=== PATIENT | female | born 1955 | race Caucasian/White ===

== ENCOUNTER → 2017-07-03 | Outpatient (CLI) | payer OTHER ==
[~2017-07-03] MED LIST: ACET-1175 PO; ALUMSUS68 PO; BABY SHAMPOO TOP; CARB1SOL8 OT; CHONCAP PO; CLR10 PO; CLTP PO; CLX20 PO; FLNIN NAE; GLUC10007 PO; KLN5X PO; LOPE-5 PO; LOVA20TA4 PO; MULT-506 PO; OXYB15TA12 PO; SALI0.6517 NAE; [UNRECOGNIZED DRUG - CODE] TOP
--- NOTE | 2017-07-04 15:22 | MAMMOGRAPHY REPORT ---
BILATERAL DIGITAL SCREENING MAMMOGRAM WITH CAD: 07/03/2017 CLINICAL HISTORY: Routine screening. Patient has no complaints. TECHNIQUE: Current study was also evaluated with a Computer Aided Detection (CAD) system. Bilateral CC and MLO views were obtained. Note that there were difficulties with positioning due to the patie nt's condition. COMPARISON: Comparison is made to exams dated: 07/02/2016 mammogram, 06/29/2015 mammogram, 4 mammogram, 06/23/2013 mammogram, 06/22/2012 mammogram, and 06/13/2010 mammogram - [facility]. BREAST COMPOSITION: The tissue of both breasts is almost entirely fatty. FINDINGS: No suspicious masses, calcifications, or areas of architectural distortion are noted in ei ther breast. There has been no significant interval change compared to prior exams. Scattered bilater al benign-appearing calcifications are not significantly changed. Small benign appearing mass in the left lower inner quadrant is stable. IMPRESSION: ACR BI-RADS CATEGORY 2: BENIGN There is no mammographic evidence of malignancy. A 1 year screening mammogram is recommended. The pa tient will receive written notification of the results. Approximately 10% of breast cancers are not detected with mammography. A negative mammographic report should not delay biopsy if a clinically suggestive mass is present. Nyasia Mcclure M.D. ah/:07/03/2017 16:17:03 Cyber Software Engineer: Meseret VENEGAS(R)(M), [facility] letter sent: Normal 1/2 BI-RADS Code: ACR BI-RADS Category 2: Benign
== END | disposition home or self-care (01) ==
LOC: C.MAMM 14:55
PROVIDERS: ATTEND Family Medicine
DX: Z12.31 Encounter for screening mammogram for malignant neoplasm of breast (principal)

== ENCOUNTER 2017-10-02 13:12 | Emergency (ER) | payer OTHER ==
[~2017-10-02 13:12] MED LIST changes: -CARB1SOL8 OT; -CLR10 PO; -KLN5X PO; -LOVA20TA4 PO; -MULT-506 PO
[2017-10-02 13:16] VITALS: TEMP 36.4
--- NOTE | 2017-10-02 14:07 | DIAGNOSTIC IMAGING REPORT ---
HEAD CT NONCONTRAST CT DOSE: HISTORY: Fall, head pain TECHNIQUE: Multiaxial CT images of the head were performed without the use of intravenous contrast. Automated exposure control was utilized for this study. A dose lowering technique was utilized adhering to the principles of ALARA. Comparison: Head CT 06/20/2015. Findings: The paranasal sinuses and mastoid air cells are clear. The calvarium and skull base are intact. The ventricles and sulci are within normal limits. There is no mass, hematoma, midline shift, or acute infarct. Impression: No acute intracranial abnormality. Electronically signed by: Jason Goff M.D. 10/02/2017 2:06 PM Dictated Date/Time: 10/02/2017 1:58 PM
--- NOTE | 2017-10-02 14:11 | DIAGNOSTIC IMAGING REPORT ---
CT OF THE CERVICAL SPINE WITHOUT CONTRAST CLINICAL HISTORY: Fall. COMPARISON STUDY: Cervical spine CT June 20, 2015. TECHNIQUE: Helical axial images of the cervical spine were obtained without IV contrast. Sagittal and coronal reconstructions were viewed. A dose lowering technique was utilized adhering to the principles of ALARA. FINDINGS: There is straightening of the normal cervical lordosis. Alignment is otherwise anatomic. The craniocervical junction is intact. There is no acute cervical spine fracture or prevertebral edema. There is extensive anterior and posterior osteophytosis with moderate multilevel disc space narrowing and mild multilevel facet arthrosis. There is an incomplete posterior arch of C1. A right lobe thyroid nodule is again noted. IMPRESSION: No acute cervical spine fracture or subluxation. Electronically signed by: Ryan Jane M.D. 10/02/2017 2:10 PM Dictated Date/Time: 10/02/2017 2:03 PM
--- NOTE | 2017-10-02 14:18 | DIAGNOSTIC IMAGING REPORT ---
R ELBOW MIN 3 VIEWS ROUTINE CLINICAL HISTORY: Fall, R elbow pain trauma. Pain. COMPARISON: None. DISCUSSION: Generalized degenerative change all major joint compartments. Moderate osteophytic change throughout. No evidence for significant joint effusion. Cortical margins appear intact. Possible subtle cortical defect of the right humeral neck on the single AP projection. This cannot be duplicated on any additional view. IMPRESSION: Moderate degenerative change. Artifact versus small short segment cortical defect radial neck. CT of the elbow is suggested as follow-up. The above report was generated using voice recognition software. It may contain grammatical, syntax or spelling errors. Electronically signed by: Tono Jeffery M.D. 10/02/2017 2:17 PM Dictated Date/Time: 10/02/2017 2:15 PM
--- NOTE | 2017-10-02 14:34 | EMERGENCY ROOM VISIT NOTE ---
History First contact with patient: 13:20 Chief Complaint: FALL Stated Complaint: FELL, HIT HEAD AND R ARM History of Present Illness The patient is a 62 year old female who presents to the Emergency Room via private vehicle accompanied by caregiver with complaints of "fell, hit head and right arm". The patient is intellectually disabled and lives with a local personal nursing home/skills. She converses well. Was identified that yesterday she was walking, and fell striking the frontal region of her head as well as her right elbow. There was no loss of consciousness. Since that time she's been complaining of a headache, and right elbow pain. There has been no vomiting. Her immunizations are up-to-date. Review of Systems A complete 10-point Review of Systems was discussed with the patient, with pertinent positives and negatives listed in the History of Present Illness. All remaining Review of Systems questions can be considered negative unless otherwise specified. Past Medical/Surgical History Medical Problems: (1) Degenerative disc disease (2) Depression (3) Left leg pain (4) Mental retardation (5) Migraine Social History Smoking Status: Never Smoker Alcohol Use: none Drug Use: none Marital Status: single Housing Status: assisted living Occupation Status: disabled Current/Historical Medications Scheduled Calcium Carbonate-Cholecalcife (Calcium 600+D3), 1 TAB PO BID Citalopram Hydrobromide (Celexa), 20 MG PO DAILY Clonazepam (Clonazepam), 0.25 MG PO DAILY Diphenhydramine-Zinc Acetate (Benadryl Extra Strength), 1 APPLN TOP Q4 Fluticasone Propionate (Nasal) (Flonase Allergy Relief), 2 SPRAYS NEVAEH DAILY Glucosamine-Chondroitin (Glucosamine-Chondroitin D), 1 CAP PO DAILY Loratadine (Claritin), 10 MG PO DAILY Lovastatin (Mevacor), 20 MG PO DAILY Multivitamin (Multivitamin), 1 TAB PO DAILY Nasal Moisturizer Combination ([place] Ultra Saline Nasal), 1 SPRAY NEVAEH PRN UD Oxybutynin Chloride (Ditropan Xl), 2 TAB PO DAILY Polyethylene Glycol 3350 (Miralax), 17 GM PO BID Scheduled PRN Acetaminophen (Tylenol), 1-2 TABS PO TID PRN for Pain or Fever Carbamide Peroxide (Otic) (Debrox), 1 APPLN OT UD PRN for EAR WAX BUILD UP Loperamide Hcl (Imodium), 2 MG PO QID PRN for Diarrhea Pseudoephedrine Hcl (Sudafed Nasal Decongestan), 1 TAB PO Q4-6HRS PRN for Nasal Congestion Physical Exam Vital Signs Date Time Temp Pulse Resp B/P (MAP) Pulse Ox O2 Delivery O2 Flow Rate FiO2 10/02/17 15:16 59 20 151/78 100 Room Air 10/02/17 13:16 36.4 68 20 137/83 98 Room Air Physical Exam VITAL SIGNS - Vital signs and nursing notes were reviewed. Stable. GENERAL -62-year-old female appearing her stated age who is in no acute distress. Communicates well with provider and answers questions appropriately. SKIN - Without rashes. There is an abrasion overlying the dorsal aspect of the right elbow as well as the right superior frontal region of the patient's forehead. There is no bleeding noted. These are beginning to heal. HEAD - NC/AT. No franco signs or raccoons eyes. Small abrasion is noted above. EYES -Sclera anicteric. EARS - No deformities of external structures noted on gross examination bilaterally. No hemotympanum. NOSE - Midline and without cyanosis. No epistaxis or purulent drainage noted. MOUTH/OROPHARYNX - Without perioral cyanosis. NECK - Neck with FROM. No C-spine tenderness. LUNGS - Chest wall symmetric without accessory muscle use, intercostals retractions, or central cyanosis. Normal vesicular breath sounds CTA B/L. No wheezes, rales, or rhonchi appreciated. CARDIAC - RRR with S1/S2. No murmur, rubs, or gallops appreciated. EXTREMITIES - No clubbing or peripheral cyanosis. No pretibial edema present. Right elbow tenderness. There is no proximal or distal tenderness other than that pinpoint at the right elbow. Decreased range of motion of the right elbow secondary to pain. +5/5 strength noted in UE/LE bilaterally. Medical Decision & Procedures ER Provider Diagnostic Interpretation: HEAD CT NONCONTRAST CT DOSE: HISTORY: Fall, head pain TECHNIQUE: Multiaxial CT images of the head were performed without the use of intravenous contrast. Automated exposure control was utilized for this study. A dose lowering technique was utilized adhering to the principles of ALARA. Comparison: Head CT 06/20/2015. Findings: The paranasal sinuses and mastoid air cells are clear. The calvarium and skull base are intact. The ventricles and sulci are within normal limits. There is no mass, hematoma, midline shift, or acute infarct. Impression: No acute intracranial abnormality. Electronically signed by: Jason Goff M.D. 10/02/2017 2:06 PM Dictated Date/Time: 10/02/2017 1:[address] OF THE CERVICAL SPINE WITHOUT CONTRAST CLINICAL HISTORY: Fall. COMPARISON STUDY: Cervical spine CT June 20, 2015. TECHNIQUE: Helical axial images of the cervical spine were obtained without IV contrast. Sagittal and coronal reconstructions were viewed. A dose lowering technique was utilized adhering to the principles of ALARA. FINDINGS: There is straightening of the normal cervical lordosis. Alignment is otherwise anatomic. The craniocervical junction is intact. There is no acute cervical spine fracture or prevertebral edema. There is extensive anterior and posterior osteophytosis with moderate multilevel disc space narrowing and mild multilevel facet arthrosis. There is an incomplete posterior arch of C1. A right lobe thyroid nodule is again noted. IMPRESSION: No acute cervical spine fracture or subluxation. Electronically signed by: Ryan Jane M.D. 10/02/2017 2:10 PM R ELBOW MIN 3 VIEWS ROUTINE CLINICAL HISTORY: Fall, R elbow pain trauma. Pain. COMPARISON: None. DISCUSSION: Generalized degenerative change all major joint compartments. Moderate osteophytic change throughout. No evidence for significant joint effusion. Cortical margins appear intact. Possible subtle cortical defect of the right humeral neck on the single AP projection. This cannot be duplicated on any additional view. IMPRESSION: Moderate degenerative change. Artifact versus small short segment cortical defect radial neck. CT of the elbow is suggested as follow-up. The above report was generated using voice recognition software. It may contain grammatical, syntax or spelling errors. Electronically signed by: Tono Jeffery M.D. 10/02/2017 2:[address] SCAN OF THE RIGHT ELBOW WITHOUT IV CONTRAST CLINICAL HISTORY: Fall with right elbow pain. COMPARISON STUDY: Radiographs of the right elbow dated 10/02/2017. TECHNIQUE: CT scan of the right elbow is performed from the distal humerus to the radial and ulnar shafts. Images are reviewed in the axial, sagittal, and coronal planes. IV contrast was not administered for this examination. A dose lowering technique was utilized adhering to the principles of ALARA. The examination is degraded by motion artifact. CT DOSE: 226.90 mGy.cm FINDINGS: The skeletal structures are osteopenic. No fracture is identified. The joint spaces of the elbow are maintained. Enthesophytes are present along the humeral epicondyles. Minimal spurring is seen along the radial head. No joint effusion is identified. There is dorsal soft tissue swelling. IMPRESSION: 1. Dorsal soft tissue swelling with no right elbow fracture identified. 2. Osteopenia and degenerative change as above. Dictated: 10/02/2017 3:05 PM Transcribed: 10/02/2017 3:26 PM R[place]hawn Electronically signed by: Gregg Ponce M.D. 10/02/2017 3:38 PM Dictated Date/Time: 10/02/2017 3:05 PM Medical Decision Patient was seen and evaluated as above. She presents to us today status post fall with a headache and right elbow pain. She is nontoxic on exam. Decision was made to obtain a CT scan of the patient's head, and neck secondary to the potential distracting injury. There is no fracture or dislocation. The x-ray of the right elbow does reveal a potential fracture versus artifact. Radiologist does recommend CT scan of the patient's elbow for definitive identification of potential fracture. This was obtained. Results as above. There is no fracture. I suspect the patient has contusions of these regions and soft tissue bruising but do not suspect any fracture. I do not suspect any intracranial bleeding. She will be discharged home with family doctor follow- up for her CT scan of her results as well as her visit here today. They were educated upon management, educated upon worrisome symptoms in which to return, had questions answered prior to discharge, and were discharged home in good condition. Vital signs reviewed and reveal that her blood pressure is elevated I believe secondary to situation. Medications list was reviewed. Case was discussed with the attending physician who also personally evaluated the patient. In the evaluation and treatment of this patient, the following differential diagnoses were considered: Concussion, Contrecoup Injury, Brain Tumor, Depression, Encephalitis, Hypothyroidism, Meningitis, CVA, TIA, Migraine, Cluster Headache, Intracranial Abnormality, Intracranial Hemorrhage, Subdural Hematoma, Subarachnoid Hemorrhage, Hydrocephalus, Forearm Contusion, Radial Head Fracture, Radial Styloid Process Fracture, Ulnar Styloid Process Fracture, Radius Fracture, Ulnar Fracture, Tennis Elbow, Golfer's Elbow, or Elbow Fracture. Impression Primary Impression: Fall Additional Impression: Contusion of multiple sites Departure Information Dispostion Home / Self-Care Condition GOOD Referrals No Doctor, Assigned (PCP) Patient Instructions [facility] Additional Instructions You have been treated in the Emergency Department for a Closed Head Injury. CT Scan of your head/brain/neck/elbow demonstrated no acute bleeding or other emergent findings. This does not completely rule out the risk for future damage to the brain. For pain control, you can use the following [id number] medicines if no liver or kidney problems: - Regular strength (325mg/tab) Tylenol (acetaminophen) 2 tabs every 4-6 hours as needed. Do not exceed 12 tablets in a 24 hour period. Avoid taking more than 3 grams (3000 mg) of Tylenol per day. This includes any other sources of acetaminophen you may take on a regular basis. - Regular strength (200 mg/tab) Advil (ibuprofen) 1-2 tabs every 4-6 hours as needed. Do not exceed a dose of 3200 mg per day. You should relax in a quiet, dark place for the rest of the day. Avoid any possible triggers including: cigarette smoke, caffeine, nicotine, chocolate, wine, beer, loud noises or music, or bright lights. You should schedule a follow-up appointment in 2-3 days with your Primary Care Provider or established Neurologist for further evaluation and treatment of your Headache and follow up for the xray and ct findings. Return to the Emergency Department if your current symptoms worsen despite treatment course outlined above, or if you develop any of the following symptoms : intractable pain despite aforementioned treatment course, visual disturbances , loss of vision, unilateral weakness or facial drooping, slurring of speech, loss of coordination, or loss of consciousness. HEAD CT NONCONTRAST CT DOSE: HISTORY: Fall, head pain TECHNIQUE: Multiaxial CT images of the head were performed without the use of intravenous contrast. Automated exposure control was utilized for this study. A dose lowering technique was utilized adhering to the principles of ALARA. Comparison: Head CT 06/20/2015. Findings: The paranasal sinuses and mastoid air cells are clear. The calvarium and skull base are intact. The ventricles and sulci are within normal limits. There is no mass, hematoma, midline shift, or acute infarct. Impression: No acute intracranial abnormality. Electronically signed by: Jason Goff M.D. 10/02/2017 2:06 PM Dictated Date/Time: 10/02/2017 1:[address] OF THE CERVICAL SPINE WITHOUT CONTRAST CLINICAL HISTORY: Fall. COMPARISON STUDY: Cervical spine CT June 20, 2015. TECHNIQUE: Helical axial images of the cervical spine were obtained without IV contrast. Sagittal and coronal reconstructions were viewed. A dose lowering technique was utilized adhering to the principles of ALARA. FINDINGS: There is straightening of the normal cervical lordosis. Alignment is otherwise anatomic. The craniocervical junction is intact. There is no acute cervical spine fracture or prevertebral edema. There is extensive anterior and posterior osteophytosis with moderate multilevel disc space narrowing and mild multilevel facet arthrosis. There is an incomplete posterior arch of C1. A right lobe thyroid nodule is again noted. IMPRESSION: No acute cervical spine fracture or subluxation. Electronically signed by: Ryan Jane M.D. 10/02/2017 2:10 PM R ELBOW MIN 3 VIEWS ROUTINE CLINICAL HISTORY: Fall, R elbow pain trauma. Pain. COMPARISON: None. DISCUSSION: Generalized degenerative change all major joint compartments. Moderate osteophytic change throughout. No evidence for significant joint effusion. Cortical margins appear intact. Possible subtle cortical defect of the right humeral neck on the single AP projection. This cannot be duplicated on any additional view. IMPRESSION: Moderate degenerative change. Artifact versus small short segment cortical defect radial neck. CT of the elbow is suggested as follow-up. The above report was generated using voice recognition software. It may contain grammatical, syntax or spelling errors. Electronically signed by: Tono Jeffery M.D. 10/02/2017 2:[address] SCAN OF THE RIGHT ELBOW WITHOUT IV CONTRAST CLINICAL HISTORY: Fall with right elbow pain. COMPARISON STUDY: Radiographs of the right elbow dated 10/02/2017. TECHNIQUE: CT scan of the right elbow is performed from the distal humerus to the radial and ulnar shafts. Images are reviewed in the axial, sagittal, and coronal planes. IV contrast was not administered for this examination. A dose lowering technique was utilized adhering to the principles of ALARA. The examination is degraded by motion artifact. CT DOSE: 226.90 mGy.cm FINDINGS: The skeletal structures are osteopenic. No fracture is identified. The joint spaces of the elbow are maintained. Enthesophytes are present along the humeral epicondyles. Minimal spurring is seen along the radial head. No joint effusion is identified. There is dorsal soft tissue swelling. IMPRESSION: 1. Dorsal soft tissue swelling with no right elbow fracture identified. 2. Osteopenia and degenerative change as above. Dictated: 10/02/2017 3:05 PM Transcribed: 10/02/2017 3:26 PM CHARIS_Mitch Electronically signed by: Gregg Ponce M.D. 10/02/2017 3:38 PM Dictated Date/Time: 10/02/2017 3:05 PM Problem Qualifiers
[2017-10-02 15:16] VITALS: BP 151/78; PULSE 59; O2SAT 100
--- NOTE | 2017-10-02 15:26 | DIAGNOSTIC IMAGING REPORT ---
CT SCAN OF THE RIGHT ELBOW WITHOUT IV CONTRAST CLINICAL HISTORY: Fall with right elbow pain. COMPARISON STUDY: Radiographs of the right elbow dated 10/02/2017. TECHNIQUE: CT scan of the right elbow is performed from the distal humerus to the radial and ulnar shafts. Images are reviewed in the axial, sagittal, and coronal planes. IV contrast was not administered for this examination. A dose lowering technique was utilized adhering to the principles of ALARA. The examination is degraded by motion artifact. CT DOSE: 226.90 mGy.cm FINDINGS: The skeletal structures are osteopenic. No fracture is identified. The joint spaces of the elbow are maintained. Enthesophytes are present along the humeral epicondyles. Minimal spurring is seen along the radial head. No joint effusion is identified. There is dorsal soft tissue swelling. IMPRESSION: 1. Dorsal soft tissue swelling with no right elbow fracture identified. 2. Osteopenia and degenerative change as above. Dictated: 10/02/2017 3:05 PM Transcribed: 10/02/2017 3:26 PM CHARIS_Mitch Electronically signed by: Gregg Ponce M.D. 10/02/2017 3:38 PM Dictated Date/Time: 10/02/2017 3:05 PM
[2017-10-02] MEDS ORDERED: CALC1TAB74 PO (15:40)
[2017-10-02] MEDS ORDERED: CARB1SOL8 OT ×2 (15:40→17:00)
[2017-10-02] MEDS ORDERED: OXYB15TA12 PO (15:40)
[2017-10-02] MEDS ORDERED: IMD/2 PO (15:40)
[2017-10-02] MEDS ORDERED: GLUC500C5 PO (15:40)
[2017-10-02] MEDS ORDERED: FLUT0.15 NAE (15:40)
[2017-10-02] MEDS ORDERED: DIPHCRE TOP (15:40)
[2017-10-02] MEDS ORDERED: POLY335019 PO (15:40)
[2017-10-02] MEDS ORDERED: ACET-1256 PO (15:40)
[2017-10-02] MEDS ORDERED: PSEU30TA3 PO (15:40)
[2017-10-02] MEDS ORDERED: NASASPR NAE (15:40)
[2017-10-02] MEDS ORDERED: CITA20TA9 PO (15:40)
--- NOTE | 2017-10-02 15:52 | EMERGENCY ROOM VISIT NOTE ---
ED Visit Note First contact with patient: 13:20 The patient was seen and examined with Jake Mosquera PA-C. I agree with the history, physical and findings. Please see the note for disposition and details.
[2017-10-02] MEDS ORDERED: KLN5X PO (17:00)
[2017-10-02] MEDS ORDERED: MULT-506 PO (18:57)
[2017-10-02] MEDS ORDERED: CLR10 PO (19:01)
[2017-10-02] MEDS ORDERED: LOVA20TA4 PO (19:04)
== END 2017-10-02 16:03 | disposition home or self-care (01) ==
LOC: C.EDB 13:14 → C.EDD 16:03
DX: S00.83XA Contusion of other part of head, initial encounter (principal); S50.01XA Contusion of right elbow, initial encounter; W18.30XA Fall on same level, unspecified, initial encounter; Y92.199 Unspecified place in other specified residential institution as the place of occurrence of the external cause; S00.81XA Abrasion of other part of head, initial encounter; S50.311A Abrasion of right elbow, initial encounter; F79 Unspecified intellectual disabilities; F32.9 Major depressive disorder, single episode, unspecified

== ENCOUNTER 2017-12-26 14:02 | Emergency (ER) | payer OTHER ==
[~2017-12-26] VITALS: Ht 167.6 cm; Wt 96.0 kg
[~2017-12-26 14:02] MED LIST changes: -ACET-1175 PO; +ACET-1256 PO; -ALUMSUS68 PO; -BABY SHAMPOO TOP; +CALC1TAB74 PO; +CARB1SOL8 OT; -CHONCAP PO; +CITA20TA9 PO; +CLR10 PO; -CLTP PO; -CLX20 PO; +DIPHCRE TOP; -FLNIN NAE; +FLUT0.15 NAE; -GLUC10007 PO; +GLUC500C5 PO; +IMD/2 PO; +KLN5X PO; -LOPE-5 PO; +LOVA20TA4 PO; +MULT-506 PO; +NASASPR NAE; +POLY335019 PO; +PSEU30TA3 PO; -SALI0.6517 NAE; -[UNRECOGNIZED DRUG - CODE] TOP
[2017-12-26] MEDS ORDERED: LIDO/EPINEPHRINE/SOD BICARB 20 ML VIAL INFIL ONE (14:08)
[2017-12-26] MEDS ORDERED: XYLOCAINE 1%/SOD BICARB 20 ML VIAL INFIL ONE (14:09)
[2017-12-26 14:10] VITALS: TEMP 37; Ht 167.6 cm; Wt 96.0 kg
[2017-12-26] MEDS ORDERED: ACETAMINOPHEN 500 MG TAB PO STA (14:18)
[2017-12-26] MEDS ORDERED: LIDOCAINE/EPINEPH/TETRACAINE 1 EA SYR ONE (14:18)
[2017-12-26] MEDS ORDERED: LIDOCAINE/EPINEPH/TETRACAINE 1 EA SYR EXT STA (14:18)
--- NOTE | 2017-12-26 14:28 | EMERGENCY ROOM VISIT NOTE ---
ED Visit Note First contact with patient: 14:10 CHIEF COMPLAINT: Fall, facial laceration HISTORY OF PRESENT ILLNESS: This 62-year-old female patient presents emergency department from [facility] via EMS after a ground-level fall with resultant facial laceration that occurred approximately 1 hour ago. Patient states that she was walking outside up a hill when she lost her balance and fell forward hitting her face on the pavement of the road. Patient complains of forehead pain and nose pain. There was no loss of consciousness, vomiting, or unusual behavior afterwards. Patient has mental disability at baseline, she is at her cognitive baseline per EMS. She denies any neck pain. No headache, nausea, or blurred vision. There is minimal bleeding from the laceration. The patient rates the pain as 2/10. The patient's tetanus shot is up to date. She denies any chest pain, shortness of breath, back pain, abdominal pain, pain in the extremities, weakness or numbness in the extremities, or unusual rash. REVIEW OF SYSTEMS: A complete 10 point review of systems was reviewed with the patient with pertinent positives and negatives as per history of present illness. All else were negative. ALLERGIES: No known allergies MEDICATIONS: Reviewed in chart. PMH: Reviewed in chart. SOCIAL HISTORY: Resident at [facility]. Denies tobacco use. PHYSICAL EXAM: VITAL SIGNS - Vital signs and nursing notes were reviewed. GENERAL - Pleasant and cooperative. No acute distress. Communicates well with provider and answers questions appropriately. HEAD - Normocephalic. No Kenyon's Sign or Raccoon's Eyes. No depressed skull fractures palpable. FACE - No facial bone tenderness or mandibular tenderness. The mouth can open fully. The teeth are well aligned. No loose or chipped teeth. SKIN - There is a 3 cm laceration on the left forehead just above the eyebrow. The edges gape apart with traction. There is no active bleeding and no foreign material in the wound. There are no deep structures present. Capillary refill less than two seconds. Normal sensation to light and sharp touch. EYES - PERRLA with EOMI bilaterally. Without subconjunctival hemorrhage. Palpebral conjunctiva pink and moist with no injection. EARS - No deformities of external structures noted on gross examination bilaterally. No hemotympanum present. No tympanic perforation noted. NOSE - Midline and without cyanosis. No epistaxis or clear watery discharge noted. There is a mild abrasion noted over the bridge of the nasal bone, no ecchymosis or significant swelling. Septum midline without deviation. No septal hematoma noted. MOUTH/OROPHARYNX - Without perioral cyanosis. Tongue midline with equal elevation of palate bilaterally. No blood noted in the oropharynx. No tonsillar hypertrophy, erythema, or exudates noted. No dental fractures noted. NECK - FROM assessed. No nuchal rigidity. No tenderness to palpation over the cervical spinous processes. No cervical paraspinal muscle tenderness noted. LUNGS - Chest wall symmetric without accessory muscle use, intercostals retractions, or central cyanosis. Normal vesicular breath sounds CTA B/L. No wheezes, rales, or rhonchi appreciated. CARDIAC - RRR with S1/S2. No murmur, rubs, or gallops appreciated. ABDOMEN - Abdominal contour normal without pulsations or visible masses. BS normoactive all four quadrants. EXTREMITIES - No gross deformities noted of the extremities. +2 radial and dorsalis pedis pulses palpated throughout. FROM with no tremors, fasciculations , or clonus noted on PROM throughout. +5/5 strength noted in UE/LE bilaterally. NEUROLOGIC - Cranial nerves II through XII grossly intact, no facial droop. Sensory intact to light touch throughout. Negative Pronator Drift. PSYCH - A&Ox4 and cooperates fully with examiner. Pt is very pleasant and interacts well with examiner. ED COURSE AND MEDICAL DECISION MAKING: CC: Patient presenting with complaint of fall, facial laceration DIFFERENTIAL DIAGNOSIS: Includes, but not limited to facial laceration, contusion, abrasion, skull fracture, facial bone fracture, intracranial hemorrhage, cervical spine injury, viral illness, bronchitis, pneumonia, strep, among others. IMAGING: HEAD WITHOUT CONTRAST (CT) CLINICAL HISTORY: 62 years-old Female with fall, hit face, eval trauma. Acute facial injury status post fall. Left forehead laceration TECHNIQUE: Multiple axial CT images of the head were obtained without contrast. A dose lowering technique was utilized adhering to the principles of ALARA. CT DOSE: 1005.77 mGy.cm COMPARISON: Head CT 10/02/2017. FINDINGS: No acute intracranial hemorrhage, midline shift, intracranial mass, hydrocephalus, territorial ischemia or abnormal extra-axial collection. Ill-defined areas of low-attenuation within the subcortical white matter suggest chronic microvascular ischemic changes. The calvarium is intact. The paranasal sinuses, mastoid air cells, and middle ear cavities are clear. Mild soft tissue swelling about the left forehead. IMPRESSION: No acute intracranial abnormality or calvarial fracture. ----- FACIAL BONES-MXILLOFAC WITHOUT CLINICAL HISTORY: 62 years-old Female presenting with fall, hit face, eval trauma. TECHNIQUE: Multidetector CT of the face was performed without the use of intravenous contrast. IV contrast: None. A dose lowering technique was used consistent with the principles of ALARA (as low as reasonably achievable). COMPARISON: 06/20/2015. CT DOSE (mGy.cm): The estimated cumulative dose is 1005.[address] head. 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 Paranasal sinuses and mastoid air cells clear. Skull base intact. Slight anterior and inferior subluxation of the right mandibular condyle relative to the right temporal mandibular fossa. No mandibular fracture. Slight leftward deviation of the bony nasal septum without evidence of fracture. Orbits intact. Limited intracranial evaluation within normal limits. Soft tissues of the face within normal limits. Dentures are in place. The upper airway is grossly patent. Nasal bones are slightly deviated to the right with deformity of the nasal bones suggesting nondisplaced fracture. IMPRESSION: 1. Possible nondisplaced nasal bone fractures. Correlate with point tenderness. Alternatively, this may represent a chronic deformity. 2. No other evidence of facial fracture. 3. Subluxation of the right temporomandibular joint. Correlate clinically. ----- CERVICAL SPINE W/O CLINICAL HISTORY: 62 years-old Female with fall, hit face, eval trauma. Acute posttraumatic neck pain COMPARISON: CT cervical spine 10/02/2017. TECHNIQUE: Multiple axial CT images of the cervical spine were obtained without contrast. A dose lowering technique was utilized adhering to the principles of ALARA. FINDINGS: No is made of congenital incomplete fusion of the posterior arch C1. No acute fracture or subluxation. Multilevel facet arthrosis, endplate spurring and intervertebral disc space narrowing. Large anterior and posterior endplate osteophytes are seen. Large posterior disc ossify complex formation at C4-C5. Evaluation of the central canal and neuroforamen would be better evaluated by MRI. No pneumothorax. 1.1 cm low attenuating right thyroid nodule. No pathologically enlarged lymph nodes identified. Layering secretions are noted within the airway. Mastoid air cells and middle ear cavities are clear. Mild mucosal thickening of the ethmoid air cells. IMPRESSION: No acute cervical spine fracture or subluxation. ----- CHEST ONE VIEW PORTABLE HISTORY: 62 years-old Female eval cough acute cough COMPARISON: Chest radiograph 07/24/2007 TECHNIQUE: Portable AP view of the chest FINDINGS: Cardiac silhouette is mildly enlarged. No pneumothorax, pleural effusion, lobar airspace consolidation or overt pulmonary edema. Mild right hemidiaphragmatic elevation with subsegmental bibasilar opacities suggesting atelectasis. Bones of the chest appear grossly intact. Degenerative changes are seen within the bilateral shoulders. IMPRESSION: 1. Cardiomegaly without acute process. 2. Mild right hemidiaphragmatic elevation with bibasilar opacities suggesting atelectasis. PROCEDURE NOTE: Facial Laceration Repair Verbal consent was obtained to perform the laceration repair procedure. Using sterile technique, the wound was cleansed with Betadine. The area was sterilely draped. LET gel was used to anesthetize the laceration on the face. Once the patient was anesthetized, the wound was copiously irrigated under pressure with sterile saline. The wound was explored and was as described above. The laceration was repaired using 4 subcuticular 6-0 Vicryl sutures, and the skin was then closed with 3 layers of Dermabond, with the wound edges being well approximated. The patient tolerated the procedure well. Hemostasis was achieved. No complications were met. MEDICATION RECONCILIATION: I attest that I have personally reviewed the patient 's current medication list. INITIAL VITAL SIGNS REVIEW: I reviewed the patient's initial vital signs and interpret them as follows: T: Afebrile; BP: Normotensive; HR: Within normal limits; RR: Within normal limits; Pulse Ox: Within normal limits on room air. Blood pressure screening: The patient was found to have normal blood pressure on screening and does not require follow-up for repeat blood pressure check. SUMMARY: Patient was evaluated at bedside, history and physical exam performed. There is a small abrasion over the bridge of the nose, but no septal deviation or hematoma. There is a laceration above the left eyebrow, with no active bleeding. Orders were placed at bedside for CT imaging of the head, facial bones, and C- spine were ordered to evaluate for trauma. Patient discussed with Dr. Marques, who agrees with my assessment and plan. Imaging reviewed as above, no acute traumatic injuries appreciated. Evidence of nasal bone fractures, this does not appear to be new when compared to previous CT imaging. Note of possible right TMJ subluxation. I did reexamine the patient, she denies any pain of the jaw, and is able to open and close mouth with any discomfort or clicking, no obvious subluxation of the right TMJ. Patient's caregiver, Kelli, did arrive at bedside and provided additional history. She states that the patient's last tetanus shot was in 2015. She also states that the patient has come in complaining of a cough and sore throat for the past 2 days, they were planning to go see the primary care provider today, however were unable to do this because of the patient's fall. The caregiver is asking that we evaluate the patient for strep throat and pneumonia. Orders were placed for rapid strep and chest x-ray, these were reviewed and are negative. Laceration repair performed at bedside without incident and the patient tolerated this well. Patient reassessed multiple times throughout ED stay, she is well-appearing and in no distress, and remained stable. She is in good spirits and is requesting to be discharged home. Patient and caregiver were updated on all results and plan for discharge, they were encouraged to follow closely with the PCP. Patient was also given strict return precautions should her symptoms worsen, she verbalized understanding. Patient was discharged home in stable condition and ambulatory. Problem List Medical Problems: (1) Degenerative disc disease Status: Chronic (2) Depression Status: Chronic (3) Left leg pain Status: Chronic (4) Mental retardation Status: Chronic (5) Migraine Status: Chronic Current/Historical Medications Scheduled Calcium Carbonate-Cholecalcife (Calcium 600+D3), 1 TAB PO BID Citalopram Hydrobromide (Celexa), 20 MG PO DAILY Clonazepam (Clonazepam), 0.25 MG PO DAILY Fluticasone Propionate (Nasal) (Flonase Allergy Relief), 2 SPRAYS NEVAEH DAILY Glucosamine-Chondroitin (Glucosamine-Chondroitin D), 1 CAP PO DAILY Loratadine (Claritin), 10 MG PO DAILY Lovastatin (Mevacor), 20 MG PO DAILY Multivitamin (Multivitamin), 1 TAB PO DAILY Nasal Moisturizer Combination ([place] Ultra Saline Nasal), 1 SPRAY NEVAEH PRN UD Oxybutynin Chloride (Ditropan Xl), 2 TAB PO DAILY Scheduled PRN Acetaminophen (Tylenol), 1-2 TABS PO TID PRN for Pain or Fever Benzonatate (Tessalon Perles), 100 MG PO TID PRN for Cough Carbamide Peroxide (Otic) (Debrox), 1 APPLN OT UD PRN for EAR WAX BUILD UP Loperamide Hcl (Imodium), 2 MG PO QID PRN for Diarrhea Allergies Uncoded Allergies: NKDA (Allergy, Unknown, 04/05/05) Vital Signs Date Time Temp Pulse Resp B/P (MAP) Pulse Ox O2 Delivery O2 Flow Rate FiO2 12/26/17 16:57 76 16 126/73 95 12/26/17 14:10 37.0 82 20 132/54 98 Room Air Medications Administered Medications (Trade) Dose Ordered Sig/Pernell Route Start Time Stop Time Status Last Admin Dose Admin Tetracaine/ Epinephrine/ Lidocaine (L.e.t. Gel 4%/ 1:100/0.5%) 1 ea STK-MED ONCE .ROUTE 12/26/17 14:18 12/26/17 14:19 DC 12/26/17 14:18 1 EA Acetaminophen (Tylenol Tab) 1,000 mg NOW STAT PO 12/26/17 14:18 12/26/17 14:22 DC 12/26/17 15:18 1,000 MG Departure Information Impression Primary Impression: Closed head injury Additional Impression: Laceration of forehead Dispostion Home / Self-Care Condition GOOD Referrals No Doctor, Assigned (PCP) Patient Instructions ED Head Injury Closed, ED Laceration Facial Skin Glue, ED Laceration Facial Sutr Tape, [facility] Additional Instructions You were evaluated and treated in the emergency department for your head injury and facial laceration. The laceration was repaired using dissolving suture that will not need to be removed, and the skin was closed with Dermabond (skin glue). The Dermabond should fall off naturally over the next 5-7 days. Do not pick at the glue, and do not apply ointments or lotions to the glue. You may wash over the area with soap and water, but do not scrub over the glued area. Pat dry after washing. Keep covered when in sun until the wound is fully healed, then SPF 50 or higher for one year. Vitamin E oil if desired two weeks after the glue has fallen off for reduction of scar. Please seek immediate medical attention for any signs of infection (increasing redness, swelling, pus drainage, streaking up the arm, fever/chills). You may have a mild concussion. It is important to observe both physical and cognitive rest while recovering from a concussion. Physical rest includes no significant physical activity or exertion, heavy lifting over 10 pounds, and increasing sleep and nap times throughout the day as needed. Cognitive rest includes taking breaks from prolonged screen time including TV, tablets, phone, or prolonged periods of talking on the telephone or reading. You should relax in a quiet, dark place for the rest of the day. Avoid any possible triggers including: cigarette smoke, caffeine, nicotine, chocolate, wine, beer, loud noises or music, or bright lights. For pain control, you can use the following onhw-dha-vcduluo medicines (if >12 yo): - Regular strength (325mg/tab) Tylenol (acetaminophen) 2 tabs every 4-6 hours as needed. Do not exceed 10 tablets in a 24 hour period. Avoid taking more than 3000 mg of Tylenol per day. This includes any other sources of acetaminophen you may take on a regular basis. - Regular strength (200 mg/tab) Advil (ibuprofen) 2 tabs every 4-6 hours as needed. Do not exceed a dose of 3200 mg per day. Follow-up with your PCP in the next few days to be rechecked. Please return to the ER for any worsening symptoms, including severe worsening headache, persistent vomiting, vision changes, confusion, numbness or weakness on one side of the body, balance issues or difficulty walking, or any other concerns. Problem Qualifiers Primary Impression: Closed head injury Encounter type: initial encounter Qualified Codes: S09.90XA - Unspecified injury of head, initial encounter Additional Impression: Laceration of forehead Encounter type: initial encounter Qualified Codes: S01.81XA - Laceration without foreign body of other part of head, initial encounter
[2017-12-26] MEDS ORDERED: BENZ100C84 PO (14:41)
--- NOTE | 2017-12-26 15:22 | DIAGNOSTIC IMAGING REPORT ---
HEAD WITHOUT CONTRAST (CT) CLINICAL HISTORY: 62 years-old Female with fall, hit face, eval trauma. Acute facial injury status post fall. Left forehead laceration TECHNIQUE: Multiple axial CT images of the head were obtained without contrast. A dose lowering technique was utilized adhering to the principles of ALARA. CT DOSE: 1005.77 mGy.cm COMPARISON: Head CT 10/02/2017. FINDINGS: No acute intracranial hemorrhage, midline shift, intracranial mass, hydrocephalus, territorial ischemia or abnormal extra-axial collection. Ill-defined areas of low-attenuation within the subcortical white matter suggest chronic microvascular ischemic changes. The calvarium is intact. The paranasal sinuses, mastoid air cells, and middle ear cavities are clear. Mild soft tissue swelling about the left forehead. IMPRESSION: No acute intracranial abnormality or calvarial fracture. The above report was generated using voice recognition software. It may contain grammatical, syntax or spelling errors. Electronically signed by: Marcell Youngblood M.D. 12/26/2017 3:21 PM Dictated Date/Time: 12/26/2017 3:15 PM
--- NOTE | 2017-12-26 15:23 | DIAGNOSTIC IMAGING REPORT ---
FACIAL BONES-MXILLOFAC WITHOUT CLINICAL HISTORY: 62 years-old Female presenting with fall, hit face, eval trauma. TECHNIQUE: Multidetector CT of the face was performed without the use of intravenous contrast. IV contrast: None. A dose lowering technique was used consistent with the principles of ALARA (as low as reasonably achievable). COMPARISON: 06/20/2015. CT DOSE (mGy.cm): The estimated cumulative dose is 1005.[address] head. 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 Paranasal sinuses and mastoid air cells clear. Skull base intact. Slight anterior and inferior subluxation of the right mandibular condyle relative to the right temporal mandibular fossa. No mandibular fracture. Slight leftward deviation of the bony nasal septum without evidence of fracture. Orbits intact. Limited intracranial evaluation within normal limits. Soft tissues of the face within normal limits. Dentures are in place. The upper airway is grossly patent. Nasal bones are slightly deviated to the right with deformity of the nasal bones suggesting nondisplaced fracture. IMPRESSION: 1. Possible nondisplaced nasal bone fractures. Correlate with point tenderness. Alternatively, this may represent a chronic deformity. 2. No other evidence of facial fracture. 3. Subluxation of the right temporomandibular joint. Correlate clinically. Electronically signed by: Brad Kim M.D. 12/26/2017 3:22 PM Dictated Date/Time: 12/26/2017 3:18 PM
--- NOTE | 2017-12-26 15:30 | DIAGNOSTIC IMAGING REPORT ---
CERVICAL SPINE W/O CLINICAL HISTORY: 62 years-old Female with fall, hit face, eval trauma. Acute posttraumatic neck pain COMPARISON: CT cervical spine 10/02/2017. TECHNIQUE: Multiple axial CT images of the cervical spine were obtained without contrast. A dose lowering technique was utilized adhering to the principles of ALARA. FINDINGS: No is made of congenital incomplete fusion of the posterior arch C1. No acute fracture or subluxation. Multilevel facet arthrosis, endplate spurring and intervertebral disc space narrowing. Large anterior and posterior endplate osteophytes are seen. Large posterior disc ossify complex formation at C4-C5. Evaluation of the central canal and neuroforamen would be better evaluated by MRI. No pneumothorax. 1.1 cm low attenuating right thyroid nodule. No pathologically enlarged lymph nodes identified. Layering secretions are noted within the airway. Mastoid air cells and middle ear cavities are clear. Mild mucosal thickening of the ethmoid air cells. IMPRESSION: No acute cervical spine fracture or subluxation. The above report was generated using voice recognition software. It may contain grammatical, syntax or spelling errors. Electronically signed by: Marcell Youngblood M.D. 12/26/2017 3:29 PM Dictated Date/Time: 12/26/2017 3:24 PM
--- NOTE | 2017-12-26 15:43 | DIAGNOSTIC IMAGING REPORT ---
CHEST ONE VIEW PORTABLE HISTORY: 62 years-old Female eval cough acute cough COMPARISON: Chest radiograph 07/24/2007 TECHNIQUE: Portable AP view of the chest FINDINGS: Cardiac silhouette is mildly enlarged. No pneumothorax, pleural effusion, lobar airspace consolidation or overt pulmonary edema. Mild right hemidiaphragmatic elevation with subsegmental bibasilar opacities suggesting atelectasis. Bones of the chest appear grossly intact. Degenerative changes are seen within the bilateral shoulders. IMPRESSION: 1. Cardiomegaly without acute process. 2. Mild right hemidiaphragmatic elevation with bibasilar opacities suggesting atelectasis. The above report was generated using voice recognition software. It may contain grammatical, syntax or spelling errors. Electronically signed by: Marcell Youngblood M.D. 12/26/2017 3:42 PM Dictated Date/Time: 12/26/2017 3:41 PM
[2017-12-26] MEDS ORDERED: DIPHTHERIA/TETANUS/PERTUSSIS 0.5 ML SYR/VIAL IM. ONE (15:45)
--- NOTE | 2017-12-26 16:25 | EMERGENCY ROOM VISIT NOTE ---
ED Visit Note First contact with patient: 14:10 I did evaluate and examine this patient myself. I did guide management for the patient. I agree with the PA's assessment as discussed. Please see the PAs dictation for further details. I did independently review the x-rays and CT scans. The patient had a mechanical fall. Her CAT scans are unremarkable. She has had a cough and sore throat for 2 days. Strep testing was negative and chest x-ray did not show infiltrate. The patient's laceration was repaired. The patient was discharged with head injury precautions.
[2017-12-26 16:57] VITALS: BP 126/73; PULSE 76; O2SAT 95
== END 2017-12-26 17:06 | disposition other institution (70) ==
LOC: EDBD 14:02 → C.EDB 14:03
DX: S01.81XA Laceration without foreign body of other part of head, initial encounter (principal); W01.198A Fall on same level from slipping, tripping and stumbling with subsequent striking against other object, initial encounter; F79 Unspecified intellectual disabilities; R05 Cough; Z79.899 Other long term (current) drug therapy

== ENCOUNTER 2018-04-03 12:52 | Emergency (ER) | payer OTHER ==
[~2018-04-03 12:52] MED LIST changes: +BENZ100C84 PO; -DIPHCRE TOP; -POLY335019 PO; -PSEU30TA3 PO
[2018-04-03 12:55] VITALS: TEMP 36.7
--- NOTE | 2018-04-03 14:30 | DIAGNOSTIC IMAGING REPORT ---
R SHOULDER MIN 2 VIEWS ROUTINE CLINICAL HISTORY: FALL, R UPPER ARM PAIN trauma. Pain. COMPARISON: None. DISCUSSION: Considerable degenerative change glenohumeral and acromioclavicular joints. Peripheral osteophytic change throughout. No evidence for fracture or dislocation. Cortical margins are intact. There is no evidence for soft tissue swelling. IMPRESSION: Considerable degenerative change. No acute process. The above report was generated using voice recognition software. It may contain grammatical, syntax or spelling errors. Electronically signed by: Tono Jeffery M.D. 04/03/2018 2:28 PM Dictated Date/Time: 04/03/2018 2:26 PM
--- NOTE | 2018-04-03 14:49 | EMERGENCY ROOM VISIT NOTE ---
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 Patient provides the history, supplemented by her facility worker. Major Sales Associate was present at the time of the injury. Patient was standing outside of the vehicle, getting ready to step up on a curb. When she stepped up, her foot was not on a completely flat surface, and she lost her balance falling to the right, landing on her right shoulder. She did not strike her head or lose consciousness. She was helped up with the assistance of bystanders. Per protocol, facility worker contacted her coating mixer supervisor and ambulance was summoned. Patient complains of pain in the upper right arm, near her shoulder. She denies any neck or elbow pain. She denies any numbness or tingling. She has a history of an injury to the shoulder from my prior fall. There are no other injuries noted. REVIEW OF SYSTEMS: Review of systems as per HPI. All other systems reviewed were negative. At least 6 systems reviewed. PMH: Electronic medical records are reviewed and summarized as above/below. See Problem List. SOCIAL HISTORY: [place]. PHYSICAL EXAM: Vital Signs: Reviewed nurse's notes. CONSTITUTIONAL: Patient is a pleasant, cooperative 63-year-old female who is awake and alert and sitting semiupright on the gurney in no acute distress. MUSCULOSKELETAL: Examination of the right upper extremity does not reveal any obvious deformity, no ecchymosis or outward signs of trauma. The patient does not have any tenderness to palpation over the clavicle or the acromioclavicular joint. No pain over the body or spine of the scapula. She does have some discomfort over the proximal humerus, remainder of the humeral shaft is nontender. Right elbow is nontender to palpation, no elbow joint effusion is appreciated. The right elbow can be flexed and extended fully, pronation and supination are full. The right shoulder can be internally and externally rotated fully, she has pain with forward flexion or abduction greater than 90, good rotator cuff strength testing. The right upper extremity is neurovascularly intact. EMERGENCY DEPARTMENT COURSE: Patient was offered ice and medication for discomfort, but declined. X-rays of the right shoulder were obtained and negative for acute fracture. Supportive care measures discussed. Patient was encouraged to ice and use Tylenol or ibuprofen for discomfort. She can resume normal activity as her symptoms allow. PCP follow-up next week if her symptoms are not improving. Differential diagnoses included clavicle fracture, acromioclavicular separation , proximal humerus fracture, rotator cuff tear, fracture, dislocation, among others. Medication reconciliation: I attest that I have personally reviewed the patient' s current medication list. Blood pressure screening : Patient was found to have normal blood pressure on screening and does not require follow-up. R SHOULDER MIN 2 VIEWS ROUTINE CLINICAL HISTORY: FALL, R UPPER ARM PAIN trauma. Pain. COMPARISON: None. DISCUSSION: Considerable degenerative change glenohumeral and acromioclavicular joints. Peripheral osteophytic change throughout. No evidence for fracture or dislocation. Cortical margins are intact. There is no evidence for soft tissue swelling. IMPRESSION: Considerable degenerative change. No acute process. Problem List Medical Problems: (1) Anxiety State Nos Status: Chronic (2) Asthma, Unspecified Status: Chronic (3) Closed head injury Status: Resolved (4) Contusion of multiple sites Status: Resolved (5) Degenerative disc disease Status: Chronic (6) Depression Status: Chronic (7) Dyslipidemia Status: Chronic (8) Facial fracture Status: Resolved (9) Fall Status: Resolved (10) Laceration of forehead Status: Resolved (11) Left leg pain Status: Resolved (12) Mental retardation Status: Chronic (13) Migraine Status: Resolved (14) Nasal fracture Status: Resolved Current/Historical Medications Scheduled Calcium Carbonate-Cholecalcife (Calcium 600+D3), 1 TAB PO BID Citalopram Hydrobromide (Celexa), 20 MG PO DAILY Clonazepam (Clonazepam), 0.25 MG PO DAILY Fluticasone Propionate (Nasal) (Flonase Allergy Relief), 2 SPRAYS NEVAEH DAILY Glucosamine-Chondroitin (Glucosamine-Chondroitin D), 1 CAP PO DAILY Loratadine (Claritin), 10 MG PO DAILY Lovastatin (Mevacor), 20 MG PO DAILY Multivitamin (Multivitamin), 1 TAB PO DAILY Nasal Moisturizer Combination ([place] Ultra Saline Nasal), 1 SPRAY NEVAEH PRN UD Oxybutynin Chloride (Ditropan Xl), 2 TAB PO DAILY Scheduled PRN Acetaminophen (Tylenol), 1-2 TABS PO TID PRN for Pain or Fever Benzonatate (Tessalon Perles), 100 MG PO TID PRN for Cough Carbamide Peroxide (Otic) (Debrox), 1 APPLN OT UD PRN for EAR WAX BUILD UP Loperamide Hcl (Imodium), 2 MG PO QID PRN for Diarrhea Allergies Uncoded Allergies: NKDA (Allergy, Unknown, 04/05/05) Vital Signs Date Time Temp Pulse Resp B/P (MAP) Pulse Ox O2 Delivery O2 Flow Rate FiO2 04/03/18 15:45 82 20 172/85 98 04/03/18 12:55 36.7 65 20 116/56 100 Room Air Departure Information Impression Primary Impression: Contusion of right shoulder Additional Impression: Fall Referrals Cely Mariano M.D. (MEDICAL) (PCP) Patient Instructions My [facility] Additional Instructions Ibuprofen(Motrin, Advil) may be used for fever or pain. Use 600mg every six hours as needed. Take with food. Avoid using more than 2400mg in a 24 hour period. Do not use 2400mg per day for more than three consecutive days without physician direction. Prolonged inappropriate use can lead to stomach upset or ulcers. (AND/OR) Acetaminophen(Tylenol) may be used for fever or pain. Use 1000mg every six hours as needed. Avoid using more than 3000mg in a 24 hour period. Ice compresses for 20 minutes at a time four times daily for 2-3 days. Rest and elevate your injury may resume normal activity as your pain allows. Continue current medications. Return to the ER immediately for any numbness, tingling, severe pain, extreme swelling in the extremity or as needed. Follow-up with your primary care physician or orthopedic surgery if no improvement in 5-7 days. Problem Qualifiers Primary Impression: Contusion of right shoulder Encounter type: initial encounter Qualified Codes: S40.011A - Contusion of right shoulder, initial encounter Additional Impression: Fall Encounter type: initial encounter Qualified Codes: W19.XXXA - Unspecified fall, initial encounter
--- NOTE | 2018-04-03 15:37 | EMERGENCY ROOM VISIT NOTE ---
ED Visit Note First contact with patient: 13:02 The patient was seen and examined with Suzanna Urbina PA-C. I agree with the history, physical and findings. Please see the note for disposition and details.
[2018-04-03 15:45] VITALS: BP 172/85; PULSE 82; O2SAT 98
== END 2018-04-03 15:46 | disposition home or self-care (01) ==
LOC: EDBD 12:52 → C.EDD 12:57
DX: S40.011A Contusion of right shoulder, initial encounter (principal); W10.1XXA Fall (on)(from) sidewalk curb, initial encounter; Y92.480 Sidewalk as the place of occurrence of the external cause; Z79.899 Other long term (current) drug therapy; Z88.8 Allergy status to other drugs, medicaments and biological substances; F79 Unspecified intellectual disabilities; F32.9 Major depressive disorder, single episode, unspecified; E78.5 Hyperlipidemia, unspecified

== ENCOUNTER 2018-12-23 18:01 | Observation (INO) ==
--- NOTE | 2018-12-23 19:21 | XRay Report ---
XR chest 1V portable CLINICAL HISTORY: dysarthria pain. Dyspnea. COMPARISON STUDY: 01/03/2018 FINDINGS: The bones soft tissues and hemidiaphragms are normal. The cardiomediastinal silhouette is n ormal. The lungs are clear. The pulmonary vasculature is normal. IMPRESSION: Negative chest. The above report was generated using voice recognition software. It may contain grammatical, syntax or spelling errors. Electronically signed by: Tono Jeffery M.D. 12/23/2018 7:19 PM
[2018-12-23 19:40] LABS: Basophils # (auto) 0.02 K/uL (0-0.2); Basophils % (auto) 0.4 %; Eosinophils # (auto) 0.18 K/uL (0-0.5); Eosinophils % (auto) 3.5 %; Hematocrit (blood only) 36.6 % (37-47); Hemoglobin 12.7 g/dL (12.0-16.0); Immature Granulocytes # (auto) 0.01 K/uL (0.00-0.02); Immature Granulocytes % (auto) 0.2 %; Lymphocytes # (auto) 2.01 K/uL (1.2-3.4); Lymphocytes % (auto) 38.8 %; Mean Corpuscular Hgb Conc 34.7 g/dL (32-36); Mean Corpuscular Volume 88.8 fL (80-100); Mean Platelet Volume 9.6 fL (7.4-10.4); Monocytes % (auto) 9.7 %; Neutrophils # (auto) 2.46 K/uL (1.4-6.5); Neutrophils % (auto) 47.4 %; Platelet Count 198 K/uL (130-400); RDW Coefficient of Variation 13.3 % (11.5-14.5); RDW Standard Deviation 43.2 fL (36.4-46.3); Red Blood Count 4.12 M/uL (4.2-5.4); White Blood Count 5.18 K/uL (4.8-10.8)
[2018-12-23 19:51] LABS: Partial Thromboplastin Ratio 0.9; Partial Thromboplastin Time 23.8 Seconds (21.0-31.0); Prothrombin Time 10.6 Seconds (9.0-12.0)
[2018-12-23 19:54] LABS: Influenza A virus by PCR Neg for Influ A (Neg); Influenza B virus by PCR Neg for Influ B (Neg)
[2018-12-23 19:58] LABS: Alanine Aminotransferase 40 U/L (12-78); Albumin Level 3.7 gm/dl (3.4-5.0); Aspartate Aminotransferase 21 U/L (15-37); BUN Creatinine Ratio 31.6 (10-20); Bilirubin Direct 0.2 mg/dl (0-0.2); Blood Urea Nitrogen 26 mg/dl (7-18); Calcium 9.5 mg/dl (8.5-10.1); Carbon Dioxide 30 mmol/L (21-32); Chloride 105 mmol/L (98-107); Creatinine Clr Calc Pharmacy 72.3 ml/min; Est GFR (Non-African American) 75.1; Glucose 91 mg/dl (70-99); Magnesium 2.1 mg/dl (1.8-2.4); Potassium 3.9 mmol/L (3.5-5.1); Sodium 140 mmol/L (136-145)
[2018-12-23 20:03] LABS: Alkaline Phosphatase 127 U/L (45-117); Bilirubin,Total 0.4 mg/dl (0.2-1); Troponin I < 0.015 ng/ml (0-0.045)
--- NOTE | 2018-12-23 20:15 | CT Scan Report ---
CT head/brain wo con CT DOSE: 537.48 mGy.cm HISTORY: Mental status change dysarthria, ams, TECHNIQUE: Multiaxial CT images of the head were performed without the use of intravenous contrast. A dose lowering technique was utilized adhering to the principles of ALARA. Comparison: 01/03/2018 Findings: The paranasal sinuses and mastoid air cells are clear. The calvarium and skull base are int act. The ventricles and sulci are within normal limits. There is no mass, hematoma, midline shift, or acute infarct. Impression: No acute intracranial abnormality. The above report was generated using voice recognition software. It may contain grammatical, syntax or spelling errors. Electronically signed by: Tono Jeffery M.D. 12/23/2018 8:14 PM
[2018-12-23 21:01] LABS: Appearance Urine Clear (Clear); Bacteria Urine Automated Negative (Negative); Bilirubin Urine Negative (Negative); Blood Urine Negative (Negative); Cast Urine Automated 0 /lpf (0-5); Color Urine Yellow; Glucose Urine UA Negative (Negative); Ketones Urine Negative (Negative); Leukocyte Esterase Urine 2+ (Negative); Nitrite Urine Negative (Negative); Protein Urine Negative (Negative); RBC Urine Automated 0-4 /hpf (0-4); Specific Gravity Urine 1.011 (1.000-1.030); Urobilinogen Urine Negative (Negative); pH Urine 8.5 (4.5-7.5)
[2018-12-23] MEDS ORDERED: cefTRIAXone SODIUM 1,000 MG in DEXTROSE 5% 50 ML IV STA (21:51)
--- NOTE | 2018-12-23 21:58 | Emergency Department Note ---
Entered by Tony Nava acting as a scribe for History of Present Illness General Chief complaint: Allergic Reaction Stated complaint: REACTION TO MED Time Seen by Provider: 12/23/18 18:57 Source: other (Caregiver) Limitations: other (Cognitive delay) History of Present Illness Provider complaint: worsening fatigue/Difficulty understanding her speech. Onset (ago): week(s) (1) Location: head (Diffuse fatigue/sleeping more) Pain Consistency: + other (worsening fatigue/sleeping more) Quality: + other (Harder to understand her speech/SLeeping more) Associated symptoms: + denies other symptoms Treatments prior to arrival: none This history is limited secondary to cognitive delay. The patient is a 63 year old female who presents to the Emergency Room from [facility] for increasing and fatigue over the past week. The patient presents to the ED with her caregiver from [facility] who states that her and her staff had a meeting about the patient yesterday and all agreed that the patient was becoming increasingly difficult understand. The patient is difficult to understand at baseline, but she notes it has been harder and harder to make out her words. She also adds that the patient has been sleeping more. The [facility] primary care physician referred the patient to the ED for these complaints. The patient makes no other complaints at this time. The caregiver confirms that her lazy eye is baseline. Home Medications Home Medications Medication Instructions Recorded Confirmed Type Baby Shampoo 1 applic TOPICAL DAILY 12/23/18 12/23/18 History Chondroitin Tab 800 mg PO DAILY 12/23/18 12/23/18 History Robitussin Dm 10 ml PO Q6 PRN 12/23/18 History acetaminophen [Tylenol] 650 mg PO Q4 PRN 12/23/18 12/23/18 History alum-mag hydroxide-simeth 30 ml PO Q4 PRN 12/23/18 12/23/18 History ammonium lactate 1 applic TOPICAL HS 12/23/18 12/23/18 History calcium carbonate-vitamin D3 1 cap PO BID 12/23/18 12/23/18 History [Calcium 600 + D(3)] citalopram 20 mg PO DAILY 12/23/18 12/23/18 History clonazepam 0.25 mg PO DAILY 12/23/18 12/23/18 History fluticasone propionate [Flonase 2 spray INTRANASAL DAILY 12/23/18 12/23/18 History Allergy Relief] glucosamine sulfate [Glucosamine] 1,000 mg PO DAILY 12/23/18 12/23/18 History loperamide [Imodium A-D] 2 mg PO UD PRN 12/23/18 12/23/18 History loratadine [Claritin] 10 mg PO DAILY 12/23/18 12/23/18 History lovastatin 20 mg PO HS 12/23/18 12/23/18 History meloxicam 15 mg PO DAILY 12/23/18 12/23/18 History multivitamin 1 tab PO QAM 12/23/18 12/23/18 History uxseeoha-dlymwythePe-trqdyqatK 1 applic TOPICAL BID PRN 12/23/18 12/23/18 History [Neosporin (szf-acb-ravdi)] oxybutynin chloride 30 mg PO DAILY 12/23/18 12/23/18 History polyethylene glycol 3350 [Miralax] 17 g PO BID 12/23/18 12/23/18 History sodium chloride [Saline Nasal] 1 spray INTRANASAL DAILY 12/23/18 12/23/18 History Allergies Allergy/AdvReac Type Severity Reaction Status Date / Time No Known Allergies Allergy Unverified 10/26/18 09:57 Past Med/Surg History Medical History Allergic rhinitis (Acute) Cervical high risk HPV (human papillomavirus) test positive (Acute) Dyslipidemia (Acute) Menopause (Acute) Moderate intellectual disabilities (Acute) Family History Father , of [place] age 40 No problems noted. Sister Diabetes 1.5, managed as type 1 Social History Preferred Language: Spanish Beliefs That Will Affect Care: None Feels Safe at Home: Yes Smoking Status: Never smoker Review of Systems Unobtainable due to cognitive status Physical Exam Vital Signs Vital Signs - 24 hr 12/23/18 18:09 12/23/18 20:27 12/23/18 21:41 Temperature 36.8 C Temperature Source Oral Sepsis Recent Fever Within 48 Hours No Sepsis New/Unexplained Change in Mental Status No Sepsis Action Taken by Nursing No Action Required Pulse Rate 65 Pulse Rate [Right] 69 72 Pulse Rhythm [Right] Regular Pulse Strength [Right] Normal Respiratory Rate 18 16 16 Respiratory Effort / Characteristics Non-Labored Non-Labored Spontaneous Non-Labored Spontaneous Respiratory Depth Normal Normal Normal Blood Pressure 129/76 Blood Pressure [Right Arm] 147/69 H 168/73 H Blood Pressure Mean 93 Blood Pressure Mean [Right Arm] 95 104 Blood Pressure Position Sitting Blood Pressure Position [Right Arm] Sitting Sitting Pulse Oximetry 95 96 96 Oxygen Delivery Method Room Air Room Air Room Air Physical Exam GENERAL: Mild dysarthria noted. Patient is alert and oriented x2. She appears well-developed and well-nourished. She does not appear distressed. ____ HENT: Exam performed. -Head: Normocephalic and atraumatic. -Right Ear: External ear normal. No mastoid tenderness. -Left Ear: External ear normal. No mastoid tenderness. -Mouth/Throat: The oropharynx is clear and moist. No trismus in the jaw. No dental abscesses or uvula swelling. No oropharyngeal exudate or tonsillar abscesses. ____ EYES: Conjunctivae and EOM are normal. The left eye is lazy, baseline per caregiver. Pupils are equal, round, and reactive to light. Right eye exhibits no discharge. Left eye exhibits no discharge. No scleral icterus. ____ NECK: Normal range of motion. Neck supple. No JVD present. No spinous process tenderness present. No carotid bruit present. No rigidity. No tracheal deviation and normal range of motion present. No Brudzinski's sign and no Kernig's sign noted. ____ CV: Normal rate, regular rhythm, normal heart sounds and intact distal pulses. There is no peripheral edema. Palpable radial pulses bue. ____ PULM/CHEST: Effort normal and breath sounds normal. No respiratory distress. No stridor. She has no wheezes. She has no rales. - Chest Wall: She exhibits no tenderness. ____ ABD: The abdomen is soft. Bowel sounds are normal. She has no distension. No mass is present. There is no tenderness. There is no rebound, no guarding, no Mandujano's sign and no tenderness at McBurney's point. Rovsig negative MUSC/SKEL: Normal range of motion. There is no peripheral edema, tenderness or deformity. LYMPH: No cervical adenopathy. ____ NEURO: She is alert and oriented x2. Mild dysarthria noted. She has normal strength. No cranial nerve deficit or sensory deficit. Coordination and gait normal. cerbellar tests wnl. ____ SKIN: Skin is warm and dry. She is not diaphoretic. ____ PSYCH: She has a normal mood and affect. Her behavior is normal. Judgment and thought content normal. ____ Course 185: The patient was evaluated in room B12B, and a complete history and physical examination were performed. Review of the patients EMR shows that she has a history of an intraductal carcinoma of the right breast. She is followed by Radiation Oncology and Dr. Garay. 2100: Vital signs stable. Labs and imaging within normal limits. I discussed the case with Dr. Faulkner - Oncology. He states that Arimidex would not cause her current symptoms. Given the patient's symptoms of intermittent altered mental status and dysarthria, there is concern for TIA versus CVA. Patient will be admitted to the hospitalist service for TIA workup, MRI, and neurology consult. I reviewed the patient's case with Dr. Maryann Pace Hospitalist. He will evaluate the patient for further management. Medical Decision Making Medical Records Attestation: I reviewed the patient's medical records. Home Medications Current Medication List: was personally reviewed by me Laboratory Data Attestation: I reviewed the patient's lab results. Result diagrams: 12/23/18 19:13 12/23/18 19:13 Lab Results 12/23/18 12/23/18 12/23/18 Range/Units 19:10 19:13 19:13 WBC 5.18 (4.8-10.8) K/uL RBC 4.12 L (4.2-5.4) M/uL Hgb 12.7 (12.0-16.0) g/dL Hct 36.6 L (37-47) % MCV 88.8 (80-100) fL MCH 30.8 (25-34) pg MCHC 34.7 (32-36) g/dL RDW Std Deviation 43.2 (36.4-46.3) fL RDW Coeff of Jose 13.3 (11.5-14.5) % Plt Count 198 (130-400) K/uL MPV 9.6 (7.4-10.4) fL Immature Gran % (Auto) 0.2 % Neut % (Auto) 47.4 % Lymph % (Auto) 38.8 % Bracken % (Auto) 9.7 % Eos % (Auto) 3.5 % Baso % (Auto) 0.4 % Immature Gran # (Auto) 0.01 (0.00-0.02) K/uL Neut # (Auto) 2.46 (1.4-6.5) K/uL Lymph # (Auto) 2.01 (1.2-3.4) K/uL Bracken # (Auto) 0.50 (0.11-0.59) K/uL Eos # (Auto) 0.18 (0-0.5) K/uL Baso # (Auto) 0.02 (0-0.2) K/uL PT 10.6 (9.0-12.0) Seconds INR 1.0 (0.9-1.1) APTT 23.8 (21.0-31.0) Seconds PTT Ratio 0.9 Sodium (136-145) mmol/L Potassium (3.5-5.1) mmol/L Chloride (98-107) mmol/L Carbon Dioxide (21-32) mmol/L Anion Gap (3-11) BUN (7-18) mg/dl Creatinine (0.6-1.2) mg/dl Est Cr Clr Drug Dosing ml/min Est GFR ( Amer) Est GFR (Non-Af Amer) BUN/Creatinine Ratio (10-20) Glucose (70-99) mg/dl Lactate (0.4-2.0) mmol/L Calcium (8.5-10.1) mg/dl Magnesium (1.8-2.4) mg/dl Total Bilirubin (0.2-1) mg/dl Direct Bilirubin (0-0.2) mg/dl AST (15-37) U/L ALT (12-78) U/L Alkaline Phosphatase (45-117) U/L Troponin I (0-0.045) ng/ml Total Protein (6.4-8.2) gm/dl Albumin (3.4-5.0) gm/dl Lipase (73-393) U/L TSH (0.300-4.500) uIu/ml Urine Color Urine Appearance (Clear) Urine pH (4.5-7.5) Ur Specific [place] (1.000-1.030) Urine Protein (Negative) Urine Glucose (UA) (Negative) Urine Ketones (Negative) Urine Blood (Negative) Urine Nitrite (Negative) Urine Bilirubin (Negative) Urine Urobilinogen (Negative) Ur Leukocyte Esterase (Negative) Urine WBC (Auto) (0-5) /hpf Urine RBC (Auto) (0-4) /hpf U Hyaline Cast (Auto) (0-5) /lpf U Epithel Cells (Auto) (0-5) /lpf Urine Bacteria (Auto) (Negative) Influenza Type A (PCR) Neg for Influ A (Neg) Influenza Type B (PCR) Neg for Influ B (Neg) 12/23/18 12/23/18 12/23/18 Range/Units 19:13 19:13 20:45 WBC (4.8-10.8) K/uL RBC (4.2-5.4) M/uL Hgb (12.0-16.0) g/dL Hct (37-47) % MCV (80-100) fL MCH (25-34) pg MCHC (32-36) g/dL RDW Std Deviation (36.4-46.3) fL RDW Coeff of Jose (11.5-14.5) % Plt Count (130-400) K/uL MPV (7.4-10.4) fL Immature Gran % (Auto) % Neut % (Auto) % Lymph % (Auto) % Bracken % (Auto) % Eos % (Auto) % Baso % (Auto) % Immature Gran # (Auto) (0.00-0.02) K/uL Neut # (Auto) (1.4-6.5) K/uL Lymph # (Auto) (1.2-3.4) K/uL Bracken # (Auto) (0.11-0.59) K/uL Eos # (Auto) (0-0.5) K/uL Baso # (Auto) (0-0.2) K/uL PT (9.0-12.0) Seconds INR (0.9-1.1) APTT (21.0-31.0) Seconds PTT Ratio Sodium 140 (136-145) mmol/L Potassium 3.9 (3.5-5.1) mmol/L Chloride 105 (98-107) mmol/L Carbon Dioxide 30 (21-32) mmol/L Anion Gap 5.0 (3-11) BUN 26 H (7-18) mg/dl Creatinine 0.82 (0.6-1.2) mg/dl Est Cr Clr Drug Dosing 72.3 ml/min Est GFR ( Amer) 87.0 Est GFR (Non-Af Amer) 75.1 BUN/Creatinine Ratio 31.6 H (10-20) Glucose 91 (70-99) mg/dl Lactate 0.9 (0.4-2.0) mmol/L Calcium 9.5 (8.5-10.1) mg/dl Magnesium 2.1 (1.8-2.4) mg/dl Total Bilirubin 0.4 (0.2-1) mg/dl Direct Bilirubin 0.2 (0-0.2) mg/dl AST 21 (15-37) U/L ALT 40 (12-78) U/L Alkaline Phosphatase 127 H (45-117) U/L Troponin I < 0.015 (0-0.045) ng/ml Total Protein 7.0 (6.4-8.2) gm/dl Albumin 3.7 (3.4-5.0) gm/dl Lipase 99 (73-393) U/L TSH 2.070 (0.300-4.500) uIu/ml Urine Color Yellow Urine Appearance Clear (Clear) Urine pH 8.5 H (4.5-7.5) Ur Specific [place] 1.011 (1.000-1.030) Urine Protein Negative (Negative) Urine Glucose (UA) Negative (Negative) Urine Ketones Negative (Negative) Urine Blood Negative (Negative) Urine Nitrite Negative (Negative) Urine Bilirubin Negative (Negative) Urine Urobilinogen Negative (Negative) Ur Leukocyte Esterase 2+ H (Negative) Urine WBC (Auto) 5-10 H (0-5) /hpf Urine RBC (Auto) 0-4 (0-4) /hpf U Hyaline Cast (Auto) 0 (0-5) /lpf U Epithel Cells (Auto) 5-10 H (0-5) /lpf Urine Bacteria (Auto) Negative (Negative) Influenza Type A (PCR) (Neg) Influenza Type B (PCR) (Neg) Imaging Data Attestation: I personally reviewed and interpreted this imaging study as follows: Radiologist's Impression: CT head/brain wo con CT DOSE: 537.48 mGy.cm HISTORY: Mental status change dysarthria, ams, TECHNIQUE: Multiaxial CT images of the head were performed without the use of intravenous contrast. A dose lowering technique was utilized adhering to the principles of ALARA. Comparison: 01/03/2018 Findings: The paranasal sinuses and mastoid air cells are clear. The calvarium and skull base are intact. The ventricles and sulci are within normal limits. There is no mass, hematoma, midline shift, or acute infarct. Impression: No acute intracranial abnormality. The above report was generated using voice recognition software. It may contain grammatical, syntax or spelling errors. Electronically signed by: Tono Jeffery M.D. 12/23/2018 8:14 PM XR chest 1V portable CLINICAL HISTORY: dysarthria pain. Dyspnea. COMPARISON STUDY: 01/03/2018 FINDINGS: The bones soft tissues and hemidiaphragms are normal. The cardiomediastinal silhouette is normal. The lungs are clear. The pulmonary vasculature is normal. IMPRESSION: Negative chest. The above report was generated using voice recognition software. It may contain grammatical, syntax or spelling errors. Electronically signed by: Tono Jeffery M.D. 12/23/2018 7:19 PM ECG Data Attestation: I personally reviewed and interpreted this ECG as follows: Indication: weakness Rate (beats per minute): 63 Rhythm: sinus rhythm Findings: + other (ID/QRS/QTC within normal limits. ); no ST depression and no ST elevation Blood Pressure Blood Pressure Findings: Elevated blood pressure Blood Pressure Disposition: further management by hospitalist [facility] Narrative Vital signs stable. Labs and imaging within normal limits. I discussed the case with Dr. Faulkner - Oncology. He states that Arimidex would not cause her current symptoms. Given the patient's symptoms of intermittent altered mental status and dysarthria, there is concern for TIA versus CVA. Patient will be admitted to the hospitalist service for TIA workup, MRI, and neurology consult. I reviewed the patient's case with Dr. Maryann Pace Hospitalist. He will evaluate the patient for further management. Impression & Plan TIA (transient ischemic attack) Discharge Plan Visit Data Chief Complaint: Allergic Reaction Stated Complaint: REACTION TO MED ED Provider: Zev Cisneros Discharge Problem: TIA (transient ischemic attack) Patient Disposition: Being Evaluated by Hospitalist Forms Stand Alone Forms: My [facility] Referrals Referrals: Kelli Landaverde DO [Primary Care Provider] - The scribe's documentation has been prepared under my direction and personally reviewed by me in its entirety. I confirm that the note above accurately reflects all work, treatment, procedures, and medical decision making performed by me.
[2018-12-23] MEDS ORDERED: cefTRIAXone SODIUM 1000MG/50ML D5W ONE (22:17)
[2018-12-23] MEDS ORDERED: GADOBUTROL 65ML VIAL IV PRN (23:36)
[2018-12-24] MEDS ORDERED: LACTATED RINGER'S 1,000 ML IV ONE (00:16)
[2018-12-24] MEDS ORDERED: PROCHLORPERAZINE 5 MG in SYRINGE 4 ML IV PRN (00:16)
[2018-12-24] MEDS ORDERED: ACETAMINOPHEN 325 MG TAB PO PRN ×2 (00:16→01:04)
[2018-12-24] MEDS ORDERED: NITROGLYCERIN SL 0.4 MG/TAB TAB SL PRN (00:16)
--- NOTE | 2018-12-24 04:23 | History & Physical Report ---
Date of Service December 24, 2018 Assessment & Plan (1) Lethargy: ? Secondary to Arimidex Rx (fatigue, weakness, confusion, drowsiness and malaise along listed side effects) possible UTI, no sepsis Rule out structural intracranial pathology Home benzodiazepine contributory Patient currently awake and at baseline mentation at the ER as per caregiver. hx intellectual impairment hyperlipidemia on statin Rx prediabetes as per records right breast cancer status post surgery radiation, Arimidex currently on hold OBS Medical telemetry Continue to hold Arimidex Urine cultures, IV ceftriaxone MRI, MRA of the brain Check hemoglobin A1c Hold home benzodiazepine for now PT OT eval DVT prophylaxis. Lovenox subcu Full code History of Present Illness Chief Complaint: Worsening fatigue, sleeping more, slurred speech as per records Primary Care Provider: Kelli Landaverde, History obtained from patient, caregiver and records. Limited history from patient secondary to intellectual impairment. Medical history significant for intellectual impairment, hyperlipidemia, prediabetes, right breast cancer status post surgery radiation, ongoing Arimidex Rx. 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 Arimidex Rx started last month as per caregiver. The last week, patient noted to be sleeping more than usual, tired, hard to understand speech possibly slurring. No chest pain, no S OB. Patient's caregivers worried about symptoms being secondary to new Arimidex Rx. Patient's oncologist stopped Arimidex -although uncertain if symptoms secondary to medication. Patient not complaining of dysuria symptoms, no fever, no chills. Patient sent to the ER by PCP for further evaluation. At the ER, patient noted to be more awake possibly from cold ER cubicle as per caregiver. Medical History as above Surgical History : Breast surgery, TL Family History : Diabetes, heart disease Personal/Social history : Non-smoker, no EtOH intake, assisted resident Allergies Allergy/AdvReac Type Severity Reaction Status Date / Time SEASONAL Allergy Sneezing Uncoded 12/23/18 21:59 Home Medications Home Medications Medication Instructions Recorded Confirmed Type Baby Shampoo 1 applic TOPICAL DAILY 12/23/18 12/23/18 History Chondroitin Tab 800 mg PO DAILY 12/23/18 12/23/18 History Robitussin Dm 10 ml PO Q6 PRN 12/23/18 History acetaminophen [Tylenol] 650 mg PO Q4 PRN 12/23/18 12/23/18 History alum-mag hydroxide-simeth 30 ml PO Q4 PRN 12/23/18 12/23/18 History ammonium lactate 1 applic TOPICAL HS 12/23/18 12/23/18 History calcium carbonate-vitamin D3 1 cap PO BID 12/23/18 12/23/18 History [Calcium 600 + D(3)] citalopram 20 mg PO DAILY 12/23/18 12/23/18 History clonazepam 0.25 mg PO DAILY 12/23/18 12/23/18 History fluticasone propionate [Flonase 2 spray INTRANASAL DAILY 12/23/18 12/23/18 History Allergy Relief] glucosamine sulfate [Glucosamine] 1,000 mg PO DAILY 12/23/18 12/23/18 History loperamide [Imodium A-D] 2 mg PO UD PRN 12/23/18 12/23/18 History loratadine [Claritin] 10 mg PO DAILY 12/23/18 12/23/18 History lovastatin 20 mg PO HS 12/23/18 12/23/18 History meloxicam 15 mg PO DAILY 12/23/18 12/23/18 History multivitamin 1 tab PO QAM 12/23/18 12/23/18 History apehbdkr-otgxfyrwfOk-kjvulbyhB 1 applic TOPICAL BID PRN 12/23/18 12/23/18 History [Neosporin (csy-dvb-zoppt)] oxybutynin chloride 30 mg PO DAILY 12/23/18 12/23/18 History polyethylene glycol 3350 [Miralax] 17 g PO BID 12/23/18 12/23/18 History sodium chloride [Saline Nasal] 1 spray INTRANASAL DAILY 12/23/18 12/23/18 History Past Med/Surg History Medical History Allergic rhinitis (Acute) Cervical high risk HPV (human papillomavirus) test positive (Acute) Dyslipidemia (Acute) Menopause (Acute) Moderate intellectual disabilities (Acute) Family History Father , of [place] age 40 No problems noted. Sister Diabetes 1.5, managed as type 1 Social History Preferred Language: Mongolian Communication Ability: Impaired Beliefs That Will Affect Care: None Current Living Situation Comment: Resident of [facility] assisted. Feels Safe at Home: Yes Safety Concerns: Feels Safe At This Time Smoking Status: Never smoker Do You Dip or Chew Tobacco: No Second Hand Exposure: No Hx Alcohol Use: No Hx Substance Use: No Physical Exam Vital Signs (Past 24 Hours): Last Vital Signs Temp 36.4 C L 12/24/18 01:00 Pulse 62 12/24/18 01:00 Resp 16 12/24/18 01:00 BP 147/83 H 12/24/18 01:00 Pulse Ox 99 12/24/18 01:00 Results & Data Laboratory Results Laboratory Results WBC 5.18 K/uL (4.8-10.8) 12/23/18 19:13 RBC 4.12 M/uL (4.2-5.4) L 12/23/18 19:13 Hgb 12.7 g/dL (12.0-16.0) 12/23/18 19:13 Hct 36.6 % (37-47) L 12/23/18 19:13 MCV 88.8 fL (80-100) 12/23/18 19:13 MCH 30.8 pg (25-34) 12/23/18 19:13 MCHC 34.7 g/dL (32-36) 12/23/18 19:13 RDW Std Deviation 43.2 fL (36.4-46.3) 12/23/18 19:13 RDW Coeff of Jose 13.3 % (11.5-14.5) 12/23/18 19:13 Plt Count 198 K/uL (130-400) 12/23/18 19:13 MPV 9.6 fL (7.4-10.4) 12/23/18 19:13 Immature Gran % (Auto) 0.2 % 12/23/18 19:13 Neut % (Auto) 47.4 % 12/23/18 19:13 Lymph % (Auto) 38.8 % 12/23/18 19:13 [place] % (Auto) 9.7 % 12/23/18 19:13 Eos % (Auto) 3.5 % 12/23/18 19:13 Baso % (Auto) 0.4 % 12/23/18 19:13 Immature Gran # (Auto) 0.01 K/uL (0.00-0.02) 04/17/19 19:13 Neut # (Auto) 2.46 K/uL (1.4-6.5) 12/23/18 19:13 Lymph # (Auto) 2.01 K/uL (1.2-3.4) 12/23/18 19:13 [place] # (Auto) 0.50 K/uL (0.11-0.59) 12/23/18 19:13 Eos # (Auto) 0.18 K/uL (0-0.5) 12/23/18 19:13 Baso # (Auto) 0.02 K/uL (0-0.2) 12/23/18 19:13 PT 10.6 Seconds (9.0-12.0) 12/23/18 19:13 INR 1.0 (0.9-1.1) 12/23/18 19:13 APTT 23.8 Seconds (21.0-31.0) 12/23/18 19:13 PTT Ratio 0.9 12/23/18 19:13 Sodium 140 mmol/L (136-145) 12/23/18 19:13 Potassium 3.9 mmol/L (3.5-5.1) 12/23/18 19:13 Chloride 105 mmol/L (98-107) 12/23/18 19:13 Carbon Dioxide 30 mmol/L (21-32) 12/23/18 19:13 Anion Gap 5.0 (3-11) 12/23/18 19:13 BUN 26 mg/dl (7-18) H 12/23/18 19:13 Creatinine 0.82 mg/dl (0.6-1.2) 12/23/18 19:13 Est Cr Clr Drug Dosing 72.3 ml/min 12/23/18 19:13 Est GFR ( Amer) 87.0 12/23/18 19:13 Est GFR (Non-Af Amer) 75.1 12/23/18 19:13 BUN/Creatinine Ratio 31.6 (10-20) H 12/23/18 19:13 Glucose 91 mg/dl (70-99) 12/23/18 19:13 Lactate 0.9 mmol/L (0.4-2.0) 12/23/18 19:13 Calcium 9.5 mg/dl (8.5-10.1) 04/17/19 19:13 Magnesium 2.1 mg/dl (1.8-2.4) 12/23/18 19:13 Total Bilirubin 0.4 mg/dl (0.2-1) 12/23/18 19:13 Direct Bilirubin 0.2 mg/dl (0-0.2) 12/23/18 19:13 AST 21 U/L (15-37) 12/23/18 19:13 ALT 40 U/L (12-78) 12/23/18 19:13 Alkaline Phosphatase 127 U/L (45-117) H 12/23/18 19:13 Troponin I < 0.015 ng/ml (0-0.045) 12/23/18 19:13 Total Protein 7.0 gm/dl (6.4-8.2) 12/23/18 19:13 Albumin 3.7 gm/dl (3.4-5.0) 12/23/18 19:13 Lipase 99 U/L (73-393) 12/23/18 19:13 TSH 2.070 uIu/ml (0.300-4.500) 12/23/18 19:13 Urine Color Yellow 12/23/18 20:45 Urine Appearance Clear (Clear) 12/23/18 20:45 Urine pH 8.5 (4.5-7.5) H 12/23/18 20:45 Ur Specific [place] 1.011 (1.000-1.030) 12/23/18 20:45 Urine Protein Negative (Negative) 12/23/18 20:45 Urine Glucose (UA) Negative (Negative) 12/23/18 20:45 Urine Ketones Negative (Negative) 12/23/18 20:45 Urine Blood Negative (Negative) 12/23/18 20:45 Urine Nitrite Negative (Negative) 12/23/18 20:45 Urine Bilirubin Negative (Negative) 12/23/18 20:45 Urine Urobilinogen Negative (Negative) 12/23/18 20:45 Ur Leukocyte Esterase 2+ (Negative) H 12/23/18 20:45 Urine WBC (Auto) 5-10 /hpf (0-5) H 12/23/18 20:45 Urine RBC (Auto) 0-4 /hpf (0-4) 12/23/18 20:45 U Hyaline Cast (Auto) 0 /lpf (0-5) 12/23/18 20:45 U Epithel Cells (Auto) 5-10 /lpf (0-5) H 12/23/18 20:45 Urine Bacteria (Auto) Negative (Negative) 12/23/18 20:45 Influenza Type A (PCR) Neg for Influ A (Neg) 12/23/18 19:10 Influenza Type B (PCR) Neg for Influ B (Neg) 12/23/18 19:10 Diagnostic Findings Chest x-ray: Negative CT head: Negative
[2018-12-24 04:32] LABS: Basophils # (auto) 0.02 K/uL (0-0.2); Basophils % (auto) 0.4 %; Eosinophils # (auto) 0.19 K/uL (0-0.5); Hemoglobin 12.2 g/dL (12.0-16.0); Immature Granulocytes # (auto) 0.01 K/uL (0.00-0.02); Immature Granulocytes % (auto) 0.2 %; Lymphocytes % (auto) 33.3 %; Mean Corpuscular Hgb Conc 34.9 g/dL (32-36); Mean Corpuscular Volume 87.7 fL (80-100); Monocytes # (auto) 0.54 K/uL (0.11-0.59); Monocytes % (auto) 11.2 %; Neutrophils # (auto) 2.45 K/uL (1.4-6.5); Neutrophils % (auto) 50.9 %; Platelet Count 169 K/uL (130-400); RDW Coefficient of Variation 13.3 % (11.5-14.5); RDW Standard Deviation 42.9 fL (36.4-46.3); Red Blood Count 3.99 M/uL (4.2-5.4); White Blood Count 4.81 K/uL (4.8-10.8)
--- NOTE | 2018-12-24 07:13 | Magnetic Resonance Report ---
MRI OF THE BRAIN COMBO CLINICAL HISTORY: Slurred speech. COMPARISON STUDY: CT of the brain dated 12/23/2018. TECHNIQUE: MRI of the brain was performed utilizing various T1 and T2-weighted sequences in the axial , sagittal, and coronal planes. Contrast-enhanced sequences were acquired following the administratio n of 9.5 cc of Gadavist. The examination is compromised by motion artifact. Several sequences had to be repeated. FINDINGS: Brain parenchyma: There is mild age-related involutional change. There is no hemorrhage or mass effec t. There is no restricted diffusion to suggest acute ischemia. No enhancing mass lesion is identified on the postcontrast images. Louie-white matter differentiation is preserved. No extra-axial fluid col lection is seen. The cerebellar tonsils are normal in configuration. Ventricles, sulci, and cisterns: Normal in configuration. Pituitary and sella: Unremarkable. Intracranial vasculature: Normal flow voids are maintained at the skull base. Orbits: The bony orbits are grossly intact. Orbital contents are normal in appearance. Sinuses and mastoids: Clear. Calvarium: Unremarkable. Cervical cord: Partially visualized cervical spinal cord is normal in morphology and signal intensity . IMPRESSION: No acute intracranial abnormality noting a motion compromised examination. Electronically signed by: Gregg Ponce M.D. 12/24/2018 7:12 AM
--- NOTE | 2018-12-24 07:19 | Magnetic Resonance Report ---
Brain MRA HISTORY: slurred speech TECHNIQUE: 3-D [id number] MRA of the brain was performed without contrast. COMPARISON STUDY: None. FINDINGS: Motion artifact. Visualized intracranial internal carotid arteries, distal vertebral arteri es, and basilar artery are widely patent. There is no significant stenosis, occlusion, or aneurysm se en within the bilateral ACAs, MCAs, or advertising project manager. IMPRESSION: Motion artifact. No definite stenosis, occlusion, or aneurysm within the [place]. Electronically signed by: Jason Goff M.D. 12/24/2018 7:18 AM
[2018-12-24] MEDS ORDERED: INFLUENZA ADMINISTRATION CHARGE ONE (08:00)
[2018-12-24] MEDS ORDERED: INFLUENZA VIRUS QUAD VACCINE 0.5 ML SYR IM ONE (08:00)
[2018-12-24] MEDS: ENOXAPARIN INJ 40 MG/0.4 ML SYR SQ SCH (08:20)
[2018-12-24] MEDS: CITALOPRAM 20 MG TAB PO SCH (08:21)
[2018-12-24] MEDS: POLYETHYLENE (MIRALAX) 17 GM PACK PO SCH ×2 (08:21→21:01)
[2018-12-24] MEDS: LORATADINE 10 MG TAB PO SCH (08:21)
[2018-12-24] MEDS: MULTIVITAMIN TAB PO SCH (08:21)
[2018-12-24 08:23] LABS: Estimated Average Glucose 120 mg/dl; Hemoglobin A1C 5.8 % (4.5-5.6)
--- NOTE | 2018-12-24 16:45 | Hospitalist Progress Note ---
Date of Service December 24, 2018 Assessment & Plan (1) Lethargy: Likely secondary to Arimidex Rx (fatigue, weakness, confusion, drowsiness and malaise along listed side effects) Rule out structural intracranial pathology: MRI of the brain, MRA of the head and CT of the head unremarkable Home benzodiazepine contributory-benzodiazepines are on hold Clinically a lot better and does not have any lethargy and/or dysarthria Will observe Possible UTI, no sepsis Started on intravenous Rocephin Urine is showing pinpoint growth and will be reintubated Patient denies any urinary symptoms H/O intellectual impairment No acute deterioration Other medical conditions remained stable as below Hyperlipidemia on statin Rx Prediabetes as per records Right breast cancer status post surgery radiation, Arimidex currently on hold PT OT eval DVT prophylaxis. Lovenox subcu Full code Likely be discharged tomorrow Subjective 12/23 The patient was seen and examined in medical floor She is a 63-year-old female with significant past medical history including intellectual impairment, prediabetes, hyperlipidemia, and history of right breast cancer status post surgery and radiation and getting Arimidex treatment was admitted with worsening fatigue and questionable slurred speech Suspected to have UTI Has been feeling a lot better today and denies any complaints He wants to go home Review of Systems Review of Systems: All systems reviewed and are unremarkable except as noted below Neurologic: Alert, awake and oriented x2. Generally weak but no focal neuro deficit Psychiatric: + confusion (Pleasantly confused) Physical Exam Physical Exam: No apparent distress at rest and sitting on a chair out of bed Constitutional: WD/WN, vitals as above well developed and well nourished; no acute distress Eyes: PERRL, conjunctivae normal, anicteric sclerae ENMT: external ear and nose normal, oropharynx normal Neck: trachea midline, no thyromegaly Respiratory: normal respiratory effort Auscultation: no crackles and no wheezes Cardiovascular: RRR, no murmur, no edema Gastrointestinal (Abdomen): normal bowel sounds, soft, nontender, no hepatosplenomegaly Neurologic: Alert, awake and oriented x2 Results & Data Vital Signs (Past 12 Hours) Vital Signs Temp Pulse Pulse Resp BP Pulse Ox 12/24/18 11:31 36.9 C 63 16 133/68 99 12/24/18 07:24 62 12/24/18 07:20 36.8 C 60 16 144/76 H 99 Laboratory Results Short CBC 12/23/18 12/24/18 Range/Units 19:13 04:15 WBC 5.18 4.81 (4.8-10.8) K/uL Hgb 12.7 12.2 (12.0-16.0) g/dL Hct 36.6 L 35.0 L (37-47) % Plt Count 198 169 (130-400) K/uL BMP 12/23/18 19:13 Sodium 140 Potassium 3.9 Chloride 105 Carbon Dioxide 30 BUN 26 H Creatinine 0.82 Glucose 91 Calcium 9.5 Cardiac Enzymes 12/23/18 Range/Units 19:13 Troponin I < 0.015 (0-0.045) ng/ml Liver Function 12/23/18 Range/Units 19:13 Total Bilirubin 0.4 (0.2-1) mg/dl Direct Bilirubin 0.2 (0-0.2) mg/dl AST 21 (15-37) U/L ALT 40 (12-78) U/L Alkaline Phosphatase 127 H (45-117) U/L Albumin 3.7 (3.4-5.0) gm/dl Urine 12/23/18 Range/Units 20:45 Urine Color Yellow Urine Appearance Clear (Clear) Urine pH 8.5 H (4.5-7.5) Ur Specific [place] 1.011 (1.000-1.030) Urine Protein Negative (Negative) Urine Glucose (UA) Negative (Negative) Medications Administered Current Inpatient Medications Acetaminophen (Tylenol) 650 mg PO Q4H PRN PRN Reason: Pain or Fever Stop: 01/23/19 00:15 Acetaminophen (Tylenol) 650 mg PO Q4 PRN PRN Reason: Pain Stop: 01/23/19 01:03 Citalopram Hydrobromide (Celexa) 20 mg PO DAILY [facility] Stop: 01/23/19 08:59 Last Admin: 12/24/18 08:21 Dose: 20 mg Documented by: Enoxaparin Sodium (Lovenox) 40 mg SQ QAM [facility] Stop: 01/23/19 08:59 Last Admin: 12/24/18 08:20 Dose: 40 mg Documented by: Ceftriaxone Sodium 1,000 mg/ (Dextrose) 50 mls @ 100 mls/hr IV Q24H [facility]; Protocol Stop: 01/01/19 22:29 Prochlorperazine 5 mg/ Syringe 5 mls @ 5 mls/min IV Q6H PRN PRN Reason: Nausea And Vomiting Stop: 01/23/19 00:15 Loratadine (Claritin) 10 mg PO DAILY [facility] Stop: 01/23/19 08:59 Last Admin: 12/24/18 08:21 Dose: 10 mg Documented by: Lovastatin (Mevacor) 20 mg PO HS [facility] Stop: 01/23/19 20:59 Multivitamins (Multivitamin Tab) 1 tab PO QAM [facility] Stop: 01/23/19 08:59 Last Admin: 12/24/18 08:21 Dose: 1 tab Documented by: Nitroglycerin (Nitrostat) 0.4 mg SL UD PRN PRN Reason: Chest Pain Stop: 01/23/19 00:15 Polyethylene Glycol (Miralax Powder Packet) 17 gm PO BID [facility] Stop: 01/23/19 08:59 Last Admin: 12/24/18 08:21 Dose: 17 gm Documented by:
[2018-12-24] MEDS ORDERED: LOVASTATIN 20 MG TAB PO SCH (21:00)
[2018-12-24] MEDS ORDERED: cefTRIAXone SODIUM 1,000 MG in DEXTROSE 5% 50 ML IV SCH (22:00)
[2018-12-25 06:36] LABS: Basophils # (auto) 0.02 K/uL (0-0.2); Basophils % (auto) 0.4 %; Eosinophils # (auto) 0.21 K/uL (0-0.5); Eosinophils % (auto) 4.1 %; Hematocrit (blood only) 36.9 % (37-47); Hemoglobin 12.7 g/dL (12.0-16.0); Lymphocytes # (auto) 1.78 K/uL (1.2-3.4); Lymphocytes % (auto) 34.8 %; Mean Corpuscular Hgb Conc 34.4 g/dL (32-36); Mean Corpuscular Volume 88.5 fL (80-100); Mean Platelet Volume 9.5 fL (7.4-10.4); Monocytes # (auto) 0.49 K/uL (0.11-0.59); Monocytes % (auto) 9.6 %; Neutrophils # (auto) 2.61 K/uL (1.4-6.5); Neutrophils % (auto) 51.1 %; Platelet Count 186 K/uL (130-400); RDW Coefficient of Variation 13.5 % (11.5-14.5); RDW Standard Deviation 43.8 fL (36.4-46.3); Red Blood Count 4.17 M/uL (4.2-5.4); White Blood Count 5.11 K/uL (4.8-10.8)
[2018-12-25 07:01] LABS: BUN Creatinine Ratio 30.3 (10-20); Calcium 9.1 mg/dl (8.5-10.1); Creatinine Clr Calc Pharmacy 79.6 ml/min; Est GFR (African American) 98.5; Magnesium 2.2 mg/dl (1.8-2.4); Potassium 3.8 mmol/L (3.5-5.1)
[2018-12-25] MEDS: CITALOPRAM 20 MG TAB PO SCH (08:24)
[2018-12-25] MEDS: LORATADINE 10 MG TAB PO SCH (08:24)
[2018-12-25] MEDS: MULTIVITAMIN TAB PO SCH (08:24)
[2018-12-25] MEDS: POLYETHYLENE (MIRALAX) 17 GM PACK PO SCH (08:24)
[2018-12-25] MEDS: ENOXAPARIN INJ 40 MG/0.4 ML SYR SQ SCH (08:25)
--- NOTE | 2018-12-25 11:42 | Hospitalist Progress Note ---
Date of Service December 25, 2018 Assessment & Plan (1) Lethargy: Likely secondary to Arimidex Rx (fatigue, weakness, confusion, drowsiness and malaise along listed side effects) Rule out structural intracranial pathology: MRI of the brain, MRA of the head and CT of the head unremarkable Home benzodiazepine contributory-benzodiazepines are on hold Clinically a lot better and does not have any lethargy and/or dysarthria Condition remains stable without any significant symptoms Possible UTI, no sepsis Started on intravenous Rocephin Urine is showing pinpoint growth and will be reintubated Patient denies any urinary symptoms Urine culture growing multiple organisms We will continue antibiotic for 3 days H/O intellectual impairment No acute deterioration Other medical conditions remained stable as below Hyperlipidemia on statin Rx Prediabetes as per records Right breast cancer status post surgery radiation, Arimidex currently on hold We will hold Arimidex on discharge PT OT eval DVT prophylaxis. Lovenox subcu Full code Likely be discharged to [facility] this afternoon Subjective 12/23 The patient was seen and examined in medical floor She is a 63-year-old female with significant past medical history including intellectual impairment, prediabetes, hyperlipidemia, and history of right breast cancer status post surgery and radiation and getting Arimidex treatment was admitted with worsening fatigue and questionable slurred speech Suspected to have UTI Has been feeling a lot better today and denies any complaints He wants to go home 12/25 She remains stable as of this morning She has been sitting on a chair without any symptoms He definitely wants to go back to ski today Review of Systems Review of Systems: Systems reviewed and are unremarkable except as noted below Psychiatric: + confusion (Pleasantly confused) Physical Exam Physical Exam: Sitting on a chair without any symptoms Constitutional: WD/WN, vitals as above well developed and well nourished; no acute distress Eyes: PERRL, conjunctivae normal, anicteric sclerae ENMT: external ear and nose normal, oropharynx normal Neck: trachea midline, no thyromegaly Respiratory: normal respiratory effort Auscultation: no crackles and no wheezes Cardiovascular: RRR, no murmur, no edema Gastrointestinal (Abdomen): normal bowel sounds, soft, nontender, no hepatosplenomegaly Musculoskeletal: no cyanosis or clubbing, extremities motor strength 5/5 Neurologic: Alert and awake. Pleasantly confused at times. No focal motor deficit appreciated Results & Data Vital Signs (Past 12 Hours) Vital Signs Temp Pulse Pulse Resp BP Pulse Ox Pulse Ox 12/25/18 09:08 52 L 12/25/18 07:21 36.9 C 61 20 137/69 99 12/25/18 04:16 36.6 C 63 18 140/75 100 12/25/18 00:16 99 12/24/18 23:55 61 Laboratory Results Short CBC 12/25/18 Range/Units 05:49 WBC 5.11 (4.8-10.8) K/uL Hgb 12.7 (12.0-16.0) g/dL Hct 36.9 L (37-47) % Plt Count 186 (130-400) K/uL BMP 12/25/18 05:49 Sodium 141 Potassium 3.8 Chloride 109 H Carbon Dioxide 26 BUN 22 H Creatinine 0.74 Glucose 95 Calcium 9.1 Medications Administered Current Inpatient Medications Acetaminophen (Tylenol) 650 mg PO Q4H PRN PRN Reason: Pain or Fever Stop: 01/23/19 00:15 Acetaminophen (Tylenol) 650 mg PO Q4 PRN PRN Reason: Pain Stop: 01/23/19 01:03 Citalopram Hydrobromide (Celexa) 20 mg PO DAILY [facility] Stop: 01/23/19 08:59 Last Admin: 12/25/18 08:24 Dose: 20 mg Documented by: Enoxaparin Sodium (Lovenox) 40 mg SQ QAM [facility] Stop: 01/23/19 08:59 Last Admin: 12/25/18 08:25 Dose: 40 mg Documented by: Ceftriaxone Sodium 1,000 mg/ (Dextrose) 50 mls @ 100 mls/hr IV Q24H [facility]; Protocol Stop: 01/01/19 22:29 Last Infusion: 12/24/18 22:43 Dose: Infused Documented by: Prochlorperazine 5 mg/ Syringe 5 mls @ 5 mls/min IV Q6H PRN PRN Reason: Nausea And Vomiting Stop: 01/23/19 00:15 Loratadine (Claritin) 10 mg PO DAILY [facility] Stop: 01/23/19 08:59 Last Admin: 12/25/18 08:24 Dose: 10 mg Documented by: Lovastatin (Mevacor) 20 mg PO HS [facility] Stop: 01/23/19 20:59 Last Admin: 12/24/18 21:01 Dose: 20 mg Documented by: Multivitamins (Multivitamin Tab) 1 tab PO QAM [facility] Stop: 01/23/19 08:59 Last Admin: 12/25/18 08:24 Dose: 1 tab Documented by: Nitroglycerin (Nitrostat) 0.4 mg SL UD PRN PRN Reason: Chest Pain Stop: 01/23/19 00:15 Polyethylene Glycol (Miralax Powder Packet) 17 gm PO BID [facility] Stop: 01/23/19 08:59 Last Admin: 12/25/18 08:24 Dose: 17 gm Documented by:
[2018-12-25 11:57] VITALS: BP 132/78; PULSE 74; TEMP 97.7; O2SAT 100
--- NOTE | 2018-12-25 18:35 | Discharge Summary ---
Date of Service December 25, 2018 Admission HPI Per Admitting Provider History obtained from patient, caregiver and records. Limited history from patient secondary to intellectual impairment. Medical history significant for intellectual impairment, hyperlipidemia, prediabetes, right breast cancer status post surgery radiation, ongoing Arimidex Rx. 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 Arimidex Rx started last month as per caregiver. The last week, patient noted to be sleeping more than usual, tired, hard to understand speech possibly slurring. No chest pain, no S OB. Patient's caregivers worried about symptoms being secondary to new Arimidex Rx. Patient's oncologist stopped Arimidex -although uncertain if symptoms secondary to medication. Patient not complaining of dysuria symptoms, no fever, no chills. Patient sent to the ER by PCP for further evaluation. At the ER, patient noted to be more awake possibly from cold ER cubicle as per caregiver. Medical History as above Surgical History : Breast surgery, TL Family History : Diabetes, heart disease Personal/Social history : Non-smoker, no EtOH intake, custodial resident Principal Diagnosis Generalized weakness-improved and no cause found- UTI ruled out Discharge Exam Constitutional WD/WN, vitals as above well developed and well nourished; no acute distress Eyes PERRL, conjunctivae normal, anicteric sclerae ENMT external ear and nose normal, oropharynx normal Neck trachea midline, no thyromegaly Respiratory normal respiratory effort Auscultation: no crackles and no wheezes Cardiovascular RRR, no murmur, no edema Gastrointestinal (Abdomen) normal bowel sounds, soft, nontender, no hepatosplenomegaly Musculoskeletal no cyanosis or clubbing, extremities motor strength 5/5 Discharge Data Allergies Allergy/AdvReac Type Severity Reaction Status Date / Time SEASONAL Allergy Sneezing Uncoded 12/23/18 21:59 Consultations 12/23/18 21:15 ED Decision to Admit Stat Ordered Studies 12/23/18 19:02 CT head/brain wo con Stat 12/23/18 21:52 MR angio head wo con Urgent 12/23/18 21:54 MR brain wo/w con Urgent Hospital Course (1) Lethargy: Likely secondary to Arimidex Rx (fatigue, weakness, confusion, drowsiness and malaise along listed side effects) Rule out structural intracranial pathology: MRI of the brain, MRA of the head and CT of the head unremarkable Home benzodiazepine contributory-benzodiazepines are on hold Clinically a lot better and does not have any lethargy and/or dysarthria Condition remains stable without any significant symptoms Possible UTI, no sepsis Started on intravenous Rocephin Urine is showing pinpoint growth and will be reintubated Patient denies any urinary symptoms Urine culture growing multiple organisms We will continue antibiotic for 3 days H/O intellectual impairment No acute deterioration Other medical conditions remained stable as below Hyperlipidemia on statin Rx Prediabetes as per records Right breast cancer status post surgery radiation, Arimidex currently on hold We will hold Arimidex on discharge PT OT eval DVT prophylaxis. Lovenox subcu Full code Likely be discharged to [facility] this afternoon Total Time Total Time Spent Total Time Spent (In Minutes): 35 minutes Total Time Includes: Examination of the Patient, Discharge Planning, Medication Reconciliation and Communication With Other Providers Discharge Plan Discharge Items Patient Disposition: Personal Retirement Reason For Visit: CONFUSION Discharge Diagnosis: Generalized weakness-improved and no cause found- UTI ruled out Discharge Goals: Decrease discomfort, Improve function and Increase independence Activity: Resume your previous activity Non-emergency contact: Primary Care Provider Call non-emergency contact if: you have any medication questions and your symptoms worsen Follow-up/Referrals: Kelli Landaverde DO [Primary Care Provider] - 12/31/18 12:55 pm Diet: Heart Healthy Addtl Provider Instructions: Please take precaution to avoid falls Prescriptions: Continued multivitamin Tablet 1 tab PO QAM RF: 0 acetaminophen [Tylenol] 325 mg Tablet 650 mg PO Q4 PRN (Reason: Pain) RF: 0 oxybutynin chloride 15 mg Tablet Extended Release 24hr 30 mg PO DAILY RF: 0 ammonium lactate 12 % Lotion 1 applic TOPICAL HS RF: 0 polyethylene glycol 3350 [Miralax] 17 gram Powder In Packet 17 g PO BID RF: 0 meloxicam 15 mg Tablet 15 mg PO DAILY RF: 0 clonazepam 0.5 mg Tablet 0.25 mg PO DAILY RF: 0 loperamide [Imodium A-D] 2 mg Tablet 2 mg PO UD PRN (Reason: Diarrhea) RF: 0 glucosamine sulfate [Glucosamine] 500 mg Tablet 1,000 mg PO DAILY RF: 0 citalopram 20 mg Tablet 20 mg PO DAILY RF: 0 alum-mag hydroxide-simeth 200-200-20 mg/5 mL Suspension 30 ml PO Q4 PRN (Reason: Gi Upset) RF: 0 lovastatin 20 mg Tablet 20 mg PO HS RF: 0 fluticasone propionate [Flonase Allergy Relief] 50 mcg/actuation [place],Suspension 2 spray INTRANASAL DAILY RF: 0 loratadine [Claritin] 10 mg Tablet 10 mg PO DAILY RF: 0 sodium chloride [Saline Nasal] 0.65 % Aerosol,[place] 1 spray INTRANASAL DAILY RF: 0 Calcium 600 + D(3) 600 mg calcium- 200 unit Capsule 1 cap PO BID RF: 0 Neosporin ([id number]) 3.5-400-5,000 [id number] Ointment In Packet 1 applic TOPICAL BID PRN (Reason: cuts/scrapes) RF: 0 Baby Shampoo 1 applic topical DAILY RF: 0 Chondroitin Tab 800 mg PO DAILY RF: 0 Robitussin Dm 10 ml PO Q6 PRN (Reason: Cough) RF: 0 Stand-Alone Forms: [facility] Discharge Orders: Discharge Order (Routine); Ordered 12/25/18 Ordered By: Светлана Hanson Admission Data Admit Date/Time: 12/24/18 00:14 Attending Provider: Светлана Hanson Admit Provider: Barrington Wolf Primary Care Provider: Kelli Landaverde Other Providers: Barrington Wolf Service: Telemetry Medical Other Interventions: Discharge Summary Assessment (RN) Last Done: 12/25/18 14:47 DC Date/Time DO NOT enter until pt leaves facility: 12/25/18 16:55
== END 2018-12-25 16:55 | disposition home or self-care (01) ==
LOC: ED 18:01 → 2N 18:01 → SUATTDRO 12-24 00:14 → 2N 12-24 00:45

== ENCOUNTER 2024-06-07 20:21 | Observation (INO) ==
--- NOTE | 2024-06-07 20:28 | Emergency Department Note ---
Impression & Plan Hyponatremia, CHI (closed head injury), Facial laceration, Fall ED Provider Note NAME: CARL NIELSON AGE: 69 SEX: F : 1955 ARRIVES VIA: Ambulance INFORMANT: Patient, patient aide, EMS report, nursing report ED PROVIDER(S): Jeremie Caicedo MD CHIEF COMPLAINT: Fall, facial laceration, confusion, vomiting MEDICAL DECISION MAKING: Patient presents due to concern for fall and head strike. Given the reported worsening confusion compared to prior IV was established and blood work was obtained along with CT head cervical spine and face. Screening x-rays were performed of the pelvis and chest. Pelvis and chest x-rays do not show evidence of fracture no evidence of pneumothorax.Blood work shows a normal white count H&H and platelet count. Kidney function unremarkable with hyponatremia which is new at 128. Blood sugar 124. Troponin negative. Given the patient's hyponatremia and history of intellectual disability I did speak the on-call hospital service Dr. Paula and patient was admitted to the medicine service. I did speak with the aid who had worked with the patient prior and states that she may be a bit sleepy given the hour but seems to be at her baseline. Discussion w/ other healthcare providers: Dr. Paula inpatient medicine service Procedures: Laceration repair performed by Dr. Caicedo Location: Lateral to the left eyebrow Total length: 0.5 cm Complexity: Simple Verbal consent was obtained after the risks and benefits were explained, including but not limited to bleeding, scarring, infection, pain, and bone/joint/nerve damage. At this time, the risks of the procedure are less than the risks of NOT performing the procedure. A time out was taken and the correct patient and site identified. The area was cleansed with soap and water. The skin was re-prepped with betadine and a sterile field set. The wound was explored for foreign bodies and none found. Examination revealed no injury to deep structures such as tendons, bone, or significant blood vessels. Debridement was not performed. The wound edges were approximated using Steri-Strips and Dermabond.Hemostasis and excellent approximation was achieved. Antibacterial ointment and a sterile dressing applied. Detailed wound care instructions and signs and symptoms of infection reviewed with the inpatient provider. No complications and the patient tolerated the procedure well. Prior /Outside records reviewed: I reviewed part of a wellness visit from March 29, [address] Cano. Patient was there to establish care. Patient with a known history of intellectual disability and lives at [facility] companied by an aide previously followed at [facility] with a known history of anxiety GERD hypertension glaucoma IBS HDL history of breast cancer status postlumpectomy and hearing deficit with hearing aids.] Differential diagnosis: Fracture, dislocation, contusion, strain, sprain, ICH, hemothorax, intra- abdominal injury, anemia among other causes were considered. Diagnostics, as interpreted by me: ECG: Normal sinus rhythm, rate of 74, normal intervals, normal axis no ST elevations. Cardiac monitoring: An order was placed for continuous cardiac monitoring. The monitor shows a rate of 72 with sinus rhythm. Patient was placed on pulse oximetry Medical decision rules: Barton head CT rule, Nexus rule Imaging studies: I informally interpreted the patient's chest x-ray does not show obvious pneumonia or pneumothorax with formal report to follow. HPI: [facility] presents [facility] due to concern for fall and worsening confusion from her baseline. The patient reportedly did have 1 episode of vomiting prior to arrival. Patient also did suffer a left supraorbital laceration. Per EMS report this was an unwitnessed fall but when they went to the bathroom the patient was awake and alert no reported seizure- like activity. Unsure as to the patient's baseline confusion which the [facility] reports she does have. Patient does have a history of intellectual disability per review of her notes. The patient currently denies any head neck chest back or abdominal pain. Patient does not complain of any abdominal pain or back pain. Patient does report that she was getting up off the toilet and "whoosh" she fell off the toilet." Patient denies any back pain. PAST MEDICAL HISTORY: See Below PAST SURGICAL HISTORY: See Below SOCIAL HISTORY: See Below HOME MEDICATIONS: See Below ALLERGIES: See Below VITALS: See Below PHYSICAL EXAMINATION: GENERAL: NAD, non-toxic. C-collar in place. EYE EXAM: Normal conjunctiva. PERRL, no anisocoria and EOM's grossly intact w/o pain. Left eye exotropia. Head: Laceration currently hemostatic about half a centimeter in length lateral to the left eyebrow with associated soft tissue swelling. OROPHARYNX: Moist mucus membranes, edentulous. NECK: Trachea midline, no stridor. Supple, no nuchal rigidity, no adenopathy, non-tender. No signs of meningismus. FROM of the neck with good chin to chest and neck extension. LUNGS: Clear to auscultation. Normal chest wall mechanics. HEART: NSR, no MRG. ABDOMEN: Abdomen soft, non-tender, no masses, no rebound or guarding. BACK: No CVA TTP. No midline lumbar or thoracic TTP. SKIN: No rashes and no bruising. UPPER EXTREMITIES: Upper extremities are grossly normal. No TTP or deformity. LOWER EXTREMITIES: Grossly normal, no edema. No TTP or deformity. NEURO EXAM: Awake and alert follows basic commands, limited vocabulary. Moves all 4 extremities. Past Med/Surg History Problem List (Updated 06/08/24 @ 00:36 by Jeremie Caicedo MD) Fall (Acute) Facial laceration (Acute) CHI (closed head injury) (Acute) Hyponatremia (Acute) Right knee DJD Osteoarthritis of left knee Seasonal allergic rhinitis Moderate intellectual disabilities Hyperlipidemia Anxiety GERD (gastroesophageal reflux disease) Hypertension Glaucoma Osteoarthritis of right ankle DJD (degenerative joint disease) of knee Medical History Intraductal carcinoma of right breast Intertrigo hx OAB (overactive bladder) Seasonal allergies Constipation Post-traumatic osteoarthritis of knees, bilateral Hx of breast cancer Benign paroxysmal vertigo Unilateral primary osteoarthritis, left knee Age-related nuclear cataract of both eyes Astigmatism Exotropia Myopia Blepharitis Migraine Adjustment disorder with anxiety Recurrent depressive disorder Allergic rhinitis Cervical high risk HPV (human papillomavirus) test positive Surgical History Surgical history unknown Family History Father , of [place] age 40 No problems noted. 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 Consultant Required: No Beliefs That Will Affect Care: None marital status: Single Current Living Situation: Personal Care Facility Current Living Situation Comment: [facility] current occupational status: disabled Feels Safe at Home: Yes Childhood Exposure to Second-Hand Smoke: No Diet: low salt and regular caffeine: Yes Dental Care, Regularly: Yes Physical Activity Frequency: Daily Seatbelt Use: always Sunscreen Use: Yes Assistive Devices: Glasses Allergies Allergies Allergy/AdvReac Type Severity Reaction Status Date / Time No Known Allergies Allergy Verified 03/29/24 10:39 Home Meds Home Medications Medication Instructions Recorded Confirmed aluminum-mag hydroxide-simethicone 30 ml PO Q4 PRN Gi Upset 12/23/18 06/07/24 200 mg-200 mg-20 mg/5 mL oral susp fluticasone propionate 50 2 spray intranasal QAM 12/23/18 06/07/24 mcg/actuation nasal spray,suspension (Flonase Allergy Relief) lovastatin 20 mg tablet 20 mg PO QAM 12/23/18 06/07/24 multivitamin 1 tab PO QAM 12/23/18 06/07/24 dextromethorphan-guaifenesin 30 1 tab PO Q12H PRN Cough 04/28/19 06/07/24 mg-600 mg tablet extended hr (Mucinex DM) loratadine 10 mg tablet (Claritin) 10 mg PO QPM 04/28/19 06/07/24 acetaminophen 500 mg tablet 1,000 mg PO Q8 PRN Fever Or Pain 02/26/24 06/07/24 buspirone 10 mg tablet 10 mg PO BID 02/26/24 06/07/24 famotidine 20 mg tablet 20 mg PO QAM 02/26/24 06/07/24 fluoxetine 40 mg capsule 80 mg PO QAM 02/26/24 06/07/24 hydrochlorothiazide 12.5 mg capsule 12.5 mg PO QAM 02/26/24 06/07/24 melatonin 5 mg tablet 5 mg PO HS 02/26/24 06/07/24 mirabegron 25 mg tablet,extended 25 mg PO QAM 02/26/24 06/07/24 release 24 hr (Myrbetriq) omeprazole 20 mg capsule,delayed 20 mg PO QAM 02/26/24 06/07/24 release sodium chloride 0.65 % nasal spray 1 spray intranasal UD 02/26/24 06/07/24 aerosol (Saline Nasal) dextromethorphan-guaifenesin 10 10 ml PO Q4H PRN 03/19/24 06/07/24 mg-100 mg/5 mL oral syrup (Tussin cold/cough/congestion DM) latanoprost (PF) 0.005 % eye drops 1 drp ophthalmic (eye) HS 03/19/24 06/07/24 in a dropperette linaclotide 145 mcg capsule 145 mcg PO QAM 03/19/24 06/07/24 (Linzess) terbinafine HCl 1 % topical cream 1 applic topical UD PRN nail fungus 03/19/24 06/07/24 ammonium lactate 12 % lotion 1 applic topical DAILY 03/29/24 06/07/24 Previous Rx's Medication Instructions Recorded bisacodyl 5 mg tablet,delayed 5 mg PO DAILY 1 day #4 tabs 03/22/24 release (Dulcolax (bisacodyl)) triamcinolone acetonide 0.1 % 1 applic topical BID PRN ECZEMA 14 03/29/24 topical cream days #30 grams moisturizer lotion See Rx Instructions .Route 1XD #1 03/30/24 tube diclofenac sodium 1 % topical gel 2 g topical QID #100 grams 04/05/24 (Voltaren Arthritis Pain) Results & Data (ED) Vital Signs Vital Signs - 24 hr 06/07/24 20:25 06/07/24 20:25 06/07/24 20:29 Temperature 36.4 C L 36.4 C L Temperature Source Oral Pulse Rate 77 77 79 Pulse Rate [Apical] Pulse Rhythm [Apical] Pulse Strength [Apical] Respiratory Rate 22 22 Respiratory Effort / Characteristics Respiratory Depth Respiratory Pattern Blood Pressure 170/75 H 170/75 H Blood Pressure [Right Arm] Blood Pressure Mean 106 Blood Pressure Mean [Right Arm] Blood Pressure Position [Right Arm] Pulse Oximetry 100 100 Oxygen Delivery Method Room Air Room Air Sepsis Recent Fever Within 48 Hours No Sepsis New/Unexplained Change in Mental Status Yes Sepsis Action Taken by Nursing No Action Required 06/07/24 20:35 06/07/24 20:36 06/07/24 21:12 Temperature Temperature Source Pulse Rate 77 Pulse Rate [Apical] 74 Pulse Rhythm [Apical] Pulse Strength [Apical] Respiratory Rate 23 20 Respiratory Effort / Characteristics Respiratory Depth Respiratory Pattern Blood Pressure Blood Pressure [Right Arm] 136/58 L Blood Pressure Mean Blood Pressure Mean [Right Arm] 84 Blood Pressure Position [Right Arm] Pulse Oximetry 100 100 100 Oxygen Delivery Method Room Air Room Air Room Air Sepsis Recent Fever Within 48 Hours Sepsis New/Unexplained Change in Mental Status Sepsis Action Taken by Nursing 06/07/24 22:00 06/07/24 23:00 06/08/24 00:23 Temperature Temperature Source Pulse Rate 67 Pulse Rate [Apical] 71 69 Pulse Rhythm [Apical] Regular Pulse Strength [Apical] Normal Respiratory Rate 19 18 Respiratory Effort / Characteristics Non-Labored Spontaneous Respiratory Depth Normal Respiratory Pattern Regular Blood Pressure Blood Pressure [Right Arm] 143/62 H 141/62 H Blood Pressure Mean Blood Pressure Mean [Right Arm] 89 88 Blood Pressure Position [Right Arm] Semi-fowlers Pulse Oximetry 99 98 Oxygen Delivery Method Room Air Room Air Sepsis Recent Fever Within 48 Hours Sepsis New/Unexplained Change in Mental Status Sepsis Action Taken by Custodial Medications Current Medication List: was personally reviewed by me Laboratory Data Attestation: I reviewed the patient's lab results. 06/07/24 20:35 06/07/24 20:35 Lab Results 06/07/24 06/07/24 Range/Units 20:35 20:42 WBC 7.61 (4.8-10.8) K/ul RBC 4.44 (4.20-5.40) M/uL Hgb 13.5 (12.0-16.0) g/dl POC Hgb 13.3 (12.0-16.0) g/dl Hct 38.8 (37.0-47.0) % POC Hct 39 (37-47) % MCV 87.4 (80.0-100.0) fL MCH 30.4 (25.0-34.0) pg MCHC 34.8 (32.0-36.0) g/dL RDW Std Deviation 41.9 (36.4-46.3) fL RDW Coeff of Jose 13.1 (11.5-14.5) % Plt Count 283 (130-400) K/uL MPV 9.1 L (9.4-12.4) fL Immature Gran % (Auto) 0.4 % Neut % (Auto) 65.9 % Lymph % (Auto) 20.6 % Motley % (Auto) 10.5 % Eos % (Auto) 2.1 % Baso % (Auto) 0.5 % Neut # (Auto) 5.01 (1.40-6.50) K/uL Lymph # (Auto) 1.57 (1.20-3.40) K/uL Motley # (Auto) 0.80 H (0.11-0.59) K/uL Eos # (Auto) 0.16 (0.00-0.50) K/uL Baso # (Auto) 0.04 (0.00-0.20) K/uL Immature Gran # (Auto) 0.03 (0.01-0.20) K/uL PT 10.8 (9.0-12.0) Seconds INR 1.0 (0.9-1.1) POC Sodium 128 L (135-144) mmol/L Sodium 128 L (136-145) mmol/L POC Potassium 4.4 (3.3-5.0) mmol/L Potassium 4.3 (3.5-5.1) mmol/L POC Chloride 93 L (101-112) mmol/L Chloride 94 L (98-107) mmol/L Carbon Dioxide 25 (21-32) mmol/L POC Total CO2 23 L (24-31) mmol/L Anion Gap 9 (3-11) POC Anion Gap 16.0 (16-25) mmol/L POC BUN 15 (7-18) mg/dl BUN 15 (6-23) mg/dl Creatinine 0.61 (0.6-1.2) mg/dl POC Creatinine 0.6 (0.6-1.3) mg/dl Est Cr Clr Drug Dosing 82.7 ml/min Est GFR ( Amer) 105.7 ml/min Est GFR (Non-Af Amer) 91.2 ml/min BUN/Creatinine Ratio 24.6 H (10-20) Glucose 124 H (70-99(Fasting)) mg/dl POC Glucose (other) 125 H (70-99) mg/dl Calcium 9.2 (8.6-10.3) mg/dl POC Ioniz Calcium Dre 1.13 (1.12-1.32) mmol/l Total Bilirubin 0.8 (0.2-1.0) mg/dl AST 28 (13-39) U/L ALT 34 (7-52) U/L Alkaline Phosphatase 155 H (34-104) U/L Troponin I High Sens 6.3 (0-14) pg/ml Total Protein 6.3 (6.0-8.3) gm/dl Albumin 4.0 (3.4-5.0) gm/dl Globulin 2.3 L (2.5-4.0) gm/dl Albumin/Globulin Ratio 1.7 (0.9-2) Administered Medications Discontinued Medications Sodium Chloride (Nss) 500 mls @ 999 mls/hr IV .Q31M JOSE Stop: 06/07/24 21:15 Last Infusion: 06/07/24 21:20 Dose: Infused Documented By: Admin: 06/07/24 20:41 Dose: 999 mls/hr Documented By: ALTHEA Acetaminophen (Ofirmev) 1,000 mg in 100 mls @ 400 mls/hr IV NOW STA Stop: 06/07/24 20:47 Last Infusion: 06/07/24 21:20 Dose: Infused Documented By: Admin: 06/07/24 20:40 Dose: 400 mls/hr Documented By: ALTHEA Ondansetron HCl (Ondansetron Inj 2 Mg/Ml 2 Ml Vial) 4 mg IV NOW STA Stop: 06/07/24 20:34 Last Admin: 06/07/24 20:40 Dose: 4 mg Documented By: ALTHEA Imaging Data Radiologist's Impression: Cervical Spine CT 06/07/24 20:33 Exam(s): CT C SPINE EXAM: CT Cervical Spine Without Intravenous Contrast CLINICAL HISTORY: Reason for exam: Trauma. TECHNIQUE: Axial computed tomography images of the cervical spine without intravenous contrast. CTDI is 26.96 mGy and DLP is 156.1 mGy-cm. Automated exposure control was utilized for the study. A dose lowering technique was utilized adhering to the principles of ALARA. COMPARISON: No relevant prior studies available. FINDINGS: The vertebral body heights are maintained. The craniocervical junction is intact. The atlanto-dens interval is maintained. The dens is intact. There is no spondylolisthesis. Multilevel cervical spondylosis and degenerative disc disease. Straightening of the cervical lordosis. The unenhanced neck soft tissues are grossly unremarkable. The visualized lung apices are grossly clear. IMPRESSION: No acute fracture or subluxation of the cervical spine. Electronically signed by: Tristin Chris MD 06/07/24 22:[address] 06/07/24 20:33 Exam(s): CT FACIAL Without Contrast EXAM: CT Maxillofacial Without Intravenous Contrast CLINICAL HISTORY: Reason for exam: Trauma. TECHNIQUE: Axial computed tomography images of the face without intravenous contrast. CTDI is 38.17 mGy and DLP is 624.41 mGy-cm. Automated exposure control was utilized for the study. A dose lowering technique was utilized adhering to the principles of ALARA. COMPARISON: No relevant prior studies available. FINDINGS: The mandible is intact. Intact maxillary alveolus. The orbital rims and floors are intact. The intraorbital contents are grossly unremarkable. Intact nasal bones, nasal septum, and maxillary spines. LEFT periorbital soft tissue swelling. The zygomatic arches and pterygoid processes are intact. IMPRESSION: 1. No facial bone fracture. 2. LEFT periorbital soft tissue swelling. Electronically signed by: Tristin Chris MD 06/07/24 22:[address] 06/07/24 20:33 Exam(s): CT HEAD Without Contrast EXAM: CT Head Without Intravenous Contrast CLINICAL HISTORY: Reason for exam: Trauma. TECHNIQUE: Axial computed tomography images of the head/brain without intravenous contrast. CTDI is 38.17 mGy and DLP is 624.41 mGy-cm. Automated exposure control was utilized for the study. A dose lowering technique was utilized adhering to the principles of ALARA. COMPARISON: Prior head CT from February 26, 2024. FINDINGS: This study is limited secondary to motion artifact. Brain: Unremarkable. No hemorrhage. No significant white matter disease. No edema. Ventricles: Unremarkable. No ventriculomegaly. Bones/joints: Incomplete fusion of the posterior ring of C1. No acute fracture. Soft tissues: Mild soft tissue swelling around the lateral left orbit and forehead. Sinuses: Unremarkable as visualized. No acute sinusitis. Mastoid air cells: Unremarkable as visualized. No mastoid effusion. IMPRESSION: No evidence of acute intracranial pathology. Electronically signed by: Bessy Greene MD 06/07/24 23:09 PM Discharge Plan Visit Data Chief Complaint: Trauma Stated Complaint: FALL, CONFUSION, NAUSEA/VOMITING ED Provider: Jeremie Caicedo Discharge Problem: Hyponatremia, CHI (closed head injury), Facial laceration, Fall Forms Stand Alone Forms: [facility] Prescriptions Prescriptions: No Action bisacodyl [Dulcolax (bisacodyl)] 5 mg tablet,delayed release (DR/EC) 5 mg PO DAILY 1 Days Qty: 4 0RF moisturizer lotion See Rx Instructions .ROUTE 1XD Qty: 1 11RF Rx Instructions: amt. as needed for B/l arms 1 time daily; ammonium lactate 12 % lotion 1 applic topical DAILY Rx Instructions: Apply topically to dry areas of both feet at bedtime for dry skin triamcinolone acetonide 0.1 % cream 1 applic TOPICAL BID PRN (Reason: ECZEMA) 14 Days Qty: 30 1RF Rx Instructions: Please apply twin film twice daily to affected areas for eczema flares. Once rash resolves, this no longer needs to be applied. diclofenac sodium [Voltaren Arthritis Pain] 1 % gel 2 g topical QID Qty: 100 3RF Rx Instructions: place a dime sized drop in the bilateral knees up to 4 times a day. multivitamin Tablet 1 tab PO QAM alum-mag hydroxide-simeth 200-200-20 mg/5 mL Suspension 30 ml PO Q4 PRN (Reason: Gi Upset) lovastatin 20 mg Tablet 20 mg PO QAM fluticasone propionate [Flonase Allergy Relief] 50 mcg/actuation Webster,Suspension 2 spray INTRANASAL QAM Mucinex DM 30-600 mg Tablet Extended Release 12 Hr 1 tab PO Q12H PRN (Reason: Cough) loratadine [Claritin] 10 mg Tablet 10 mg PO QPM fluoxetine 40 mg capsule 80 mg PO QAM famotidine 20 mg tablet 20 mg PO QAM buspirone 10 mg tablet 10 mg PO BID hydrochlorothiazide 12.5 mg capsule 12.5 mg PO QAM omeprazole 20 mg capsule,delayed release(DR/EC) 20 mg PO QAM Saline Nasal 0.65 % Aerosol,Webster 1 spray INTRANASAL UD Rx Instructions: Immediately before steroid nasal spray or as needed melatonin 5 mg Tablet 5 mg PO HS mirabegron [Myrbetriq] 25 mg tablet extended release 24 hr 25 mg PO QAM acetaminophen 500 mg tablet 1,000 mg PO Q8 PRN (Reason: Fever Or Pain) terbinafine HCl 1 % cream 1 applic TOPICAL UD PRN (Reason: nail fungus) dextromethorphan-guaifenesin [Tussin DM] 10-100 mg/5 mL Syrup 10 ml PO Q4H PRN (Reason: cold/cough/congestion) Linzess 145 mcg Capsule 145 mcg PO QAM latanoprost (PF) 0.005 % Dropperette 1 drp OPHTHALMIC (EYE) HS Referrals Referrals: Evi Cano MD [Primary Care Provider] - Discharge Problem: CHI (closed head injury) Qualifiers: Encounter type: initial encounter Qualified Code(s): S09.90XA - Unspecified injury of head, initial encounter Facial laceration Qualifiers: Encounter type: initial encounter Qualified Code(s): S01.81XA - Laceration without foreign body of other part of head, initial encounter Fall Qualifiers: Encounter type: initial encounter Qualified Code(s): W19.XXXA - Unspecified fall, initial encounter
[2024-06-07] MEDS: ACETAMINOPHEN 1,000 MG/100 ML VIAL IV STA (20:40)
[2024-06-07] MEDS: ONDANSETRON INJ 2 MG/ML 2 ML VIAL IV STA (20:40)
[2024-06-07] MEDS: SODIUM CHLORIDE 0.9% 500 ML IV SCH (20:41)
[2024-06-07 20:50] LABS: Basophils # (auto) 0.04 K/uL (0.00-0.20); Basophils % (auto) 0.5 %; Eosinophils # (auto) 0.16 K/uL (0.00-0.50); Eosinophils % (auto) 2.1 %; Hematocrit (blood only) 38.8 % (37.0-47.0); Hemoglobin 13.5 g/dl (12.0-16.0); Immature Granulocytes # (auto) 0.03 K/uL (0.01-0.20); Immature Granulocytes % (auto) 0.4 %; Lymphocytes # (auto) 1.57 K/uL (1.20-3.40); Lymphocytes % (auto) 20.6 %; Mean Corpuscular Hemoglobin 30.4 pg (25.0-34.0); Mean Corpuscular Hgb Conc 34.8 g/dL (32.0-36.0); Mean Corpuscular Volume 87.4 fL (80.0-100.0); Mean Platelet Volume 9.1 fL (9.4-12.4); Monocytes % (auto) 10.5 %; Neutrophils # (auto) 5.01 K/uL (1.40-6.50); Neutrophils % (auto) 65.9 %; Platelet Count 283 K/uL (130-400); RDW Coefficient of Variation 13.1 % (11.5-14.5); RDW Standard Deviation 41.9 fL (36.4-46.3); Red Blood Count 4.44 M/uL (4.20-5.40); White Blood Count 7.61 K/ul (4.8-10.8)
[2024-06-07 20:54] LABS: iSTAT Creatinine 0.6 mg/dl (0.6-1.3); iSTAT Hemoglobin 13.3 g/dl (12.0-16.0); iSTAT Ionized Calcium 1.13 mmol/l (1.12-1.32); iSTAT Potassium 4.4 mmol/L (3.3-5.0)
[2024-06-07 21:07] LABS: Albumin Globulin Ratio 1.7 (0.9-2); BUN Creatinine Ratio 24.6 (10-20); Bilirubin,Total 0.8 mg/dl (0.2-1.0); Calcium 9.2 mg/dl (8.6-10.3); Creatinine Clr Calc Pharmacy 82.7 ml/min; Est GFR (African American) 105.7 ml/min; Est GFR (Non-African American) 91.2 ml/min; Globulin 2.3 gm/dl (2.5-4.0); Potassium 4.3 mmol/L (3.5-5.1); Total Protein 6.3 gm/dl (6.0-8.3)
[2024-06-07 21:14] LABS: Troponin I High Sensitivity 6.3 pg/ml (0-14)
[2024-06-07 21:50] LABS: Prothrombin Time 10.8 Seconds (9.0-12.0)
--- NOTE | 2024-06-07 22:45 | CT Scan Report ---
Exam(s): CT C SPINE EXAM: CT Cervical Spine Without Intravenous Contrast CLINICAL HISTORY: Reason for exam: Trauma. TECHNIQUE: Axial computed tomography images of the cervical spine without intravenous contrast. CTDI is 26.96 mGy and DLP is 156.1 mGy-cm. Automated exposure control was utilized for the study. A dose lowering technique was utilized adhering to the principles of ALARA. COMPARISON: No relevant prior studies available. FINDINGS: The vertebral body heights are maintained. The craniocervical junction is intact. The atlanto-dens interval is maintained. The dens is intact. There is no spondylolisthesis. Multilevel cervical spondylosis and degenerative disc disease. Straightening of the cervical lordosis. The unenhanced neck soft tissues are grossly unremarkable. The visualized lung apices are grossly clear. IMPRESSION: No acute fracture or subluxation of the cervical spine. Electronically signed by: Tristin Chris MD 06/07/24 22:44 PM
--- NOTE | 2024-06-07 22:53 | CT Scan Report ---
Exam(s): CT FACIAL Without Contrast EXAM: CT Maxillofacial Without Intravenous Contrast CLINICAL HISTORY: Reason for exam: Trauma. TECHNIQUE: Axial computed tomography images of the face without intravenous contrast. CTDI is 38.17 mGy and DLP is 624.41 mGy-cm. Automated exposure control was utilized for the study. A dose lowering technique was utilized adhering to the principles of ALARA. COMPARISON: No relevant prior studies available. FINDINGS: The mandible is intact. Intact maxillary alveolus. The orbital rims and floors are intact. The intraorbital contents are grossly unremarkable. Intact nasal bones, nasal septum, and maxillary spines. LEFT periorbital soft tissue swelling. The zygomatic arches and pterygoid processes are intact. IMPRESSION: 1. No facial bone fracture. 2. LEFT periorbital soft tissue swelling. Electronically signed by: Tristin Chris MD 06/07/24 22:53 PM
--- NOTE | 2024-06-07 23:10 | CT Scan Report ---
Exam(s): CT HEAD Without Contrast EXAM: CT Head Without Intravenous Contrast CLINICAL HISTORY: Reason for exam: Trauma. TECHNIQUE: Axial computed tomography images of the head/brain without intravenous contrast. CTDI is 38.17 mGy and DLP is 624.41 mGy-cm. Automated exposure control was utilized for the study. A dose lowering technique was utilized adhering to the principles of ALARA. COMPARISON: Prior head CT from February 26, 2024. FINDINGS: This study is limited secondary to motion artifact. Brain: Unremarkable. No hemorrhage. No significant white matter disease. No edema. Ventricles: Unremarkable. No ventriculomegaly. Bones/joints: Incomplete fusion of the posterior ring of C1. No acute fracture. Soft tissues: Mild soft tissue swelling around the lateral left orbit and forehead. Sinuses: Unremarkable as visualized. No acute sinusitis. Mastoid air cells: Unremarkable as visualized. No mastoid effusion. IMPRESSION: No evidence of acute intracranial pathology. Electronically signed by: Bessy Greene MD 06/07/24 23:09 PM
--- NOTE | 2024-06-07 23:37 | History & Physical Report ---
Date of Service June 07, 2024 Assessment & Plan (1) Fall: (2) Facial laceration: (3) CHI (closed head injury): (4) Hyponatremia: Plan Rosmery is a 69F w/ PMH of moderate intellectual disability, HLD, anxiety, GERD, HTN, osteoarthritis, migraines, and glaucoma who [facility] due to unwitnessed fall at home. Hyponatremia (128) - S/p 500cc NSS in ED - Repeat BMP w/ Na improvement - Provided additional NSS bolus - Suspect poor solute intake d/t hx - Does have chronic hyponatremia to 133-134 Unwitnessed Fall at Home Intellectual Disability, baseline - Mechanical fall at home this evening Fell and struck left brow and left shoulder - Hx of ambulatory dysfunction requiring PT, uses walker at baseline - Imaging Shoulder XR ordered Facial Bone CT w/o fracture, left periorbital edema and laceration Head CT/C-spine CT unremarkable - PT/OT evaluations Facial Laceration - Hemostasis obtained w/o sutures - No facial fractures, pain w/ eye movement, or hemotympanum - Continue supportive measures Chronic Conditions: - Anxiety - continue Buspirone and Fluoxetine - GERD - continue Famotidine and omeprazole - HTN - continue HCTZ - HLD - continue statin - Glaucoma - continu Lantoprost Code: Full Diet: Reg, HH DVT: SCD/Ambulation Dispo: Med pending PT/OT evals History of Present Illness Chief Complaint: Fall at home Primary Care Provider: Evi Cano MD Rosmery is a 69F w/ PMH of moderate intellectual disability, HLD, anxiety, GERD, HTN, osteoarthritis, migraines, and glaucoma who [facility] due to unwitnessed fall at home. ED Course: Zofran, Tylenol, 500cc NSS Patient seen with caregiver at bedside. Caregiver notes that she was helping the patient get ready for bed and had left the room to grab her night time medications, during this time, patient ambulated from between the bathroom and her bed with her walker and somehow slipped and fell, unwitnessed. Patient notes that 'she was leaving the bathroom and whoosh'. Patient was noted to have hit her left brow when she fell and had an episode of emesis following the bead injury, thus EMS was called and she was transported to the hospital. Patient denies any associated chest pain, dyspnea, headaches, lightheadedness, urinary or bowel symptoms prior to the fall. Caregiver also denies recent complaints of such. Patient is now noting pain at her left brow where she obtained the laceration. Caregiver notes that patient did not eat well today prior to the fall, and this has been a more frequent occurrence over the last few weeks. In addition, it was noted that patient has been becoming more unstable with ambulation/walker use, she had previously received PT but it was discontinued. No recent medication changes or missed dosing. Patient noted to be at baseline mentation. Allergies Allergy/AdvReac Type Severity Reaction Status Date / Time No Known Allergies Allergy Verified 03/29/24 10:39 Home Medications Medication Instructions Recorded Confirmed Type aluminum-mag hydroxide-simethicone 30 ml PO Q4 PRN Gi Upset 12/23/18 06/07/24 History 200 mg-200 mg-20 mg/5 mL oral susp fluticasone propionate 50 2 spray intranasal QAM 12/23/18 06/07/24 History mcg/actuation nasal spray,suspension (Flonase Allergy Relief) lovastatin 20 mg tablet 20 mg PO QAM 12/23/18 06/07/24 History multivitamin 1 tab PO QAM 12/23/18 06/07/24 History dextromethorphan-guaifenesin 30 1 tab PO Q12H PRN Cough 04/28/19 06/07/24 History mg-600 mg tablet extended [id number] hr (Mucinex DM) loratadine 10 mg tablet (Claritin) 10 mg PO QPM 04/28/19 06/07/24 History acetaminophen 500 mg tablet 1,000 mg PO Q8 PRN Fever Or Pain 02/26/24 06/07/24 History buspirone 10 mg tablet 10 mg PO BID 02/26/24 06/07/24 History famotidine 20 mg tablet 20 mg PO QAM 02/26/24 06/07/24 History fluoxetine 40 mg capsule 80 mg PO QAM 02/26/24 06/07/24 History hydrochlorothiazide 12.5 mg capsule 12.5 mg PO QAM 02/26/24 06/07/24 History melatonin 5 mg tablet 5 mg PO HS 02/26/24 06/07/24 History mirabegron 25 mg tablet,extended 25 mg PO QAM 02/26/24 06/07/24 History release 24 hr (Myrbetriq) omeprazole 20 mg capsule,delayed 20 mg PO QAM 02/26/24 06/07/24 History release sodium chloride 0.65 % nasal spray 1 spray intranasal UD 02/26/24 06/07/24 History aerosol (Saline Nasal) dextromethorphan-guaifenesin 10 10 ml PO Q4H PRN 03/19/24 06/07/24 History mg-100 mg/5 mL oral syrup (Tussin cold/cough/congestion DM) latanoprost (PF) 0.005 % eye drops 1 drp ophthalmic (eye) HS 03/19/24 06/07/24 History in a dropperette linaclotide 145 mcg capsule 145 mcg PO QAM 03/19/24 06/07/24 History (Linzess) terbinafine HCl 1 % topical cream 1 applic topical UD PRN nail fungus 03/19/24 06/07/24 History bisacodyl 5 mg tablet,delayed 5 mg PO DAILY 1 day #4 tabs 03/22/24 06/07/24 Rx release (Dulcolax (bisacodyl)) ammonium lactate 12 % lotion 1 applic topical DAILY 03/29/24 06/07/24 History triamcinolone acetonide 0.1 % 1 applic topical BID PRN ECZEMA 14 03/29/24 06/07/24 Rx topical cream days #30 grams moisturizer lotion See Rx Instructions .Route 1XD #1 03/30/24 06/07/24 Rx tube diclofenac sodium 1 % topical gel 2 g topical QID #100 grams 04/05/24 06/07/24 Rx (Voltaren Arthritis Pain) Past Med/Surg History Problem List (Updated 06/08/24 @ 00:36 by Jeremie Caicedo MD) Fall (Acute) Facial laceration (Acute) CHI (closed head injury) (Acute) Hyponatremia (Acute) Right knee DJD Osteoarthritis of left knee Seasonal allergic rhinitis Moderate intellectual disabilities Hyperlipidemia Anxiety GERD (gastroesophageal reflux disease) Hypertension Glaucoma Osteoarthritis of right ankle DJD (degenerative joint disease) of knee Medical History Intraductal carcinoma of right breast Intertrigo hx OAB (overactive bladder) Seasonal allergies Constipation Post-traumatic osteoarthritis of knees, bilateral Hx of breast cancer Benign paroxysmal vertigo Unilateral primary osteoarthritis, left knee Age-related nuclear cataract of both eyes Astigmatism Exotropia Myopia Blepharitis Migraine Adjustment disorder with anxiety Recurrent depressive disorder Allergic rhinitis Cervical high risk HPV (human papillomavirus) test positive Surgical History Surgical history unknown Family History Father , of [place] age 40 No problems noted. 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 Beliefs That Will Affect Care: None marital status: Single Current Living Situation: Personal Care Facility Current Living Situation Comment: [facility] [employer] current occupational status: disabled Other Information That Helps Us Care for You: No Feels Safe at Home: Yes Safety Concerns: Feels Safe At This Time Childhood Exposure to Second-Hand Smoke: No Diet: low salt and regular caffeine: Yes Dental Care, Regularly: Yes Physical Activity Frequency: Daily Seatbelt Use: always Sunscreen Use: Yes Assistive Devices: Denture - Upper, Denture - Lower and Glasses Physical Exam Physical Exam: Gen: NAD, pleasant, alert (AO x 2), follows commands HEENT: Supple, no LAD, no thyromegaly, no JVD, dry mucous membranes - Tympanic membranes normal bilaterally, no hemotympanum - PERRLA, EOMI w/o pain Resp:Non-labored, no wheezing/rhonchi/rales, CTAB CV:RRR, normal S1/S2, no M/R/G Abd: Soft, non-distended, no TTP, normoactive bowels, no masses Extr: 2+ dp bilaterally, no edema, strength and sensation intact Skin: No rashes lesions or erythema, small 5 mm forehead laceration w/ surrounding ecchymosis/hematoma, ecchymosis to left shoulder Results & Data Results & Data Vital Signs (Past 12 Hours) Vital Signs Temp Pulse Pulse Resp BP BP Pulse Ox 06/07/24 23:00 69 18 141/62 H 98 06/07/24 22:00 71 19 143/62 H 99 06/07/24 21:12 74 20 136/58 L 100 06/07/24 20:36 77 23 100 06/07/24 20:35 100 06/07/24 20:29 79 06/07/24 20:25 36.4 C L 77 22 170/75 H 100 06/07/24 20:25 36.4 C L 77 22 170/75 H 100 O2 Del Method 06/07/24 23:00 Room Air 06/07/24 22:00 Room Air 06/07/24 21:12 Room Air 06/07/24 20:36 Room Air 06/07/24 20:35 Room Air 06/07/24 20:29 06/07/24 20:25 Room Air 06/07/24 20:25 Room Air Supervising Physician Co-Signing Physician Notes Patient seen and examined, chart reviewed, case discussed with Dr. Woodward and I agree with the assessment and plan as above. In brief, patient is a 69yo female with intellectural disability, HTN, HLP [facility] after an unwitnessed fall, laceration on left eyebrow. Patient with hyponatremia - Na- 128. Poor appetite and decreased intake. On exam patient is resting comfortably, NAD Skin - laceration over left brow, now repaired with dermabond and steri-strip, - no active bleeding HEENT - MMM, Neck supple, EOMI Heart - +S1/S2, regular Lungs - CTA Abd - soft, NT/ND Labs and images reviewed Assessment/Plan Chronic hyponatremia with baseline Na 133-134. 128 on arrival --> 129 following 500mL NSS -Will hold HCTZ -Repeat labs in AM PT/OT evaluation appreciated Management of chronic medical conditions as above Resident Activity Tracking Resident Involvement: Resident Care Provided Care Provided: Adult Hospital Medicine (1) Fall Encounter type: initial encounter Qualified Code(s): W19.XXXA - Unspecified fall, initial encounter (2) Facial laceration Encounter type: initial encounter Qualified Code(s): S01.81XA - Laceration without foreign body of other part of head, initial encounter (3) CHI (closed head injury) Encounter type: initial encounter Qualified Code(s): S09.90XA - Unspecified injury of head, initial encounter
[2024-06-08] MEDS ORDERED: MELATONIN 3 MG TAB PO PRN (01:43)
[2024-06-08] MEDS ORDERED: ONDANSETRON INJ 2 MG/ML 2 ML VIAL IV PRN (01:43)
[2024-06-08] MEDS ORDERED: POLYETHYLENE (MIRALAX) 17 GM PACK PO PRN (01:43)
[2024-06-08] MEDS ORDERED: ACETAMINOPHEN 500 MG TAB PO PRN (01:43)
[2024-06-08 01:47] LABS: Calcium 8.9 mg/dl (8.6-10.3); Creatinine Clr Calc Pharmacy 85.5 ml/min; Est GFR (African American) 106.9 ml/min; Est GFR (Non-African American) 92.2 ml/min
--- NOTE | 2024-06-08 02:30 | Billing Data ---
Date of Service June 07, 2024 Coding Level of Care Code 17070 INT INP/OBS CARE
[2024-06-08] MEDS: SODIUM CHLORIDE 0.9% 500 ML IV ONE (04:01)
[2024-06-08 05:06] LABS: Hematocrit (blood only) 33.5 % (37.0-47.0); Hemoglobin 11.7 g/dl (12.0-16.0); Mean Corpuscular Hemoglobin 30.2 pg (25.0-34.0); Mean Corpuscular Hgb Conc 34.9 g/dL (32.0-36.0); Mean Corpuscular Volume 86.6 fL (80.0-100.0); Mean Platelet Volume 9.1 fL (9.4-12.4); Platelet Count 256 K/uL (130-400); RDW Coefficient of Variation 13.1 % (11.5-14.5); RDW Standard Deviation 41.1 fL (36.4-46.3); Red Blood Count 3.87 M/uL (4.20-5.40); White Blood Count 6.17 K/ul (4.8-10.8)
[2024-06-08 05:18] LABS: Albumin Globulin Ratio 1.8 (0.9-2); Albumin Level 3.5 gm/dl (3.4-5.0); BUN Creatinine Ratio 20.8 (10-20); Bilirubin,Total 0.7 mg/dl (0.2-1.0); Calcium 8.7 mg/dl (8.6-10.3); Creatinine Clr Calc Pharmacy 95.1 ml/min; Est GFR (African American) 110.7 ml/min; Est GFR (Non-African American) 95.5 ml/min; Globulin 1.9 gm/dl (2.5-4.0); Potassium 3.8 mmol/L (3.5-5.1); Total Protein 5.4 gm/dl (6.0-8.3)
--- OUTSIDE RECORDS SUMMARY | 2024-06-08 06:17 | External Medical Summary | Summary of Care ---
Author Name Unknown Organization [facility] Address [address] [place] [address] Phone [phone] Care Team Providers Care Tie Carrier Name Role Phone Chel Dugan MD Primary Care Provider [phone] Reason for Visit * Reason Comments eRx-Medication Refill Encounter Details Date Type Department Care Team ([facility] st Contact Info) Description 04/21/2024 Refill [facility] [address] [place] [address] Kelli Landaverde, [address] [place] [address] Routine medical exam Allergies Active Allergy Reactions Criticality Noted Date Comments Pollen 11/09/2019 Nasal congestion documented as of this encounter (statuses as of 04/23/2024) Medications Medication Sig Dispensed Refills Start Date End Date Status Glucosamine-Chond roitin-Vit D3 4523-3766-945 MG-MG-UNIT PACK Take 1 Units by mouth daily. Take by mouth. 30 Each 5 8 Active saline (OCEAN NASAL SPRAY) 0.65 % nasal sprayIndications: Allergic rhinitis, unspecified seasonality, unspecified trigger one sprays in each nostril immediately before steroid nasal spray, or as needed for nasal dryness or congestion 1 Bottle 5 8 Active Dextromethorphan- guaiFENesin (MUCINEX DM) 30-600 MG TB12 Take 1 Tab by mouth 2 times a day as needed for Cough. Take with plenty of water. Do not cut, crush or chew 40 Tab 2 9 Active Simethicone 20 MG/0.3ML Oral Suspension Take 30 mL by mouth every 4 hours as needed for Nausea (vomiting). Active Neosporin Original External Ointment Apply topically to affected area as needed (cuts, scrapes, & scratches). Active Adult Blood Pressure Cuff Lg KitIndications:Ur ge incontinence of urine Check blood pressure twice a week, to call DR Landaverde if the systolic goes above 150 1 Kit 1 Active Meclizine HCl 25 MG Oral Tablet (Antivert) TAKE ONE TABLET BY MOUTH THREE TIMES DAILY NEEDED FOR DIZZINESS 20 Tab 1 Active Carbamide Peroxide 6.5 % Otic Solution (Debrox) 5 Drops every morning. Active Dextromethorphan Polistirex ER 30 MG/5ML Suspension Extended Release Take by mouth . Act dario Bisacodyl 5 MG Oral Tablet Delayed Release (Dulcolax) Take according to colonoscopy prep instructions. 4 Tablet 2 Active Citalopram Hydrobromide 20 MG Oral Tablet (CeleXA)Indicatio ns:Anxiety state TAKE 1 TAB BY MOUTH DAILY (DEPRESSION) 90 Tablet 3 3 Active Depend Easy Fit UndergarmentsIndi cations:Urinary incontinence, unspecified type USE DAILY DIRECTED INCONTINENCE MEDLINE [id number] 80 Each 5 3 Active Terbinafine HCl 1 % External Cream (LamISIL AT)Indications:In tertrigo Apply topically to affected area 2 times a day as needed for Other (rash). To affected area. 42 g 1 3 Active Acetaminophen 500 MG Oral Tablet (Tylenol)Indicati ons:Chronic pain of right knee,Venous insufficiency,Jose icose veins of lower extremity, unspecified laterality, unspecified whether complicated take 2 tablets every 8 hours as needed for pain or fever 100 Tablet 3 Active Quik-Sorb Underpad DIRECTED 3 Each 4 4 Active Triamcinolone Acetonide 0.1 % External Cream (Aristocort)Indic ations:Intertrigo APPLY TO AFFECTED AEA TWICE DAILY FOR INTERTRIGO 80 g 4 4 Active Omeprazole 20 MG Oral Capsule Delayed Release (PriLOSEC)Indicat ions:Gastroesopha geal reflux disease without esophagitis TAKE ONE CAPSULE BY MOUTH DAILY 1 HOUR BEFORE THE FIRST MEALS OF THE DAY FOR GERD 28 Capsule 4 4 Active Loratadine 10 MG Oral Tablet (Allergy Relief (Loratadine)) Take 1 Tablet by mouth every afternoon. 90 Tablet 3 4 Active busPIRone HCl 10 MG Oral Tablet (Buspar)Indicatio ns:Fear of thunderstorms,ERIC (generalized anxiety disorder) One tab by mouth twice daily 4 Active Famotidine 20 MG Oral Tablet (Pepcid) TAKE ONE TABLET BY MOUTH DAILY *GERD* 28 Tablet 4 4 Active Lovastatin 20 MG Oral Tablet (Mevacor)Indicati ons:Dyslipidemia, goal LDL below 100 TAKE ONE TAB BY MOUTH DAILY FOR CHOLESTEROL 28 Tablet 4 4 Active Fluticasone Propionate 50 MCG/ACT Nasal Suspension (Flonase)Indicati ons:Nasal congestion INSTILL 2 SPRAYS INTO EACH NOSTRIL DAILY *CONGESTION/ALLER GIES* 16 g 11 4 Active Ammonium Lactate 12 % External Lotion (Lac-Hydrin) APPLY TOPICALLY TO DRY AREAS OF BOTH FEET AT BEDTIME *DRY SKIN* 225 g 5 4 Active linaCLOtide 145 MCG Oral Capsule (Linzess) Take 1 Capsule by mouth daily before breakfast. 90 Capsule 3 4 Active Mirabegron ER 25 MG Oral Tablet Extended Release 24 Hour (Myrbetriq)Indica tions:Urge incontinence of urine Take 1 Tablet by mouth in the morning. 28 Tablet 4 4 Active hydroCHLOROthiazi de 12.5 MG Oral Capsule TAKE ONE CAPSULE BY MOUTH DAILY FOR HTN/EDEMA 28 Capsule 11 4 Active Daily-Lobo Oral TabletIndications :Routine medical exam TAKE ONE TABLET BY MOUTH DAILY *SUPPLEMENT* 28 Tablet 11 4 Active Daily-Lobo Oral TabletIndications :Routine medical exam TAKE ONE TABLET BY MOUTH DAILY *SUPPLEMENT* 28 Tablet 5 4 04/23/20 24 Discontinued hydroCHLOROthiazi de 12.5 MG Oral Capsule (Hydrodiuril) TAKE ONE CAPSULE BY MOUTH DAILY FOR HTN/EDEMA 28 Capsule 4 4 04/23/20 24 Discontinued documented as of this encounter (statuses as of 04/23/2024) Active Problems Problem Noted Date Diagnosed Date History of breast cancer 02/13/2024 Primary osteoarthritis of left knee 06/17/2017 Venous insufficiency 04/23/2012 Moderate intellectual disability 09/17/2011 Overview: ICD-10 update of inactive term Anxiety state 09/17/2011 Dyslipidemia, goal LDL below 100 documented as of this encounter (statuses as of 04/23/2024) Resolved Problems Problem Noted Date Diagnosed Date Resolved Date Other artificial openings of gastrointestinal tract status 07/26/2022 07/26/2022 Morbid obesity with body mas s index (BMI) of 40.0 to 44.9 in adult 10/09/2018 01/09/2023 Neoplasm of right breast, 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) 09/22/2018 02/13/2024 Prediabetes 10/21/2017 06/22/2020 Overview: Per Prediabetes protocol #1 Severe obesity with body mas s index (BMI) of 35.0 to 39.9 with serious comorbidity 03/19/2017 Overview: bmi= 37.63 03/19/17 ICD-10 update of inactive diagnosis Abrasion of right leg 03/19/20172017 Encounter for screening mamm ogram for breast cancer 06/12/2016 03/19/2017 Body mass index 39.0-39.9, adult 12/29/2015 03/19/2017 Overview: bmi= 39.51 12/29/15 Bronchitis, complicated 11/08/201503/08 Viral URI with cough 09/05/2015 017 Closed displaced fracture of nasal bone 06/22/2015 03/19/2017 Scalp contusion 06/22/2015 03/19/2017 Severe obesity with body mas s index (BMI) of 35.0 to 39.9 with serious comorbidity 01/10/2015 Overview: bmi= 39.38 01/10/15 ICD-10 update of inactive diagnosis Severe obesity with body mas s index (BMI) of 35.0 to 39.9 with serious comorbidity 04/15/2014 Overview: bmi= 37.64 04/15/14 ICD-10 update of inactive diagnosis Anxiety 09/14/2013 08/02/2019 Severe obesity with body mas s index (BMI) of 35.0 to 39.9 with serious comorbidity 08/12/2013 Overview: BMI= 38.85 08/12/13 ICD-10 update of inactive diagnosis Severe obesity with body mas s index (BMI) of 35.0 to 39.9 with serious comorbidity 11/12/2012 Overview: bmi= 38.11 11/12/12 ICD-10 update of inactive diagnosis Acute URI 08/10/2012 01/10/2015 Viral infection 08/10/2012 01/10/2015 Severe obesity with body mas s index (BMI) of 35.0 to 39.9 with serious comorbidity 04/23/2012 Overview: bmi= 39.09 04/23/12 ICD-10 update of inactive diagnosis Screen for colon cancer 04/23/201203/08 Other screening mammogram 04/23/2012 Knee pain, right 04/23/2012 03/19/2017 Varicose vein of leg 04/23/2012 017 Menopause 02/24/2012 02/24/2012 Open wound of scalp 02/19/2012 03/19/20 17 Post-menopausal 09/17/2011 12/11/2023 Heartburn 09/17/2011 03/19/2017 Allergic rhinitis 09/17/2011 12/28/2018 Chronic sinusitis 09/17/2011 06/29/2012 Open wound of scalp 06/22/2010 01/11/20 15 Heartburn 04/10/2010 06/29/2012 Slow transit constipation 04/10/2010 Obesity, Class II, BMI 35-39 .9, isolated (see actual BMI) 12/04/2009 04/10/2010 Overview: Per Obesity Taxonomy Synovial cyst 08/22/2009 12/28/2018 Need for influenza vaccination 07/03/2009 01/10/2015 Family history of diabetes mellitus 05/30/2009 01/10/2015 Other screening mammogram 05/30/2008 Overview: Resolved per Screening Diagnosis Protocol #6 Overweight (BMI 25.0-29.9) 02/29/2008 0 12/04/2009 Overview: Per Obesity Taxonomy DJD, LEFT KNEE 05/30/2006 01/10/2015 SWELLING, LEFT KNEE 05/30/2006 05/24/20 08 Screening for malignant neoplasm of breast 05/26/2006 11/16/2008 Overview: Resolved per Screening Diagnosis Protocol #6 Special screening for malign ant neoplasms, colon 05/26/2006 11/16/2008 Overview: Resolved per Screening Diagnosis Protocol #6 Dyslipidemia, goal to be determined 05/26/2006 12/03/2010 Urinary incontinence 07/26/2005 015 Overview: ICD-10 update of inactive term SPRAIN OF KNEE, LEFT 03/29/2005 015 ADVANCE DIRECTIVE INFORMATION 03/26/2005 01/10/2015 Overview: No, Advance Directive brochure given to patient. PATELLOFEMORAL PAIN SYNDROME, LEFT 03/26/2005 01/10/2015 Menopause 01/02/2005 02/24/2012 ROUTINE MEDICAL EXAM 01/02/2005 015 FEM STRESS INCONTINENCE 04/09/2004 05/01/2015 Urinary frequency 04/09/2004 01/10/2015 Cough 04/09/2004 01/10/2015 Anxiety state 01/31/2004 09/17/2011 Allergic rhinitis 03/31/2002 09/17/2011 Hearing loss 03/31/2002 01/10/2015 ABN PAP SMEAR-ENDOMETRIAL CELLS 06/17/2000 01/10/2015 HYPERGLYCEMIA 06/09/2000 01/10/2015 MOD MENTAL RETARDATION 02/12 documented as of this encounter (statuses as of 04/23/2024) Immunizations Name Administration Dates Next Due COVID-19 mRNA, LNP-s, No Pre serve, 2-Dose Series (Snow [employer] Alps) 09/05/2021,11/02/2020,10/12/2020 Covid-19, Mrna, Lnp-s, Pf, B ivalent, 30 Mcg, IM, 12 yrs and above (Snow & Alps) 07/08/2022 H1N1 2009 Influenza, IM 08/24/2009 PPD 02/13/2024,,02/16/2020,10/2017,04/02/2016,04/15/2014,06/10/20 12,06/06/2010,11/30/2008,12/09/2006 Pneumococcal Conjugate Vacc, 13 Valent (Prevnar) 06/10/2018 Pneumococcal Polysaccharide PPV23 (Pneumovax) 08/02/2019 Seasonal Influenza, PF, 6 M & above, IM , (FluLaval or Fluzone) 06/01/2020,06/10/2019,06/10/2018,06/0806/17/2018 Seasonal Influenza, Quadriva lent Hd (Fluzone Hd) 05/22/2022,05/25/2021 Seasonal Influenza, Quadriva lent, No Preserve, IM 07/03/2016 07/03/2017 Seasonal Influenza, Split, I IV3, With Preserve, Inj 05/25/2015,07/16/2014,07/23/2013,05/10,06/03/2011,06/01/2010,05/30/20 09,07/04/2008,07/10/2007,07/09/2006 05/25/2016 TDAP (age 10 and older)(Boostrix) 04/02/2016 TDAP, Age 7 and older, IM (Adacel) 12/09/2006 Varicella Zoster Vaccine (Adult) 07/09/2017 Zoster Vaccine Recombinant (Shingrix) 08/18/2020 ,06/09/2020 documented as of this encounter Social History Tobacco Use Types Packs/Day Years Used Date Smoking Tobacco: Never Passive Smoke Exposure: Never Smokeless Tobacco: Never Alcohol Use Standard Drinks/Week Comments No 0 (1 standard drink = 0.6 oz pur e alcohol) PHQ-2 Answer Date Recorded PHQ Adult Total Score 0 02/13/2024 Hunger Vital Sign Answer Date Recorded Within the past 12 months, y ou worried that your food would run out before you got the money to buy more. Patient declined Within the past 12 months, t he food you bought just didn't last and you didn't have money to get more. Patient declined 03/2024 Childcare Answer Date Recorded Do you feel overwhelmed with taking care of a child, family member or friend? No 02/13/2024 Does your family need help f inding childcare? (Household - for ages 0-17 years) Not on file 02/13/2024 Clothing Answer Date Recorded Have you been unable to get clothing when it was really needed? No 02/13/2024 Is your family able to get c lothes or diapers when needed? (Household - for ages 0-17 years) Not on file 02/13/2024 Personal Safety Answer Date Recorded Do you feel unsafe or have concerns for your saf ety? No 02/13/2024 Do you have concerns for you r family's safety? (Household - for ages 0-17 years) Not on file 02/13/2024 Utilities Answer Date Recorded Do you have trouble paying y our heating, water, or electric bill? No 02/13/2024 Is your family able to pay t he heat, water, or electric bill? (Household - for ages 0-17 years) Not on file 02/13/2024 Does your family have access to good internet? (Household - for ages 0-17 years) Not on file 02/13/2024 Employment Status Answer Date Recorded Are you unemployed or without regular income? No 02/13/2024 Does the household have a re gular source of income? (Household - for ages 0-17 years) Not on file 02/13/2024 Social Connections Answer Date Recorded How often do you feel lonely or isolated from th ose around you? Never 02/13/2024 Financial Resource Strain Answer Date R ecorded Do you have any trouble payi ng for your medications, or do you think you might in the future? No 02/13/2024 Does your family have troubl e paying for medicine? (Household - for ages 0-17 years) Not on file 02/13/2024 Transportation Needs Answer Date Record ed READ ONLY Do you have troubl e getting a ride to medical visits or work? Never True 02/13/2024 Does your family have a hard time getting a ride to doctors visits? (Household - for ages 0-17 years) Not on file 02/13/2024 Has lack of transportation k ept you from medical appointments, meetings, work, or from getting things needed for daily living? Check all that apply. (Adult - for ages 18 years and over) Not on file 02/13/2024 Do you (or your family) have trouble finding or paying for a ride (transportation)? (Household - for ages 0-17 years) Not on file 02/13/2024 Housing Stability Answer Date Recorded Do you currently live in a s helter or have no steady place to sleep at night? No 02/13/2024 READ ONLY Do you think you a re at risk of becoming homeless? No 02/13/2024 Does your family worry about paying for your home or becoming homeless? (Household - for ages 0-17 years) Not on file 0 02/13/2024 Are you homeless or worried that you might be in the future? (Adult - for ages 18 years and over) Not on file Are you (or your family) braxton eless or worried that you might be in the future? (Household - for ages 0-17 years) Not on file Food Insecurity Answer Date Recorded Do you need food for this week? No 02/13/2024 Are you able to get enough f ood for your family? (Household - for ages 0-17 years) Not on file 02/13/2024 Does your family need food t his week? (Household - for ages 0-17 years) Not on file 02/13/2024 Do you always have enough fo od for your family? (Household - for ages 0-17 years) Not on file 02/13/2024 Sex and Gender Information Value Date Recorded Sex Assigned at Female 11/12/2019 10:39 AM EST Gender Identity Female 11/12/2019 10:39 AM EST Sexual Orientation Straight 10/29/2019 12 :27 PM EST Job Start Date Occupation Industry Not on file Not on file Not on file documented as of this encounter Miscellaneous Notes * Telephone Encounter - Chel Dugan MD - 04/23/2024 9:54 AM EDTSigned Prescriptions: Disp Refills hydroCHLOROthiazide 12.5 MG Oral Capsule 28 Cap*11 Sig: TAKE ONE CAPSULE BY MOUTH DAILY FOR HTN/EDEMA Authorizing Provider: CHEL DUGAN Daily-Lobo Oral Tablet 28 Tab*11 Sig: TAKE ONE TABLET BY MOUTH DAILY *SUPPLEMENT* Authorizing Provider: CHEL DUGAN * Telephone Encounter - Clau Johns [facility] - 04/23/2024 8:53 AM EDT Pending Prescriptions: Disp Refills hydroCHLOROthiazide 12.5 MG Oral Capsule 28 Cap*4 Sig: TAKE ONE CAPSULE BY MOUTH DAILY FOR HTN/EDEMA Daily-Lobo Oral Tablet 28 Tab*4 Sig: TAKE ONE TABLET BY MOUTH DAILY *SUPPLEMENT* * Telephone Encounter - Clau Johns RP - 04/23/2024 8:53 AM EDT NA Date Value Ref Range Status 02/23/2024 134 (L) 135 - 146 mmol/L Final 12/11/2023 134 (L) 135 - 146 mmol/L Final 07/29/2023 134 (L) 135 - 146 mmol/L Final documented in this encounter Plan of Treatment Upcoming Encounters Date Type Department Care Team (Latest Contact Info) Description 07/07/2024 11:15 AM EDT Hospital Encounter [facility], Endoscopy Room [facility] [address] [place], [place] [id number] Catia Hernandez MD [address] [place] [address] 07/07/2024 11:15 AM EDT - 07/07/2024 12:15 PM EDT Surgery ENDO [facility], Endoscopy Room [facility] [address] [place] [id number] Catia Hernandez MD [address] [place] [id number] COLONOSCOPY FLEXIBLE PROXIMAL DIAGNOSTIC 08/30/2024 10:15 AM EST Imaging Radiology [address] [place] [id number] Scheduled Procedures Name Priority Associated Diagnoses Date/Ti ia COLONOSCOPY FLEXIBLE PROXIMA L DIAGNOSTIC Psychogenic vomiting with nausea Gastroesophageal reflux disease without esophagitis 07/07/2024 11:15 AM EDT ESOPHAGOGASTRODUODENOSCOPY ( EGD), FLEXIBLE, TRANSORAL, DIAGNOSTIC Psychogenic vomiting with nausea Gastroesophageal reflux disease without esophagitis 07/07/2024 11:15 AM EDT COLONOSCOPY FLEXIBLE PROXIMA L DIAGNOSTIC Recall Tubulovillous adenoma of colon Health Maintenance Due Date Last Done Comments Sigmoidoscopy 1998 Fecal Occult Blood Test 05/16/2018 05/16/20 17, 04/19/2016, 02/15/2015, Additional history exists Adult Wellness Visit 2019 COVID-19 Vaccine ( season) 2023 06/25/2023, 07/08/2022, 09/05/2021, Additional history exists Influenza Vaccine (FLU shot) (#1) 2024 05/22/2022, 05/25/2021, 06/01/2020, Additional history exists Mammogram 08/27/2024 08/27/2023, 08/09, 09/11/2022, Additional history exists Depression Screening 02/12/2025 02/13/2024, 06/22/2015 (Discussed) Cologuard 04/25/2025 04/25/2022, 08/0 05/2022, 04/16/2022, Additional history exists DXA Scan 09/30/2025 09/30/2018 DTaP,Tdap,and Td Vaccines (3 - Td or Tdap) 04/02/2026 04/02/2016, 12/09/2006, 07/11/1997 Lipid Panel 02/22/2029 02/23/2024, 06/08, 06/01/2021, Additional history exists Hepatitis B Vaccine Completed 05/22/2004, 2003, 01/26/2003 Pneumococcal Vaccine: 65+ Years Completed 08/02/2019, 06/10/2018 Zoster Vaccines Completed 08/18/2020, 10/2019, 07/09/2017 Colonoscopy Discontinued 06/19/2022, 06/19/2022 Colorectal Cancer Screening Discontinued HPV (Gardasil) Vaccine Aged Out No lo nger eligible based on patient's age to complete this topic Hepatitis C Screening Discontinued MENINGOCOCCAL (MENACTRA/MENVEO) Aged Out No longer eligible based on patient's age to complete this topic documented as of this encounter Medical Devices Not on filedocumented as of this encounter Visit Diagnoses Diagnosis Routine medical exam Routine general medical examination at a health care facility Psychogenic vomiting with nausea Gastroesophageal reflux disease without esophagitis Esophageal reflux documented in this encounter Advance Directives * Full Code (Latest Code Status on File) Date Activated Date Inactivated Comments 10/02/2022 8:47 AM 10/02/2022 4:25 PM This order r eflects the patients wishes and were consensually agreed upon. Question Answer Comments Discussion of Advance Directives occurred with: Patient Does the patient have a Living Will? No Does the patient have Health Care Power of Attor michi? No Care Teams Tie Carrier Relationship Specialty Start Date End Date Chel Dugan MD [address] [place] [address] PCP - General Internal Medicine 03/21/24 documented as of this encounter
--- OUTSIDE RECORDS SUMMARY | 2024-06-08 06:17 | External Medical Summary | Summary of Care ---
Author Name Unknown Organization [facility] Address [address] [place] [address] Phone [phone] Care Team Providers Care Big Machine Consultant Name Role Phone Chel Dugan MD Primary Care Provider [phone] Encounter Details Date Type Department Care Team (Late st Contact Info) Description 05/24/2024 Refill [facility] [address] [place] [address] Chel Dugan MD [address] [place] [address] Allergies Active Allergy Reactions Criticality Noted Date Comments Pollen 11/09/2019 Nasal congestion documented as of this encounter (statuses as of 05/24/2024) Medications Medication Sig Dispensed Refills Start Date End Date Status Glucosamine-Chond roitin-Vit D3 1739-8914-260 MG-MG-UNIT PACK Take 1 Units by mouth daily. Take by mouth. 30 Each 5 06/10/2018 Active saline (OCEAN NASAL SPRAY) 0.65 % nasal sprayIndications: Allergic rhinitis, unspecified seasonality, unspecified trigger one sprays in each nostril immediately before steroid nasal spray, or as needed for nasal dryness or congestion 1 Bottle 5 06/10/2018 Active Dextromethorphan- guaiFENesin (MUCINEX DM) 30-600 MG TB12 Take 1 Tab by mouth 2 times a day as needed for Cough. Take with plenty of water. Do not cut, crush or chew 40 Tab 2 02/26/2019 Active Simethicone 20 MG/0.3ML Oral Suspension Take [...] the systolic goes above 150 1 Kit 10/30/2020 Active Meclizine HCl 25 MG Oral Tablet (Antivert) TAKE ONE TABLET BY MOUTH THREE TIMES DAILY NEEDED FOR DIZZINESS 20 Tab 06/29/2021 Active Carbamide Peroxide 6.5 % Otic Solution (Debrox) 5 Drops every morning. Active Dextromethorphan Polistirex ER 30 MG/5ML Suspension Extended Release Take by mouth . Act dario Citalopram Hydrobromide 20 MG Oral Tablet (CeleXA)Indicatio ns:Anxiety state TAKE 1 TAB BY MOUTH DAILY (DEPRESSION) 90 Tablet 3 01/09/2023 Active Depend Easy Fit UndergarmentsIndi cations:Urinary incontinence, unspecified type USE DAILY DIRECTED INCONTINENCE MEDLINE [id number] 80 Each 5 01/29/2023 Active Terbinafine HCl 1 % External Cream (LamISIL AT)Indications:In tertrigo Apply topically to affected area 2 times a day as needed for Other (rash). To affected area. 42 g 1 04/30/2023 Active Acetaminophen 500 MG Oral Tablet (Tylenol)Indicati ons:Chronic pain of right knee,Venous insufficiency,Jose icose veins of lower extremity, unspecified laterality, unspecified whether complicated take 2 tablets every 8 hours as needed for pain or fever 100 Tablet 09/05/2023 Active Quik-Sorb Underpad DIRECTED 3 Each 4 11/16/2023 Active Triamcinolone Acetonide 0.1 % External Cream (Aristocort)Indic ations:Intertrigo APPLY TO AFFECTED AEA TWICE DAILY FOR INTERTRIGO 80 g 4 11/26/2023 Active busPIRone HCl 10 MG Oral Tablet (Buspar)Indicatio ns:Fear of thunderstorms,ERIC (generalized anxiety disorder) One tab by mouth twice daily 01/02/2024 Active Famotidine 20 MG Oral Tablet (Pepcid) TAKE ONE TABLET BY MOUTH DAILY *GERD* 28 Tablet 4 01/05/2024 Active Lovastatin 20 MG Oral Tablet (Mevacor)Indicati ons:Dyslipidemia, goal LDL below 100 TAKE ONE TAB BY MOUTH DAILY FOR CHOLESTEROL 28 Tablet 4 01/05/2024 Active Fluticasone Propionate 50 MCG/ACT Nasal Suspension (Flonase)Indicati ons:Nasal congestion INSTILL 2 SPRAYS INTO EACH NOSTRIL DAILY *CONGESTION/ALLER GIES* 16 g 11 01/22/2024 Active Ammonium Lactate 12 % External Lotion (Lac-Hydrin) APPLY TOPICALLY TO DRY AREAS OF BOTH FEET AT BEDTIME *DRY SKIN* 225 g 5 02/11/2024 Active linaCLOtide 145 MCG Oral Capsule (Linzess) Take 1 Capsule by mouth daily before breakfast. 90 Capsule 3 02/13/2024 Active Mirabegron ER 25 MG Oral Tablet Extended Release 24 Hour (Myrbetriq)Indica tions:Urge incontinence of urine Take 1 Tablet by mouth in the morning. 28 Tablet 4 03/22/2024 Active hydroCHLOROthiazi de 12.5 MG Oral Capsule TAKE ONE CAPSULE BY MOUTH DAILY FOR HTN/EDEMA 28 Capsule 11 04/23/2024 Active Daily-Lobo Oral TabletIndications :Routine medical exam TAKE ONE TABLET BY MOUTH DAILY *SUPPLEMENT* 28 Tablet 11 04/23/2024 Active Linzess 290 MCG Oral Capsule (linaCLOtide) Take 1 Capsule by mouth daily before breakfast. 90 Capsule 3 04/29/2024 Active Bisacodyl 5 MG Oral Tablet Delayed Release (Dulcolax) Take 2 tabs and then ok to repeat 1-2 tabs in 24 hours. Water intake minimum 60-80 oz per day 4 Tablet 04/29/2024 Active Omeprazole 20 MG Oral Capsule Delayed Release (PriLOSEC)Indicat ions:Gastroesopha geal reflux disease without esophagitis TAKE ONE CAPSULE BY MOUTH DAILY 1 HOUR BEFORE THE FIRST MEALS OF THE DAY FOR GERD 28 Capsule 4 05/20/2024 Active Loratadine 10 MG Oral Tablet (Allergy Relief (Loratadine)) Take 1 Tablet by mouth every afternoon. 90 Tablet 3 05/24/2024 Active Loratadine 10 MG Oral Tablet (Allergy Relief (Loratadine)) Take 1 Tablet by mouth every afternoon. 90 Tablet 3 12/11/2023 Discontinue d(Refill) documented as of this encounter (statuses as of 05/24/2024) Active Problems Problem Noted Date Diagnosed Date History of breast cancer 02/13/2024 Primary osteoarthritis of left knee 06/17/2017 Venous insufficiency 04/23/2012 Moderate intellectual disability 09/17/2011 Overview: ICD-10 update of inactive term Anxiety state 09/17/2011 Dyslipidemia, goal LDL below 100 documented as of this encounter (statuses as of 05/24/2024) Resolved Problems Problem Noted Date Diagnosed Date [...] as of this encounter (statuses as of 05/24/2024) Immunizations Name Administration Dates Next Due COVID-19 mRNA, LNP-s, No Pre serve, 2-Dose Series ([facility]) 09/05/2021,11/02/2020,10/12/2020 Covid-19, Mrna, Lnp-s, Pf, B ivalent, 30 Mcg, IM, 12 yrs and above ([facility]) 07/08/2022 H1N1 2009 Influenza, IM 08/24/2009 PPD 02/13/2024,,02/16/2020,10/2017,04/02/2016,04/15/2014,06/10/20 12,06/06/2010,11/30/2008,12/09/2006 Pneumococcal Conjugate Vacc, 13 Valent (Prevnar) 06/10/2018 Pneumococcal Polysaccharide PPV23 (Pneumovax) 08/02/2019 Seasonal Influenza, PF, 6 M & above, IM , (FluLaval or Fluzone) 06/01/2020,06/10/2019,06/10/2018,06/0806/17/2018 Seasonal Influenza, Quadriva lent Hd (Fluzone Hd) 05/22/2022,05/25/2021 Seasonal Influenza, Quadriva lent, No Preserve, IM 07/03/2016 07/03/2017 Seasonal Influenza, Trivalen t, (IIV3), with Preserv, (Fluzone) 05/25/2015,07/16/2014,07/23/2013,05/10,06/03/2011,06/01/2010,05/30/20 09,07/04/2008,07/10/2007,07/09/2006 05/25/2016 TDAP (age 10 and [...] No 02/13/2024 Does the household have a [facility] source of income? (Household - for ages [...] Telephone Encounter - Chel Dugan MD - 05/24/2024 3:26 PM EDTSigned Prescriptions: Disp Refills Loratadine 10 MG Oral Tablet (Allergy Reli*90 Tab*3 Sig: Take 1 Tablet by mouth every afternoon.Authorizing Provider: CHEL DUGAN * Telephone Encounter - Vianney Jimenez LPN - 05/24/2024 2:56 PM EDT Did you pend patient's preferred pharmacy and medication before forwarding?yes Pharmacy: [facility] [address] Pending Prescriptions: Disp Refills Loratadine 10 MG Oral Tablet (Allergy Rel*90 Tab*3 Sig: Take 1 Tablet by mouth every afternoon. Last Visit: 03/08/2024 (in office), 01/09/2023 (telemedicine) Next Visit: Visit date not found If no future appointments scheduled, and last appointment is greater than a year ago, please schedule patient for a follow-up appointment Last date the medication was ordered: 12/11/2023 Is this request for a controlled substance?No Urine Drug Screen:No results found. However, due to the size of the patient record, not all encounters were searched. Please check Results Review for a complete set of results. Patient Phone Numbers Labs: Lab Results Component Value Date/Time CREAT 0.7 02/23/2024 08:05 AM CREAT 0.8 06/09/2020 08:29 AM POTASSIUM 4.2 02/23/2024 08:05 AM POTASSIUM 4.5 06/09/2020 08:29 AM TSH 2.35 05/19/2023 09:43 AM TSH 2.070 12/23/2018 12:00 AM TSH 2.15 06/05/2010 09:06 AM LDL 73 02/23/2024 08:05 AM LDL 47 03/08/2020 03:13 PM LDL NOT APPLICABLE 03/08/2020 03:13 PM ALT 39 (H) 02/23/2024 08:05 AM ALT 25 03/02/2018 08:52 AM HGBA1C 5.6 06/09/2020 08:29 AM documented in this encounter Plan of Treatment Upcoming Encounters Date Type Department Care Team (Latest Contact Info) Description 07/07/2024 11:15 AM EDT [facility] [place] [address] Caita Hernandez MD [address] [place] [id number] 07/07/2024 11:15 AM EDT - 07/07/2024 12:15 PM EDT Surgery ENDO [facility], Endoscopy Room [facility] [address] [facility] [place] [address] Catia Hernandez MD [address] [place] [address] COLONOSCOPY FLEXIBLE PROXIMAL DIAGNOSTIC 08/30/2024 10:15 AM EST Imaging Radiology [address] [facility] [place] [address] Scheduled Procedures Name Priority Associated Diagnoses Date/Ti me COLONOSCOPY FLEXIBLE PROXIMA L DIAGNOSTIC Psychogenic vomiting [...] Wellness Visit 2019 COVID-19 Vaccine ( season) 2024 06/25/2023, 07/08/2022, 09/05/2021, Additional history exists Influenza Vaccine (FLU shot) (#1) 2024 05/22/2022, 05/25/2021, 06/01/2020, Additional history exists Mammogram 08/27/2024 08/27/2023, 08/09, 09/11/2022, Additional history exists Depression Screening 02/12/2025 02/13/2024, 06/22/2015 (Discussed) Cologuard 04/25/2025 04/25/2022, 05/2022, 04/16/2022, Additional history exists DXA Scan 09/30/2025 09/30/2018 DTap/Tdap Vaccines (3 - Td or Tdap) 04/02/2026 [...] Not on filedocumented as of this encounter Advance Directives * Full Code [...] Power of Attor michi? No Care Teams Big Machine Consultant Relationship Specialty Start Date End Date Chel Dugan MD [address] [address] PCP - General Internal Medicine 03/21/24 documented as of this encounter
--- OUTSIDE RECORDS SUMMARY | 2024-06-08 06:17 | External Medical Summary | Summary of Care ---
Author Name Unknown Organization [facility] Address [address] [place] [address] Phone [phone] Care Team Providers Care Nurse Manager Name Role Phone Chel Dugan MD Primary Care Provider [phone] Reason for Visit * Reason Comments eRx-Medication Refill Encounter Details Date Type Department Care Team (Late st Contact Info) Description 05/20/2024 Refill [facility] [address] [place] [address] Chel Dugan MD [address] [place] [address] Allergies Active Allergy Reactions Criticality Noted Date Comments Pollen 11/09/2019 Nasal congestion documented as of this encounter (statuses as of 05/21/2024) Medications Medication Sig Dispensed Refills Start Date End Date Status Glucosamine-Chondro itin-Vit D3 6011-1683-017 MG-MG-UNIT PACK Take 1 Units by mouth daily. Take by mouth. 30 Each 5 06/10/2018 Active saline (OCEAN NASAL SPRAY) 0.65 % nasal sprayIndications:Al lergic rhinitis, unspecified seasonality, unspecified trigger one sprays in each nostril immediately before steroid nasal spray, or as needed for nasal dryness or congestion 1 Bottle 5 06/10/2018 Active Dextromethorphan-gu aiFENesin (MUCINEX DM) 30-600 MG TB12 Take 1 [...] scratches). Active Adult Blood Pressure Cuff Lg KitIndications:Urge incontinence of urine Check blood pressure twice [...] dario Citalopram Hydrobromide 20 MG Oral Tablet (CeleXA)Indications :Anxiety state TAKE 1 TAB BY MOUTH DAILY (DEPRESSION) 90 Tablet 3 01/09/2023 Active Depend Easy Fit UndergarmentsIndica tions:Urinary incontinence, unspecified type USE DAILY DIRECTED INCONTINENCE MEDLINE [id number] 80 Each 5 01/29/2023 Active Terbinafine HCl 1 % External Cream (LamISIL AT)Indications:Inte rtrigo Apply topically to affected area 2 times a day as needed for Other (rash). To affected area. 42 g 1 04/30/2023 Active Acetaminophen 500 MG Oral Tablet (Tylenol)Indication s:Chronic pain of right knee,Venous insufficiency,Varic ose veins of lower extremity, unspecified laterality, unspecified whether complicated take 2 tablets every 8 hours as needed for pain or fever 100 Tablet 09/05/2023 Active Quik-Sorb Underpad DIRECTED 3 Each 4 11/16/2023 Active Triamcinolone Acetonide 0.1 % External Cream (Aristocort)Indicat ions:Intertrigo APPLY TO AFFECTED AEA TWICE DAILY FOR INTERTRIGO 80 g 4 11/26/2023 Active Loratadine 10 MG Oral Tablet (Allergy Relief (Loratadine)) Take 1 Tablet by mouth every afternoon. 90 Tablet 3 12/11/2023 Active busPIRone HCl 10 MG Oral Tablet (Buspar)Indications :Fear of thunderstorms,ERIC (generalized anxiety disorder) One tab by mouth twice daily 01/02/2024 Active Famotidine 20 MG Oral Tablet (Pepcid) TAKE ONE TABLET BY MOUTH DAILY *GERD* 28 Tablet 4 01/05/2024 Active Lovastatin 20 MG Oral Tablet (Mevacor)Indication s:Dyslipidemia, goal LDL below 100 TAKE ONE TAB BY MOUTH DAILY FOR CHOLESTEROL 28 Tablet 4 01/05/2024 Active Fluticasone Propionate 50 MCG/ACT Nasal Suspension (Flonase)Indication s:Nasal congestion INSTILL 2 SPRAYS INTO EACH NOSTRIL DAILY *CONGESTION/ALLERG IES* 16 g 11 01/22/2024 Active Ammonium Lactate 12 % External Lotion (Lac-Hydrin) APPLY TOPICALLY TO DRY AREAS OF BOTH FEET AT BEDTIME *DRY SKIN* 225 g 5 02/11/2024 Active linaCLOtide 145 MCG Oral Capsule (Linzess) Take 1 Capsule by mouth daily before breakfast. 90 Capsule 3 02/13/2024 Active Mirabegron ER 25 MG Oral Tablet Extended Release 24 Hour (Myrbetriq)Indicati ons:Urge incontinence of urine Take 1 Tablet by mouth in the morning. 28 Tablet 4 03/22/2024 Active hydroCHLOROthiazide 12.5 MG Oral Capsule TAKE ONE CAPSULE BY MOUTH DAILY FOR HTN/EDEMA 28 Capsule 11 04/23/2024 Active Daily-Lobo Oral TabletIndications:R outine medical exam TAKE ONE TABLET BY MOUTH [...] Omeprazole 20 MG Oral Capsule Delayed Release (PriLOSEC)Indicatio ns:Gastroesophageal reflux disease without esophagitis TAKE ONE CAPSULE BY MOUTH DAILY 1 HOUR BEFORE THE FIRST MEALS OF THE DAY FOR GERD 28 Capsule 4 05/20/2024 Active documented as of this encounter (statuses as of 05/21/2024) Active Problems Problem Noted Date Diagnosed Date History of breast cancer 02/13/2024 Primary osteoarthritis of left knee 06/17/2017 Venous insufficiency 04/23/2012 Moderate intellectual disability 09/17/2011 Overview: ICD-10 update of inactive term Anxiety state 09/17/2011 Dyslipidemia, goal LDL below 100 documented as of this encounter (statuses as of 05/21/2024) Resolved Problems Problem Noted Date Diagnosed Date [...] as of this encounter (statuses as of 05/21/2024) Immunizations Name Administration Dates Next Due COVID-19 mRNA, LNP-s, No Pre serve, 2-Dose Series ([facility]) 09/05/2021,11/02/2020,10/12/2020 Covid-19, Mrna, Lnp-s, Pf, B ivalent, 30 Mcg, IM, 12 yrs and above ([facility]) 07/08/2022 H1N1 2009 Influenza, IM 08/24/2009 PPD [...] encounter Miscellaneous Notes * Telephone Encounter - Laxmi Lizarraga, [facility] - 05/21/2024 6:47 AM EDTRefused Prescriptions: Disp Refills Loratadine 10 MG Oral Tablet (Claritin) 28 Tab*4 Sig: TAKE ONE TABLET BY MOUTH DAILY IN THE AFTERNOON *SEASONAL ALLERGIES*Refused By: LAXMI LIZARRAGA for Refusal: Too soon documented in this encounter Plan of Treatment Upcoming Encounters Date Type Department Care Team (Latest Contact Info) Description 07/07/2024 11:15 AM EDT Hospital Encounter ENDO [facility], Endoscopy Room [facility] [address] [place] [address] Catia Hernandez MD [address] [place] [address] 07/07/2024 11:15 AM EDT - 07/07/2024 12:15 PM EDT Surgery ENDO [facility], Endoscopy Room [facility] [address] [place] [address] Catia Hernandez MD [address] [place] [id number] COLONOSCOPY FLEXIBLE PROXIMAL DIAGNOSTIC 08/30/2024 10:15 AM EST Imaging Radiology [address] [place] [address] Scheduled Procedures Name Priority Associated Diagnoses Date/Ti vt COLONOSCOPY FLEXIBLE PROXIMA L DIAGNOSTIC Psychogenic vomiting [...] Power of Attor michi? No Care Teams Nurse Manager Relationship Specialty Start Date End Date Chel Dugan MD [address] [place] [address] PCP - General Internal Medicine 03/21/24 documented as of this encounter
--- OUTSIDE RECORDS SUMMARY | 2024-06-08 06:17 | External Medical Summary | Summary of Care ---
Author Name Unknown Organization [facility] Address [address] [place] [address] Phone [phone] Care Team Providers Care Air Purifier Servicer Name Role Phone Chel Dugan MD Primary Care Provider [phone] Reason for Visit * Reason Onset Date Comments Advice 04/28/2024 Encounter Details Date Type Department Care Team (Late st Contact Info) Description 04/28/2024 Telephone [facility] [address] [place] [address] Chel Dugan MD [address] [place] [address] Advice Allergies Active Allergy Reactions Criticality Noted Date Comments Pollen 11/09/2019 Nasal congestion documented as of this encounter (statuses as of 04/29/2024) Medications Medication Sig Dispensed Refills Start Date End Date Status Glucosamine-Chond roitin-Vit D3 3066-1951-778 MG-MG-UNIT PACK Take 1 Units by mouth [...] unspecified type USE DAILY DIRECTED INCONTINENCE MEDLINE [id number] 80 Each 5 01/29/2023 Active Terbinafine HCl [...] FOR INTERTRIGO 80 g 4 11/26/2023 Active Omeprazole 20 MG Oral Capsule Delayed Release (PriLOSEC)Indicat ions:Gastroesopha geal reflux disease without esophagitis TAKE ONE CAPSULE BY MOUTH DAILY 1 HOUR BEFORE THE FIRST MEALS OF THE DAY FOR GERD 28 Capsule 4 12/05/2023 Active Loratadine 10 MG Oral Tablet (Allergy [...] oz per day 4 Tablet 04/29/2024 Active Bisacodyl 5 MG Oral Tablet Delayed Release (Dulcolax) Take according to colonoscopy prep instructions. 4 Tablet 06/17/2022 4 Discontinue d(Refill) documented as of this encounter (statuses as of 04/29/2024) Active Problems Problem Noted Date Diagnosed Date History of breast cancer 02/13/2024 Primary osteoarthritis of left knee 06/17/2017 Venous insufficiency 04/23/2012 Moderate intellectual disability 09/17/2011 Overview: ICD-10 update of inactive term Anxiety state 09/17/2011 Dyslipidemia, goal LDL below 100 documented as of this encounter (statuses as of 04/29/2024) Resolved Problems Problem Noted Date Diagnosed Date [...] as of this encounter (statuses as of 04/29/2024) Immunizations Name Administration Dates Next Due COVID-19 mRNA, LNP-s, No Pre serve, 2-Dose Series ([facility]) 09/05/2021,11/02/2020,10/12/2020 Covid-19, Mrna, Lnp-s, Pf, B ivalent, 30 Mcg, IM, 12 yrs and above ([facility]) 07/08/2022 H1N1 2009 Influenza, IM 08/24/2009 PPD [...] No 02/13/2024 Does the household have a [facility] source of income? (Household - for [...] Telephone Encounter - Chel Dugan MD - 04/29/2024 9:16 AM EDT Would like to try higher dose linzess , sent 290 mcg daily use But if might not get approval For now, please take dulcolax , sent #4 , take is as instructed * Telephone Encounter - Rena Christian OSA - 04/28/2024 11:56 AM EDT Reason for patient's call: Carisa from [employer] calling in with update on patient not having bowel movent and requesting prescription to be sent per protocol. Please call and advise. documented in this encounter Plan of Treatment Upcoming Encounters Date Type Department Care Team (Latest Contact Info) Description 07/07/2024 11:15 AM EDT Hospital Encounter ENDO [facility], Endoscopy Room [facility] [address] [place] [address] Catia Hernandez MD [address] [place] [address] 07/07/2024 11:15 AM EDT - 07/07/2024 12:15 PM EDT Surgery ENDO [facility], Endoscopy Room [facility] [address] [place] [address] Catia Hernandez MD [address] [place] [address] COLONOSCOPY FLEXIBLE PROXIMAL DIAGNOSTIC 08/30/2024 10:15 AM EST Imaging Radiology [facility] [facility] [address] [place] [address] Scheduled Procedures Name Priority Associated Diagnoses Date/Ti [...] 02/12/2025 02/13/2024, 06/22/2015 (Discussed) Cologuard 04/25/2025 04/25/2022, 08/05/2022, 04/16/2022, Additional history exists DXA Scan 09/30/2025 [...] Power of Attor michi? No Care Teams Air Purifier Servicer Relationship Specialty Start Date End Date Chel Dugan MD [address] [facility] [place] [place] [address] PCP - General Internal Medicine 03/21/24 documented as of this encounter
--- OUTSIDE RECORDS SUMMARY | 2024-06-08 06:17 | External Medical Summary | Summary of Care ---
Author Name Unknown Organization [facility] Address [address] [place] [address] Phone [phone] Care Team Providers Care Laboratory Tester Name Role Phone Chel Dugan MD Primary Care Provider [phone] Reason for Visit * Reason Onset Date Comments Advice 04/28/2024 Encounter Details Date Type Department Care Team (Late st Contact Info) Description 04/28/2024 Telephone [facility] [address] [place] [address] Chel Dugan MD [address] [place] [address] Advice Allergies Active Allergy Reactions Criticality Noted Date Comments Pollen 11/09/2019 Nasal congestion documented as of this encounter (statuses as of 04/29/2024) Medications Medication Sig Dispensed Refills Start Date End Date Status Glucosamine-Chond roitin-Vit D3 3734-5647-362 MG-MG-UNIT PACK Take 1 Units by mouth [...] unspecified type USE DAILY DIRECTED INCONTINENCE MEDLINE [id number] 80 Each 5 01/29/2023 Active Terbinafine HCl [...] mRNA, LNP-s, No Pre serve, 2-Dose Series ([facility]) 09/05/2021,11/02/2020,10/12/2020 Covid-19, Mrna, Lnp-s, Pf, B ivalent, 30 Mcg, IM, 12 yrs and above ([facility]) 07/08/2022 H1N1 2009 Influenza, IM 08/24/2009 Hepatitis B, 20+ yrs 05/22/2004,2003,01/26 PPD 02/13/2024,,02/16/2020,070 10/2017,04/02/2016,04/15/2014,06/10/20 12,06/06/2010,11/30/2008,12/09/2006,0 12/11/2004,01/26/2003,06/12/2001,07/25 Pneumococcal Conjugate Vacc, 13 Valent (Prevnar) 06/10/2018 Pneumococcal Polysaccharide PPV23 (Pneumovax) 08/02/2019 Seasonal Influenza, PF, 6 M & above, IM , (FluLaval or Fluzone) 06/01/2020,06/10/2019,06/10/2018,06/0806/17/2018 Seasonal Influenza, Quadriva lent Hd (Fluzone Hd) 05/22/2022,05/25/2021 Seasonal Influenza, Quadriva lent, No Preserve, IM 07/03/2016 07/03/2017 Seasonal Influenza, Split, I IV3, With Preserve, Inj 05/25/2015,07/16/2014,07/23/2013,05/10,06/03/2011,06/01/2010,05/30/20 09,07/04/2008,07/10/2007,07/09/2006,1 ,07/19/2003,08/12/2001,07/0505/25/2016 TD - Tetanus/Diptheria (ADULT) 07/11/1997 TDAP (age 10 and older)([facility]) 04/02/2016 TDAP, [...] encounter Miscellaneous Notes * Telephone Encounter - Vianney Jimenez LPN - 04/29/2024 11:44 AM EDT Spoke with caregiver at [employer] to give them the message below. Caregiver stated understanding. * Telephone Encounter - Chel Dugan MD [...] ENDO [facility], Endoscopy Room [facility] [address] [place] [address] Catia Hernandez MD [address] [place] [id number] 07/07/2024 11:15 AM EDT - 07/07/2024 12:15 PM EDT Surgery ENDO [facility], Endoscopy Room [facility] [address] [place] [phone] Catia Hernandez MD [address] [place] [id number] COLONOSCOPY FLEXIBLE PROXIMAL DIAGNOSTIC 08/30/2024 10:15 AM EST Imaging Radiology [facility] [facility] [address] [place] [address] Scheduled Procedures Name Priority Associated Diagnoses Date/Ti [...] Sigmoidoscopy 1998 Fecal Occult Blood Test 05/16/2018 05/16/20, 04/19/2016, 02/15/2015, Additional history exists Adult Wellness [...] Power of Attor michi? No Care Teams Laboratory Tester Relationship Specialty Start Date End Date Chel Dugan MD [address] [place] [address] PCP - General Internal Medicine 03/21/24 documented as of this encounter
--- OUTSIDE RECORDS SUMMARY | 2024-06-08 06:17 | External Medical Summary | Summary of Care ---
Author Name Unknown Organization [facility] Address [address] [place] [address] Phone [phone] Care Team Providers Care Solution Design And Analysis Manager Name Role Phone Chel Dugan MD Primary Care Provider [phone] Reason for Visit * Reason Comments eRx-Medication Refill Encounter Details Date Type Department Care Team (Late st Contact Info) Description 05/20/2024 Refill [facility] [address] [place] [address] Kelli Landaverde, [address] [place] [address] Gastroesophageal reflux disease without esophagitis Allergies Active Allergy Reactions Criticality Noted Date Comments Pollen 11/09/2019 Nasal congestion documented as of this encounter (statuses as of 05/20/2024) Medications Medication Sig Dispensed Refills Start Date End Date Status Glucosamine-Chond roitin-Vit D3 3588-8906-015 MG-MG-UNIT PACK Take 1 Units by mouth [...] unspecified type USE DAILY DIRECTED INCONTINENCE MEDLINE [id number] 80 Each 5 3 Active Terbinafine HCl [...] FOR INTERTRIGO 80 g 4 4 Active Loratadine 10 MG Oral [...] DAILY *SUPPLEMENT* 28 Tablet 11 4 Active Linzess 290 MCG Oral Capsule (linaCLOtide) Take 1 Capsule by mouth daily before breakfast. 90 Capsule 3 4 Active Bisacodyl 5 MG Oral Tablet Delayed Release (Dulcolax) Take 2 tabs and then ok to repeat 1-2 tabs in 24 hours. Water intake minimum 60-80 oz per day 4 Tablet 4 Active Omeprazole 20 MG Oral Capsule Delayed Release (PriLOSEC)Indicat ions:Gastroesopha geal reflux disease without esophagitis TAKE ONE CAPSULE BY MOUTH DAILY 1 HOUR BEFORE THE FIRST MEALS OF THE DAY FOR GERD 28 Capsule 4 4 Active Omeprazole 20 MG Oral Capsule Delayed Release (PriLOSEC)Indicat ions:Gastroesopha geal reflux disease without esophagitis TAKE ONE CAPSULE BY MOUTH DAILY 1 HOUR BEFORE THE FIRST MEALS OF THE DAY FOR GERD 28 Capsule 4 4 05/20/20 24 Discontinued documented as of this encounter (statuses as of 05/20/2024) Active Problems Problem Noted Date Diagnosed Date History of breast cancer 02/13/2024 Primary osteoarthritis of left knee 06/17/2017 Venous insufficiency 04/23/2012 Moderate intellectual disability 09/17/2011 Overview: ICD-10 update of inactive term Anxiety state 09/17/2011 Dyslipidemia, goal LDL below 100 documented as of this encounter (statuses as of 05/20/2024) Resolved Problems Problem Noted Date Diagnosed Date [...] EXAM 01/02/2005 015 FEM STRESS INCONTINENCE 04/09/2004 05/0 01/2015 Urinary frequency 04/09/2004 01/10/2015 Cough 04/09/2004 01/10/2015 Anxiety state 01/31/2004 09/17/2011 Allergic rhinitis 03/31/2002 09/17/2011 Hearing loss 03/31/2002 01/10/2015 ABN PAP SMEAR-ENDOMETRIAL CELLS 06/17/2000 01/10/2015 HYPERGLYCEMIA 06/09/2000 01/10/2015 MOD MENTAL RETARDATION 02/12 documented as of this encounter (statuses as of 05/20/2024) Immunizations Name Administration Dates Next Due COVID-19 mRNA, LNP-s, No Pre serve, 2-Dose Series ([employer]) 09/05/2021,11/02/2020,10/12/2020 Covid-19, Mrna, Lnp-s, Pf, B ivalent, 30 Mcg, IM, 12 yrs and above (Pfizer) 07/08/2022 H1N1 2009 Influenza, IM 08/24/2009 PPD 02/13/2024,,02/16/2020,0710/2017,04/02/2016,04/15/2014,06/10/20 12,06/06/2010,11/30/2008,12/09/2006 Pneumococcal Conjugate Vacc, 13 Valent (Prevnar) [...] encounter Miscellaneous Notes * Telephone Encounter - Cesar Kevin [facility] - 05/20/2024 7:10 PM EDT Signed Prescriptions: Disp Refills Omeprazole 20 MG Oral Capsule Delayed Rele*28 Cap*4 Sig: TAKE ONE CAPSULE BY MOUTH DAILY 1 HOUR BEFORE THE FIRST MEALS OF THE DAY FOR GERDAuthorizing Provider: Adolfo DUGAN User: CESAR KEVIN documented in this encounter Plan of Treatment Upcoming Encounters Date Type Department Care Team (Latest Contact Info) Description 07/07/2024 11:15 AM EDT Hospital Encounter ENDO [facility], Endoscopy Room [facility] [address] [facility] [place] [phone] Catia Hernandez MD [address] [place] [id number] 07/07/2024 11:15 AM EDT - 07/07/2024 12:15 PM EDT Surgery ENDO [facility], Endoscopy Room [facility] [address] [facility] [place] [phone] Catia Hernandez MD [address] [place] [id number] COLONOSCOPY FLEXIBLE PROXIMAL DIAGNOSTIC 08/30/2024 10:15 AM EST Imaging Radiology [address] [place] [address] Scheduled Procedures Name Priority Associated Diagnoses Date/Ti [...] as of this encounter Visit Diagnoses Diagnosis Gastroesophageal reflux disease without esophagitis Esophageal reflux Psychogenic vomiting with nausea Gastroesophageal reflux disease [...] Power of Attor michi? No Care Teams Solution Design And Analysis Manager Relationship Specialty Start Date End Date Chel Dugan MD [address] [place] [address] PCP - General Internal Medicine 03/21/24 documented as of this encounter
--- OUTSIDE RECORDS SUMMARY | 2024-06-08 06:17 | External Medical Summary | Summary of Care ---
Author Name Unknown Organization [facility] Address [address] [place] [address] Phone [phone] Care Team Providers Care Presser Hand Name Role Phone Chel Dugan MD Primary Care Provider [phone] Encounter Details Date Type Department Care Team (Late st Contact Info) Description 03/22/2024 Telephone [facility] [address] [place] [address] Chel Dugan MD [address] [place] [address] Allergies Active Allergy Reactions Criticality Noted Date Comments Pollen 11/09/2019 Nasal congestion documented as of this encounter (statuses as of 05/06/2024) Medications Medication Sig Dispensed Refills Start Date End Date Status Glucosamine-Luis Alberto droitin-Vit D3 3984-8950-584 MG-MG-UNIT PACK Take 1 Units by mouth daily. Take by mouth. 30 Each 5 8 Active saline (OCEAN NASAL SPRAY) 0.65 % nasal sprayIndications :Allergic rhinitis, unspecified seasonality, unspecified trigger one sprays in each nostril immediately before steroid nasal spray, or as needed for nasal dryness or congestion 1 Bottle 5 8 Active Dextromethorphan -guaiFENesin (MUCINEX DM) 30-600 MG TB12 Take 1 [...] scratches). Active Adult Blood Pressure Cuff Lg KitIndications:U rge incontinence of urine Check blood pressure twice [...] dario Citalopram Hydrobromide 20 MG Oral Tablet (CeleXA)Indicati ons:Anxiety state TAKE 1 TAB BY MOUTH DAILY (DEPRESSION) 90 Tablet 3 3 Active Depend Easy Fit UndergarmentsInd ications:Urinary incontinence, unspecified type USE DAILY DIRECTED INCONTINENCE MEDLINE [id number] 80 Each 5 3 Active Terbinafine HCl 1 % External Cream (LamISIL AT)Indications:I ntertrigo Apply topically to affected area 2 times a day as needed for Other (rash). To affected area. 42 g 1 3 Active Acetaminophen 500 MG Oral Tablet (Tylenol)Indicat ions:Chronic pain of right knee,Venous insufficiency,Va ricose veins of lower extremity, unspecified laterality, unspecified whether complicated take 2 tablets every 8 hours as needed for pain or fever 100 Tablet 3 Active Quik-Sorb Underpad DIRECTED 3 Each 4 4 Active Triamcinolone Acetonide 0.1 % External Cream (Aristocort)Nury cations:Intertri go APPLY TO AFFECTED AEA TWICE DAILY FOR INTERTRIGO 80 g 4 4 Active Omeprazole 20 MG Oral Capsule Delayed Release (PriLOSEC)Indica tions:Gastroesop hageal reflux disease without esophagitis TAKE ONE CAPSULE BY MOUTH DAILY 1 HOUR BEFORE THE FIRST MEALS OF THE DAY FOR GERD 28 Capsule 4 4 Active Loratadine 10 MG Oral Tablet (Allergy Relief (Loratadine)) Take 1 Tablet by mouth every afternoon. 90 Tablet 3 4 Active busPIRone HCl 10 MG Oral Tablet (Buspar)Indicati ons:Fear of thunderstorms,GA D (generalized anxiety disorder) One tab by mouth twice daily 4 Active Famotidine 20 MG Oral Tablet (Pepcid) TAKE ONE TABLET BY MOUTH DAILY *GERD* 28 Tablet 4 4 Active Lovastatin 20 MG Oral Tablet (Mevacor)Indicat ions:Dyslipidemi a, goal LDL below 100 TAKE ONE TAB BY MOUTH DAILY FOR CHOLESTEROL 28 Tablet 4 4 Active Fluticasone Propionate 50 MCG/ACT Nasal Suspension (Flonase)Indicat ions:Nasal congestion INSTILL 2 SPRAYS INTO EACH NOSTRIL DAILY *CONGESTION/RANDALL RGIES* 16 g 11 4 Active Ammonium Lactate [...] to colonoscopy prep instructions. 4 Tablet 2 04/29/20 24 Discontinued(Re fill) Daily-Lobo Oral TabletIndication s:Routine medical exam TAKE ONE TABLET BY MOUTH DAILY *SUPPLEMENT* 28 Tablet 5 4 04/23/20 24 Discontinued hydroCHLOROthiaz lou 12.5 MG Oral Capsule (Hydrodiuril) TAKE ONE CAPSULE BY MOUTH DAILY FOR HTN/EDEMA 28 Capsule 4 4 04/23/20 24 Discontinued documented as of this encounter (statuses as of 05/06/2024) Active Problems Problem Noted Date Diagnosed Date History of breast cancer 02/13/2024 Primary osteoarthritis of left knee 06/17/2017 Venous insufficiency 04/23/2012 Moderate intellectual disability 09/17/2011 Overview: ICD-10 update of inactive term Anxiety state 09/17/2011 Dyslipidemia, goal LDL below 100 documented as of this encounter (statuses as of 05/06/2024) Resolved Problems Problem Noted Date Diagnosed Date [...] EXAM 01/02/2005 015 FEM STRESS INCONTINENCE 04/09/2004 0501/2015 Urinary frequency 04/09/2004 01/10/2015 Cough 04/09/2004 01/10/2015 Anxiety state 01/31/2004 09/17/2011 Allergic rhinitis 03/31/2002 09/17/2011 Hearing loss 03/31/2002 01/10/2015 ABN PAP SMEAR-ENDOMETRIAL CELLS 06/17/2000 01/10/2015 HYPERGLYCEMIA 06/09/2000 01/10/2015 MOD MENTAL RETARDATION 02/12 documented as of this encounter (statuses as of 05/06/2024) Immunizations Name Administration Dates Next Due COVID-19 mRNA, LNP-s, No Pre serve, 2-Dose Series ([employer]) 09/05/2021,11/02/2020,10/12/2020 Covid-19, Mrna, Lnp-s, Pf, B ivalent, 30 Mcg, IM, 12 yrs and above ([employer]) 07/08/2022 H1N1 2009 Influenza, IM 08/24/2009 PPD [...] No 02/13/2024 Does the household have a [facility] source of income? (Household - for ages [...] encounter Miscellaneous Notes * Telephone Encounter - Geovanna Vega LPN - 04/01/2024 11:49 AM EDT Was this form completed? * Telephone Encounter - Dulce Rodriguez OSA - 03/22/2024 12:25 PM EDT 03/22/24 Rec Authorization request from Medicare for pt that needs to be completed. Placed in provider's mail bin today. documented in this encounter Plan of Treatment Upcoming Encounters Date Type Department Care Team (Latest Contact Info) Description 07/07/2024 11:15 AM EDT Hospital Encounter [facility]O [facility], Endoscopy Room [facility] [address] [place] [phone] Catia Hernandez MD [address] [place] [phone] 07/07/2024 11:15 AM EDT - 07/07/2024 12:15 PM EDT Surgery ENDO [facility], Endoscopy Room [facility] [address] [place] [phone] Catia Hernandez MD [address] [place] [id number] COLONOSCOPY FLEXIBLE PROXIMAL DIAGNOSTIC 08/30/2024 10:15 AM EST Imaging Radiology [address] [place] [address] Scheduled Procedures Name Priority Associated Diagnoses Date/Ti [...] Power of Attor michi? No Care Teams Presser Hand Relationship Specialty Start Date End Date Chel Dugan MD [address] [place] [address] PCP - General Internal Medicine 03/21/24 documented as of this encounter
--- NOTE | 2024-06-08 07:03 | XRay Report ---
XR pelvis 1-2V routine HISTORY: 69 years-old Female trauma acute pelvic pain status post trauma COMPARISON: None TECHNIQUE: AP view of the pelvis FINDINGS: Mild osteoarthritis of the hips. No acute fracture, dislocation or avascular necrosis. Mild to modera te degeneration of the SI joints. IMPRESSION: No acute fracture or dislocation. ACT 112: Negative or not required by law. The above report was generated using voice recognition software. It may contain grammatical, syntax o r spelling errors. Electronically signed by: Nico Youngblood M.D. 06/08/2024 7:01 AM
--- NOTE | 2024-06-08 07:18 | XRay Report ---
XR chest 1V portable CLINICAL HISTORY: Trauma. COMPARISON STUDY: Chest radiograph February 26, 2024. FINDINGS: Lung volumes are normal. Lungs are clear. There is no pneumothorax or pleural effusion. Mil d cardiomegaly. Mediastinal contours are normal. There is no evidence for pulmonary edema. There is a n old left eighth rib fracture. IMPRESSION: No acute cardiopulmonary findings. ACT 112: Negative or not required by law. Electronically signed by: Ryan Jane M.D. 06/08/2024 7:17 AM
--- NOTE | 2024-06-08 07:24 | XRay Report ---
XR shoulder LT min 2V routine HISTORY: 69 years-old Female fall on shoulder/ecchymosis acute left shoulder pain COMPARISON: Chest radiograph 06/07/2024 TECHNIQUE: 3 views of the left shoulder FINDINGS: Mild glenohumeral width moderate to severe AC joint osteoarthritis. Chronic left-sided rib fractures. No acute fracture, dislocation or osseous erosion. IMPRESSION: No acute fracture or dislocation. ACT 112: Negative or not required by law. The above report was generated using voice recognition software. It may contain grammatical, syntax o r spelling errors. Electronically signed by: Nico Youngblood M.D. 06/08/2024 7:22 AM
[2024-06-08] MEDS: LOVASTATIN 20 MG TAB PO SCH (08:21)
[2024-06-08] MEDS: FAMOTIDINE 20 MG TAB PO SCH (08:21)
[2024-06-08] MEDS: busPIRone 5 MG TAB PO SCH (08:21)
[2024-06-08] MEDS: PANTOprazole 40 MG TAB PO SCH (08:22)
[2024-06-08] MEDS: VIBEGRON 75 MG TAB PO SCH (08:22)
[2024-06-08] MEDS: FLUoxetine HCL 20 MG CAP PO SCH (08:22)
[2024-06-08] MEDS: LINACLOTIDE 145 MCG CAPSULE PO SCH (08:23)
[2024-06-08] MEDS: FLUTICASONE PROPIONATE NA SPR 16 GM BTL SCH (08:33)
--- NOTE | 2024-06-08 08:36 | Hospitalist Progress Note ---
Date of Service June 08, 2024 Assessment & Plan (1) Fall: (2) Facial laceration: (3) CHI (closed head injury): (4) Hyponatremia: Plan Rosmery is a 69F w/ PMH of moderate intellectual disability, HLD, anxiety, GERD, HTN, osteoarthritis, migraines, and glaucoma who presents from her nursing home due to unwitnessed fall at home. Hyponatremia - Suspect poor solute intake - 128 upon arrival; improved to 132 s/p 500cc NSS in ED - Does have chronic hyponatremia to 133-134 Unwitnessed Fall at Home Intellectual Disability, baseline - Mechanical fall at home this evening Fell while turning with walker and struck left brow and left shoulder Hx of ambulatory dysfunction requiring PT Caregiver at nursing home reports frequent falls, cause unknown - R/o neurologic, cardiac, metabolic causes of fall before d/c C-spine, CXR, face and head CT, pelvis & shoulder x-ray all benign; only acute finding = L periorbital soft tissue swelling Hyponatremia improved, no concern for hypoglycemia or hypotension EKG and TTE normal - PT/OT evaluations; ideally home-health PT after d/c Facial Laceration - Hemostasis obtained w/o sutures - No facial fractures, pain w/ eye movement, or hemotympanum - Continue supportive measures Chronic Conditions: - Anxiety - continue Buspirone and Fluoxetine - GERD - continue Famotidine and omeprazole - HTN - continue HCTZ - HLD - continue statin - Glaucoma - continu Lantoprost Code: Full Diet: Reg, HH DVT: SCD/Ambulation Dispo: Med pending PT/OT evals Admission and Anticipated Discharge Date Admission Date: June 08, 2024 Supervising Physician Co-Signing Physician Notes Attending attestation Pt seen and examined in concert with Dr. Nettles. In agreement with the documented findings as noted in the resident documentation with any exceptions or additions as noted here. Difficult to obtain meaningful history in the setting of chronic intellectual disability. Patient reports ongoing upper extremity pain at the location of ecc hymosis. She reports that she remembers the fall ("onto the rump"). On examination, S1/S2 nl RRR no MCG. CTAB. Abd NT/ND BS+ve. Visible ecchymosis of the upper extremities and face without worsening pain/TTP reported. CN II - XII grossly intact with limited examination including orientation. Unwitnessed fall with concern for LOC in the setting of intellectual disability - team to contact nursing home for baseline status and other history as available. CT head without bleed or signs of acute CVA and no symptoms reported. Evaluate for spontaneous LOC with echocardiogram, telemetry monitoring. EKG reviewed previously. CT scan as noted, will defer MRI without further symptoms. PT/OT evaluation. Hyponatremia - no apparent significant change in status and improved with hydration. Encourage POI and monitor BMP daily Else see resident documentation as noted. Corina Botello does not have her dentures in and is difficult to understand. She seems reluctant to say if she is experiencing any pain. When asked about her fall, she mentioned going to wash her hands, using her walker, and turning too fast. Spoke to her nurse who says she is difficult to understand, with or without her dentures, and is generally reluctant to answer questions because she wants to say what the person wants to hear. Nurse also reports Rosmery likes to ask about people's families and will repeat "you're mad at me" if questioned repeatedly when not understood. Staff at her nursing home went to get her medicine and heard a "thud" before they could return to her. Nurse reports they believe she took her walker into the bathroom and then tried to back out/turn to leave the bathroom too quickly, and thus fell. She has frequent falls with no obvious cause, including falls right after being released from the hospital, immediately upon standing, and even while using her walker. The nurse also noted surprise at how swollen Rosmery looks, on both legs and all over her face, and questioned if this is due to the IVF. Physical Exam Physical Exam: Gen: [id number], difficult to understand without dentures, no apparent distress HEENT: bruise on L brow, no neck stiffness, dry mucous membranes CV: RRR, no m/r/g, S1/S2 normal Resp: CTAB, no respiratory distress Abd: Soft, NT/ND, +BS Skin: bruise on L shoulder, no rashes or other lesions Psych: Mod intellectual disability Results & Data Results & Data Vital Signs (Past 12 Hours) Vital Signs Pulse Pulse Resp BP Pulse Ox O2 Del Method 06/08/24 03:06 64 06/08/24 03:05 63 18 115/59 L 98 Room Air 10/01/24 02:00 67 18 128/79 96 Room Air 06/08/24 00:23 67 06/08/24 00:00 73 18 138/75 98 Room Air 06/08/24 00:00 73 18 138/75 98 Room Air 06/07/24 23:00 69 18 141/62 H 98 Room Air 06/07/24 22:00 71 19 143/62 H 99 Room Air 06/07/24 21:12 74 20 136/58 L 100 Room Air Laboratory Results Abnormal lab results 06/07/24 06/07/24 06/08/24 Range/Units 20:35 20:42 00:36 RBC (4.20-5.40) M/uL Hgb (12.0-16.0) g/dl Hct (37.0-47.0) % MPV 9.1 L (9.4-12.4) fL Chase # (Auto) 0.80 H (0.11-0.59) K/uL POC Sodium 128 L (135-144) mmol/L Sodium 128 L 129 L (136-145) mmol/L POC Chloride 93 L (101-112) mmol/L Chloride 94 L 97 L (98-107) mmol/L POC Total CO2 23 L (24-31) mmol/L Creatinine 0.59 L (0.6-1.2) mg/dl BUN/Creatinine Ratio 24.6 H 22.0 H (10-20) Glucose 124 H 113 H (70-99(Fasting)) mg/dl POC Glucose (other) 125 H (70-99) mg/dl Alkaline Phosphatase 155 H (34-104) U/L Total Protein (6.0-8.3) gm/dl Globulin 2.3 L (2.5-4.0) gm/dl 06/08/24 Range/Units 04:40 RBC 3.87 L (4.20-5.40) M/uL Hgb 11.7 L (12.0-16.0) g/dl Hct 33.5 L (37.0-47.0) % MPV 9.1 L (9.4-12.4) fL Chase # (Auto) (0.11-0.59) K/uL POC Sodium (135-144) mmol/L Sodium 132 L (136-145) mmol/L POC Chloride (101-112) mmol/L Chloride (98-107) mmol/L POC Total CO2 (24-31) mmol/L Creatinine 0.53 L (0.6-1.2) mg/dl BUN/Creatinine Ratio 20.8 H (10-20) Glucose (70-99(Fasting)) mg/dl POC Glucose (other) (70-99) mg/dl Alkaline Phosphatase 132 H (34-104) U/L Total Protein 5.4 L (6.0-8.3) gm/dl Globulin 1.9 L (2.5-4.0) gm/dl Diagnostic Findings Cervical Spine CT 06/07/24 20:33 Exam(s): CT C SPINE EXAM: CT Cervical Spine Without Intravenous Contrast CLINICAL HISTORY: Reason for exam: Trauma. TECHNIQUE: Axial computed tomography images of the cervical spine without intravenous contrast. CTDI is 26.96 mGy and DLP is 156.1 mGy-cm. Automated exposure control was utilized for the study. A dose lowering technique was utilized adhering to the principles of ALARA. COMPARISON: No relevant prior studies available. FINDINGS: The vertebral body heights are maintained. The craniocervical junction is intact. The atlanto-dens interval is maintained. The dens is intact. There is no spondylolisthesis. Multilevel cervical spondylosis and degenerative disc disease. Straightening of the cervical lordosis. The unenhanced neck soft tissues are grossly unremarkable. The visualized lung apices are grossly clear. IMPRESSION: No acute fracture or subluxation of the cervical spine. Electronically signed by: Tristin Chris MD 06/07/24 22:44 PM Chest X-Ray 06/07/24 20:33 XR chest 1V portable CLINICAL HISTORY: Trauma. COMPARISON STUDY: Chest radiograph February 26, 2024. FINDINGS: Lung volumes are normal. Lungs are clear. There is no pneumothorax or pleural effusion. Mild cardiomegaly. Mediastinal contours are normal. There is no evidence for pulmonary edema. There is an old left eighth rib fracture. IMPRESSION: No acute cardiopulmonary findings. ACT 112: Negative or not required by law. Electronically signed by: Ryan Jane M.D. 06/08/2024 7:[address] 06/07/24 20:33 Exam(s): CT FACIAL Without Contrast EXAM: CT Maxillofacial Without Intravenous Contrast CLINICAL HISTORY: Reason for exam: Trauma. TECHNIQUE: Axial computed tomography images of the face without intravenous contrast. CTDI is 38.17 mGy and DLP is 624.41 mGy-cm. Automated exposure control was utilized for the study. A dose lowering technique was utilized adhering to the principles of ALARA. COMPARISON: No relevant prior studies available. FINDINGS: The mandible is intact. Intact maxillary alveolus. The orbital rims and floors are intact. The intraorbital contents are grossly unremarkable. Intact nasal bones, nasal septum, and maxillary spines. LEFT periorbital soft tissue swelling. The zygomatic arches and pterygoid processes are intact. IMPRESSION: 1. No facial bone fracture. 2. LEFT periorbital soft tissue swelling. Electronically signed by: Tristin Chris MD 06/07/24 22:[address] 06/07/24 20:33 Exam(s): CT HEAD Without Contrast EXAM: CT Head Without Intravenous Contrast CLINICAL HISTORY: Reason for exam: Trauma. TECHNIQUE: Axial computed tomography images of the head/brain without intravenous contrast. CTDI is 38.17 mGy and DLP is 624.41 mGy-cm. Automated exposure control was utilized for the study. A dose lowering technique was utilized adhering to the principles of ALARA. COMPARISON: Prior head CT from February 26, 2024. FINDINGS: This study is limited secondary to motion artifact. Brain: Unremarkable. No hemorrhage. No significant white matter disease. No edema. Ventricles: Unremarkable. No ventriculomegaly. Bones/joints: Incomplete fusion of the posterior ring of C1. No acute fracture. Soft tissues: Mild soft tissue swelling around the lateral left orbit and forehead. Sinuses: Unremarkable as visualized. No acute sinusitis. Mastoid air cells: Unremarkable as visualized. No mastoid effusion. IMPRESSION: No evidence of acute intracranial pathology. Electronically signed by: Bessy Greene MD 06/07/24 23:09 PM Pelvis X-Ray 06/07/24 20:33 XR pelvis 1-2V routine HISTORY: 69 years-old Female trauma acute pelvic pain status post trauma COMPARISON: None TECHNIQUE: AP view of the pelvis FINDINGS: Mild osteoarthritis of the hips. No acute fracture, dislocation or avascular necrosis. Mild to moderate degeneration of the SI joints. IMPRESSION: No acute fracture or dislocation. ACT 112: Negative or not required by law. The above report was generated using voice recognition software. It may contain grammatical, syntax or spelling errors. Electronically signed by: Nico Youngblood M.D. 06/08/2024 7:01 AM Shoulder X-Ray 06/08/24 00:47 XR shoulder LT min 2V routine HISTORY: 69 years-old Female fall on shoulder/ecchymosis acute left shoulder pain COMPARISON: Chest radiograph 06/07/2024 TECHNIQUE: 3 views of the left shoulder FINDINGS: Mild glenohumeral width moderate to severe AC joint osteoarthritis. Chronic left-sided rib fractures. No acute fracture, dislocation or osseous erosion. IMPRESSION: No acute fracture or dislocation. ACT 112: Negative or not required by law. The above report was generated using voice recognition software. It may contain grammatical, syntax or spelling errors. Electronically signed by: Nico Youngblood M.D. 06/08/2024 7:22 AM Resident Activity Tracking Resident Involvement: Resident Care Provided Care Provided: Adult Hospital Medicine (1) Fall Encounter type: initial encounter Qualified Code(s): W19.XXXA - Unspecified fall, initial encounter (2) Facial laceration Encounter type: initial encounter Qualified Code(s): S01.81XA - Laceration without foreign body of other part of head, initial encounter (3) CHI (closed head injury) Encounter type: initial encounter Qualified Code(s): S09.90XA - Unspecified injury of head, initial encounter
[2024-06-08] MEDS ORDERED: hydroCHLOROthiazide 25 MG TAB PO SCH (09:00)
[2024-06-08] MEDS: bisacodyL 5 MG TABEC PO SCH (09:23)
--- NOTE | 2024-06-08 10:54 | Electrocardiogram Report ---
Test Reason : Blood Pressure : */* mmHG Vent. Rate : 74 BPM Atrial Rate : 74 BPM P-R Int : 152 ms QRS Dur : 82 ms QT Int : 430 ms P-R-T Axes : 33 32 56 degrees QTcB Int : 477 ms Poor data quality, interpretation may be adversely affected Normal sinus rhythm Normal ECG When compared with ECG of 25-May-2022 19:59, T wave amplitude has increased in Anterior leads Confirmed by Justin Castellanos ([id number]) on 06/08/2024 10:54:28 AM Referred By: REFERRED SELF Confirmed By: Justin Castellanos
--- NOTE | 2024-06-08 16:19 | XCELERA ---
[id number]
[2024-06-08] MEDS: MELATONIN 3 MG TAB PO SCH (20:43)
[2024-06-08] MEDS: LORATADINE 10 MG TAB PO SCH (20:52)
[2024-06-08] MEDS: LATANOPROST 0.005% OP SOLN 2.5 ML BTL OP SCH (21:14)
--- NOTE | 2024-06-09 07:08 | Discharge Summary ---
Date of Service June 09, 2024 Admission HPI Per Admitting Provider Rosmery is a 69F w/ PMH of moderate intellectual disability, HLD, anxiety, GERD, HTN, osteoarthritis, migraines, and glaucoma who presents from her shelter due to unwitnessed fall at home. ED Course: Zofran, Tylenol, 500cc NSS Patient seen with caregiver at bedside. Caregiver notes that she was helping the patient get ready for bed and had left the room to grab her night time medications, during this time, patient ambulated from between the bathroom and her bed with her walker and somehow slipped and fell, unwitnessed. Patient notes that 'she was leaving the bathroom and whoosh'. Patient was noted to have hit her left brow when she fell and had an episode of emesis following the bead injury, thus EMS was called and she was transported to the hospital. Patient denies any associated chest pain, dyspnea, headaches, lightheadedness, urinary or bowel symptoms prior to the fall. Caregiver also denies recent complaints of such. Patient is now noting pain at her left brow where she obtained the laceration. Caregiver notes that patient did not eat well today prior to the fall, and this has been a more frequent occurrence over the last few weeks. In addition, it was noted that patient has been becoming more unstable with ambulation/walker use, she had previously received PT but it was discontinued. No recent medication changes or missed dosing. Patient noted to be at baseline mentation. Admission Exam Per Admitting Provider Gen: NAD, pleasant, alert (AO x 2), follows commands HEENT: Supple, no LAD, no thyromegaly, no JVD, dry mucous membranes - Tympanic membranes normal bilaterally, no hemotympanum - PERRLA, EOMI w/o pain Resp:Non-labored, no wheezing/rhonchi/rales, CTAB CV:RRR, normal S1/S2, no M/R/G Abd: Soft, non-distended, no TTP, normoactive bowels, no masses Extr: 2+ dp bilaterally, no edema, strength and sensation intact Skin: No rashes lesions or erythema, small 5 mm forehead laceration w/ surrounding ecchymosis/hematoma, ecchymosis to left shoulder Principal Diagnosis Unwitnessed mechanical fall Discharge Exam Gen: [id number], pleasant, no apparent distress HEENT: bruise on L brow, no neck stiffness, MMM CV: RRR, no m/r/g, S1/S2 normal Resp: CTAB, no respiratory distress Abd: Soft, NT/ND, +BS Skin: bruise on L shoulder, no rashes or other lesions Psych: Mod intellectual disability Discharge Data Allergies Allergy/AdvReac Type Severity Reaction Status Date / Time No Known Allergies Allergy Verified 03/29/24 10:39 Consultations 06/07/24 23:24 ED Decision to Admit Stat Ordered Studies 06/08/24 04:40 06/09/24 07:59 06/07/24 20:33 CT cervical spine wo con Stat CT facial bones wo con Stat CT head/brain wo con Stat Hospital Course (1) Fall: (2) Facial laceration: (3) CHI (closed head injury): (4) Hyponatremia: Jose F Rosmery is a 69F w/ PMH of moderate intellectual disability, HLD, anxiety, GERD, HTN, osteoarthritis, migraines, and glaucoma who presented from her shelter after an unwitnessed fall. Unwitnessed Fall at Home Intellectual Disability, baseline - Mechanical fall at home Fell while turning with walker and struck left brow and left shoulder Hx of ambulatory dysfunction requiring PT Caregiver at shelter reports frequent falls, cause unknown - R/o neurologic, cardiac, metabolic causes of fall before d/c C-spine, CXR, face and head CT, pelvis & shoulder x-ray all benign; only acute finding = L periorbital soft tissue swelling Hyponatremia improved, no concern for hypoglycemia or hypotension EKG and TTE normal No imaging or exam findings suggestive of CVA - PT/OT evaluations noted functional deficits in: Transfers, safety awareness, endurance, gait, balance/coordination, strength; okay to return home w 31/03 caregiver supervision; plan for home-health PT Facial Laceration - Hemostasis obtained w/o sutures - No facial fractures, pain w/ eye movement, or hemotympanum Hyponatremia - Suspect poor solute intake - 128 upon arrival; given 500cc NSS in ED; improved to 131 at discharge - Does have chronic hyponatremia to 133-134 Chronic Conditions: - Anxiety - continue Buspirone and Fluoxetine - GERD - continue Famotidine and omeprazole - HTN - continue HCTZ - HLD - continue statin - Glaucoma - continu Lantoprost Total Time Total Time Spent Total Time Spent (In Minutes): See attending documentation Discharge Plan Discharge Items Patient Disposition: Personal [facility] Reason For Visit: UNWHITNESSED FALL, HEAD INJURY Discharge Diagnosis: Fall, facial laceration, hyponatremia Activity: Resume your previous activity Non-emergency contact: Primary Care Provider Call non-emergency contact if: you have any medication questions, your symptoms worsen and your pain is concerning for you Follow-up/Referrals: Evi Cano MD [Primary Care Provider] - 06/15/24 3:00 pm Diet: Regular Addtl Attending Provider Instructions: Dear Rosmery, You were brought to the hospital after you fell and hit your head while at your (personal-care) home. You were evaluated in the emergency room with imaging, in order to confirm that you did not suffer a brain bleed or fracture. We did not find any evidence of bleeding or blood clot in your brain, nor did we find any evidence anywhere of a fracture. We ordered an ultrasound of your heart, also known as an echocardiogram, to make sure there were no abnormalities with your heart wall and valves. V ultrasound showed that your heart was functioning just fine. Finally, you were found on blood tests to be low in a few important electrolytes. You received electrolytes to help replace what you lost and your clinical condition improved as a result. Once you were medically stable, we consulted physical therapy after evaluating you, they feel that you are fit enough to be discharged to [facility]. Please pay attention to the following instructions. If you have any questions, please ask your nurse to clarify before you are discharged. 1. We made no changes to your home medications. You may continue to take them as previously directed, unless otherwise instructed to by your primary care physician (PCP). 2. Our hospital schedulers will make a hospital follow-up appointment with your primary care physician, Dr. Evi Cano. If you do not hear from Dr. Cano's clinic about a follow-up appointment in the next 2-3 business days, you should c ontact her clinic directly at [phone]. It is important that you attend this follow-up appointment, so that your PCP is updated about your hospital stay, and can continue to adequately manage your healthcare needs. It has been our pleasure to care for you here at [facility]. If you have any questions or concerns about your care, you may contact us at [phone]. 69F w/ PMH of moderate intellectual disability, HLD, anxiety, GERD, HTN, osteoarthritis, migraines, and glaucoma who presents from her shelter due to unwitnessed fall at home. Hyponatremia - Suspect poor solute intake - 128 upon arrival; improved to 132 s/p 500cc NSS in ED - History of chronic hyponatremia to 130-134 at baseline at discharge Unwitnessed Fall at Home Intellectual Disability, baseline - Mechanical fall tripped while turning with walker and struck left brow and left shoulder. - Hx of ambulatory dysfunction requiring PT caregiver at shelter reports frequent falls, cause unknown. - C-spine, CXR, face and head CT, pelvis & shoulder x-ray all benign; only acute finding = L periorbital soft tissue swelling. - Hyponatremia improved following repletion no concern for hypoglycemia or hypotension - EKG and transthoracic echocardiogram normal - PT/OT recommended 24-hour care, return to personal jail Facial Laceration - Hemostasis obtained w/o sutures - No facial fractures, pain w/ eye movement, or hemotympanum - Continue supportive measures Chronic Conditions: - Anxiety - continue Buspirone and Fluoxetine - GERD - continue Famotidine and omeprazole - HTN - continue HCTZ - HLD - continue statin - Glaucoma - continue Lantoprost Pending Studies at Discharge: No Stand-Alone Forms: My [employer], Smoking Cessation Skilled Items Patient informed of condition?: Yes DNR: No Discharge Level of Care: Other Communicable Disease: No Discharge Prognosis: Stable Lines: None Urinary Catheter: No Medications and DC Order Prescriptions: Continued bisacodyl [Dulcolax (bisacodyl)] 5 mg tablet,delayed release (DR/EC) 5 mg PO DAILY 1 Days Qty: 4 0RF moisturizer lotion See Rx Instructions .ROUTE 1XD Qty: 1 11RF Rx Instructions: amt. as needed for B/l arms 1 time daily; ammonium lactate 12 % lotion 1 applic topical DAILY Rx Instructions: Apply topically to dry areas of both feet at bedtime for dry skin triamcinolone acetonide 0.1 % cream 1 applic TOPICAL BID PRN (Reason: ECZEMA) 14 Days Qty: 30 1RF Rx Instructions: Please apply twin film twice daily to affected areas for eczema flares. Once rash resolves, this no longer needs to be applied. diclofenac sodium [Voltaren Arthritis Pain] 1 % gel 2 g topical QID Qty: 100 3RF Rx Instructions: place a dime sized drop in the bilateral knees up to 4 times a day. multivitamin Tablet 1 tab PO QAM alum-mag hydroxide-simeth 200-200-20 mg/5 mL Suspension 30 ml PO Q4 PRN (Reason: Gi Upset) lovastatin 20 mg Tablet 20 mg PO QAM fluticasone propionate [Flonase Allergy Relief] 50 mcg/actuation [place],Suspension 2 spray INTRANASAL QAM Mucinex DM 30-600 mg Tablet Extended Release 12 Hr 1 tab PO Q12H PRN (Reason: Cough) loratadine [Claritin] 10 mg Tablet 10 mg PO QPM fluoxetine 40 mg capsule 80 mg PO QAM famotidine 20 mg tablet 20 mg PO QAM buspirone 10 mg tablet 10 mg PO BID hydrochlorothiazide 12.5 mg capsule 12.5 mg PO QAM omeprazole 20 mg capsule,delayed release(DR/EC) 20 mg PO QAM Saline Nasal 0.65 % Aerosol,[place] 1 spray INTRANASAL UD Rx Instructions: Immediately before steroid nasal spray or as needed melatonin 5 mg Tablet 5 mg PO HS mirabegron [Myrbetriq] 25 mg tablet extended release 24 hr 25 mg PO QAM acetaminophen 500 mg tablet 1,000 mg PO Q8 PRN (Reason: Fever Or Pain) terbinafine HCl 1 % cream 1 applic TOPICAL UD PRN (Reason: nail fungus) dextromethorphan-guaifenesin [Tussin DM] 10-100 mg/5 mL Syrup 10 ml PO Q4H PRN (Reason: cold/cough/congestion) Linzess 145 mcg Capsule 145 mcg PO QAM latanoprost (PF) 0.005 % Dropperette 1 drp OPHTHALMIC (EYE) HS Discharge Orders: Discharge Order (Routine); Ordered 06/09/24 Ordered By: Dorita Kaba Admission Data Admit Date/Time: 06/08/24 00:05 Attending Provider: Justin Bautista Admit Provider: Mel Woodward Primary Care Provider: Evi Cano Other Providers: Malini Paula Other Interventions: Discharge Summary Assessment (RN) Last Done: 06/09/24 16:04 Supervising Physician Co-Signing Physician Notes Attending attestation Pt seen and examined in concert with Dr. Nettles. In agreement with the documented findings as noted in the resident documentation with any exceptions or additions as noted here. Difficult to obtain meaningful history in the setting of chronic intellectual disability. Patient reports minimal pain at time of examination on day of discharge. On examination, S1/S2 nl RRR no MCG. CTAB. Abd NT/ND BS+ve. Visible ecchymosis of the upper extremities and face without worsening pain/TTP reported. CNII-XII grossly intact with limited testing. Unwitnessed fall with concern for LOC in the setting of intellectual disability - PT/OT consult - return to shelter with 24 hour support and follow up in the outpatient. Else see resident documentation as noted. Total attending physician time spent with this patient's care on the day of discharge: 35 minutes. Resident Activity Tracking Resident Involvement: Resident Care Provided Care Provided: Adult Hospital Medicine
[2024-06-09 07:41] VITALS: TEMP 97.5; O2SAT 100
[2024-06-09 08:31] LABS: BUN Creatinine Ratio 22.9 (10-20); Calcium 8.9 mg/dl (8.6-10.3); Est GFR (African American) 114.4 ml/min; Est GFR (Non-African American) 98.7 ml/min; Potassium 4.1 mmol/L (3.5-5.1)
[2024-06-09 15:18] VITALS: RESP 18
[2024-06-09 16:15] VITALS: BP 135/71; PULSE 76
== END 2024-06-09 16:41 | disposition home or self-care (01) ==
LOC: ED 20:21 → SUATTDRO 06-08 00:05 → EDINP 06-08 00:05 → INTOOBSV 06-08 00:05 → 2N 06-08 01:44

== ENCOUNTER 2024-11-02 12:27 | Observation (INO) ==
[2024-11-02 14:25] LABS: Basophils # (auto) 0.01 K/uL (0.00-0.20); Basophils % (auto) 0.2 %; Eosinophils # (auto) 0.04 K/uL (0.00-0.50); Eosinophils % (auto) 0.7 %; Hematocrit (blood only) 40.1 % (37.0-47.0); Hemoglobin 13.5 g/dl (12.0-16.0); Immature Granulocytes # (auto) 0.03 K/uL (0.01-0.20); Immature Granulocytes % (auto) 0.6 %; Lymphocytes # (auto) 0.85 K/uL (1.20-3.40); Lymphocytes % (auto) 15.8 %; Mean Corpuscular Hemoglobin 30.2 pg (25.0-34.0); Mean Corpuscular Hgb Conc 33.7 g/dL (32.0-36.0); Mean Corpuscular Volume 89.7 fL (80.0-100.0); Mean Platelet Volume 9.2 fL (9.4-12.4); Monocytes # (auto) 0.54 K/uL (0.11-0.59); Neutrophils # (auto) 3.91 K/uL (1.40-6.50); Neutrophils % (auto) 72.7 %; Platelet Count 233 K/uL (130-400); RDW Coefficient of Variation 13.5 % (11.5-14.5); Red Blood Count 4.47 M/uL (4.20-5.40); White Blood Count 5.38 K/ul (4.8-10.8)
[2024-11-02 14:40] LABS: Alanine Aminotransferase 55 U/L (7-52); Albumin Globulin Ratio 1.5 (0.9-2); Alkaline Phosphatase 178 U/L (34-104); Anion Gap 5 (3-11); Aspartate Aminotransferase 46 U/L (13-39); BUN Creatinine Ratio 50.8 (10-20); Bilirubin,Total 0.8 mg/dl (0.2-1.0); Blood Urea Nitrogen 30 mg/dl (6-23); Calcium 9.1 mg/dl (8.6-10.3); Carbon Dioxide 29 mmol/L (21-32); Chloride 103 mmol/L (98-107); Globulin 2.6 gm/dl (2.5-4.0); Glucose 107 mg/dl (70-99(Fasting)); Potassium 3.6 mmol/L (3.5-5.1); Sodium 137 mmol/L (136-145); Total Protein 6.6 gm/dl (6.0-8.3)
--- NOTE | 2024-11-02 15:41 | Emergency Department Note ---
Impression & Plan Abdominal pain, acute, right upper quadrant, Acute cholecystitis, Nausea & vomiting ED Provider Note NAME: CARL NIELSON AGE: 69 SEX: F : 1955 ARRIVES VIA: Walk-In INFORMANT: Patient, the patient's caregiver ED PROVIDER(S): Anthony Bryan DO CHIEF COMPLAINT: Vomiting HPI: The patient is a 69-year-old female who presented to the emergency department for an evaluation of nausea and vomiting. The patient's had multiple episodes of emesis since yesterday. There is no reported fever or trauma. The patient denies having any headache or abdominal pain. The patient denies having any chest pain or difficulty breathing. The patient has a history of intellectual disability as well as dementia. She has been seen by her family doctor. ROS: See above HPI for pertinent positives & negatives. A total of 10 systems reviewed and were otherwise negative. PAST MEDICAL HISTORY: See Below PAST SURGICAL HISTORY: See Below FAMILY HISTORY: See Below SOCIAL HISTORY: See Below HOME MEDICATIONS: See Below ALLERGIES: See Below VITALS: See Below PHYSICAL EXAMINATION: GENERAL: Patient is awake alert in no acute distress patient is resting comfortably and showing no signs of anxiety EYES: The conjunctivae are clear. The pupils are round and reactive. EARS, NOSE, MOUTH AND THROAT: The nose is without any evidence of any deformity. Mucous membranes are moist. Tongue is midline. NECK: The neck is nontender and supple. RESPIRATORY: Normal respiratory effort is noted there is no evidence of wheezing rhonchi or rales CARDIOVASCULAR: Regular rate and rhythm noted there no murmurs rubs or gallops normal S1 normal S2. GASTROINTESTINAL: Right at the present palpation. There is no specific guarding or rigidity. MUSCULOSKELETAL/EXTREMITIES: There is no evidence of gross deformity full range of motion is noted in the hips and shoulders. SKIN: There is no obvious evidence of any rash. There are no petechiae, pallor or cyanosis noted. NEUROLOGIC: Patient is awake alert and oriented to person place and situation. Gait was baseline according to the caregivers. MEDICAL DECISION MAKING: Issues. The patient states the patient is a 69-year-old female who presented to the emergency department for evaluation of cough nausea and vomiting. The patient has a history of learning disability in the ED the patient is alert and x 3 intellectual disability. The patient has been experiencing nausea and vomiting. She was sent to the emergency department from her personal-fdc. The patient's physical exam was consistent with right upper quadrant abdominal pain. There is no obvious guarding. The patient was found to have abnormal LFTs on laboratory studies. Given this the patient had radiographic studies which could be consistent with acute cholecystitis. I discussed the patient's condition with the on-call general surgeon. He does recommend a medical admission at this time as well as further workup. I discussed the case with the [facility]ist. They will have agreed to evaluate the patient in the emergency department for further management and disposition Triage Nursing notes reviewed. Prior medical records reviewed Vital Signs: reviewed and remarkable for no significant abnormalities Differential diagnosis: Gastroenteritis, food borne illness, infections, appendicitis, diverticulitis, inflammatory bowel disease, obstruction, GI bleed, biliary pathology, volvulus, as well as other pathologies. ER treatment provided: See below Diagnostics interpreted by me: ECG: EKG was obtained in the emergency department. My interpretation is normal sinus rhythm at 68 bpm. There is no ectopy. There is no acute ST segment abnormalities noted Cardiac Monitoring: An order was placed for continuous cardiac monitoring. The monitor shows a rate of 62 bpm with sinus rhythm. Laboratory studies: As stated above and show below. Imaging studies: See below. Radiographic imaging was reviewed by myself Consultation(s): I discussed this case with Dr. Hyman who is on-call for general surgery. I discussed this case with Dr. Rosario who is on for [facility] hospitalist group. Past Med/Surg History Problem List (Updated 11/02/24 @ 20:23 by Anthony Bryan DO) Nausea & vomiting (Acute) Acute cholecystitis (Acute) Abdominal pain, acute, right upper quadrant (Acute) Acute cholecystitis Dementia OAB (overactive bladder) Hyponatremia (Acute) Right knee DJD Osteoarthritis of left knee Seasonal allergic rhinitis Moderate intellectual disabilities Hyperlipidemia Anxiety GERD (gastroesophageal reflux disease) Hypertension Glaucoma Osteoarthritis of right ankle DJD (degenerative joint disease) of knee Medical History Intraductal carcinoma of right breast Intertrigo hx Seasonal allergies Constipation Post-traumatic osteoarthritis of knees, bilateral Hx of breast cancer Benign paroxysmal vertigo Unilateral primary osteoarthritis, left knee Age-related nuclear cataract of both eyes Astigmatism Exotropia Myopia Blepharitis Migraine Adjustment disorder with anxiety Recurrent depressive disorder Allergic rhinitis Cervical high risk HPV (human papillomavirus) test positive Surgical History Surgical history unknown Family History Father , of [place] age 40 No problems noted. 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 current occupational status: disabled Feels Safe at Home: Yes Childhood Exposure to Second-Hand Smoke: No Diet: low salt and regular caffeine: Yes Dental Care, Regularly: Yes Physical Activity Frequency: Daily Seatbelt Use: always Sunscreen Use: Yes Assistive Devices: Walker Allergies Allergies Allergy/AdvReac Type Severity Reaction Status Date / Time No Known Allergies Allergy Verified 09/27/24 09:47 Home Meds Home Medications Medication Instructions Recorded Confirmed aluminum-mag hydroxide-simethicone 30 ml PO Q4 PRN Gi Upset 12/23/18 08/27/24 200 mg-200 mg-20 mg/5 mL oral susp fluticasone propionate 50 2 spray intranasal QAM 12/23/18 08/27/24 mcg/actuation nasal spray,suspension (Flonase Allergy Relief) lovastatin 20 mg tablet 20 mg PO QAM 12/23/18 08/27/24 dextromethorphan-guaifenesin 30 1 tab PO Q12H PRN Cough 04/28/19 08/27/24 mg-600 mg tablet extended hr (Mucinex DM) loratadine 10 mg tablet (Claritin) 10 mg PO QPM 04/28/19 08/27/24 acetaminophen 500 mg tablet 1,000 mg PO Q8 PRN Fever Or Pain 02/26/24 08/27/24 famotidine 20 mg tablet 20 mg PO QAM 02/26/24 08/27/24 fluoxetine 40 mg capsule 80 mg PO QAM 02/26/24 08/27/24 melatonin 5 mg tablet 5 mg PO HS 02/26/24 08/27/24 mirabegron 25 mg tablet,extended 25 mg PO QAM 02/26/24 08/27/24 release 24 hr (Myrbetriq) omeprazole 20 mg capsule,delayed 20 mg PO QAM 02/26/24 08/27/24 release sodium chloride 0.65 % nasal spray 1 spray intranasal UD 02/26/24 08/27/24 aerosol (Saline Nasal) dextromethorphan-guaifenesin 10 10 ml PO Q4H PRN 03/19/24 08/27/24 mg-100 mg/5 mL oral syrup (Tussin cold/cough/congestion DM) latanoprost (PF) 0.005 % eye drops 1 drp ophthalmic (eye) HS 03/19/24 08/27/24 in a dropperette linaclotide 145 mcg capsule 145 mcg PO QAM 03/19/24 08/27/24 (Linzess) ammonium lactate 12 % lotion 1 applic topical DAILY 03/29/24 08/27/24 buspirone 10 mg tablet 15 mg PO BID 06/10/24 08/27/24 carbamide peroxide 6.5 % ear drops 5 drp otic (ear) DAILY PRN ear wax 09/27/24 09/27/24 (Debrox) soap ea topical 09/27/24 09/27/24 Previous Rx's Medication Instructions Recorded triamcinolone acetonide 0.1 % 1 applic topical BID PRN ECZEMA 14 03/29/24 topical cream days #30 grams moisturizer lotion See Rx Instructions .Route 1XD #1 03/30/24 tube miscellaneous medical supply 1 ea miscellaneous DAILY #1 ea 08/27/24 miscellaneous medical supply 1 ea miscellaneous DAILY #1 ea 08/27/24 neomycin-bacitracn Zn-polymyx 3.5 1 applic topical DAILY PRN 09/27/24 mg-400 unit-5,000 unit/gram top cuts/scrapes #14 grams oint (Triple Antibiotic) polyethylene glycol 3350 17 gram 17 g PO DAILY #30 ea 09/27/24 oral powder packet (Miralax) food supplemt, lactose-reduced See Rx Instructions PO DAILY 09/29/24 0.04 gram-1 kcal/mL oral liquid #5,688 mL (Boost) multivitamin 1 tab PO QAM 90 days #90 tabs 09/29/24 amlodipine 5 mg tablet 5 mg PO DAILY #30 tabs 10/17/24 diclofenac sodium 1 % topical gel 2 g topical QID #100 grams 10/20/24 (Voltaren Arthritis Pain) Results & Data (ED) Vital Signs Vital Signs - 24 hr 11/02/24 12:39 11/02/24 15:00 11/02/24 17:00 Temperature 36.6 C Temperature Source Temporal Artery Scan Pulse Rate 79 Pulse Rate [Finger] 70 62 Respiratory Rate 20 18 18 Respiratory Effort / Characteristics Non-Labored Spontaneous Non-Labored Spontaneous Respiratory Depth Normal Normal Blood Pressure 115/49 L Blood Pressure [Right Arm] 128/61 138/57 L Blood Pressure Mean 71 Blood Pressure Mean [Right Arm] 83 84 Pulse Oximetry 100 96 100 Oxygen Delivery Method Room Air Room Air Sepsis Recent Fever Within 48 Hours No Sepsis New/Unexplained Change in Mental Status N/A Sepsis Action Taken by Nursing No Action Required Home Medications Current Medication List: was personally reviewed by me Laboratory Data Attestation: I reviewed the patient's lab results. 11/03/24 05:38 11/03/24 05:38 Lab Results 11/02/24 11/02/24 Range/Units 14:07 17:08 WBC 5.38 (4.8-10.8) K/ul RBC 4.47 (4.20-5.40) M/uL Hgb 13.5 (12.0-16.0) g/dl Hct 40.1 (37.0-47.0) % MCV 89.7 (80.0-100.0) fL MCH 30.2 (25.0-34.0) pg MCHC 33.7 (32.0-36.0) g/dL RDW Std Deviation 44.0 (36.4-46.3) fL RDW Coeff of Jose 13.5 (11.5-14.5) % Plt Count 233 (130-400) K/uL MPV 9.2 L (9.4-12.4) fL Immature Gran % (Auto) 0.6 % Neut % (Auto) 72.7 % Lymph % (Auto) 15.8 % [place] % (Auto) 10.0 % Eos % (Auto) 0.7 % Baso % (Auto) 0.2 % Neut # (Auto) 3.91 (1.40-6.50) K/uL Lymph # (Auto) 0.85 L (1.20-3.40) K/uL [place] # (Auto) 0.54 (0.11-0.59) K/uL Eos # (Auto) 0.04 (0.00-0.50) K/uL Baso # (Auto) 0.01 (0.00-0.20) K/uL Immature Gran # (Auto) 0.03 (0.01-0.20) K/uL Sodium 137 (136-145) mmol/L Potassium 3.6 (3.5-5.1) mmol/L Chloride 103 (98-107) mmol/L Carbon Dioxide 29 (21-32) mmol/L Anion Gap 5 (3-11) BUN 30 H (6-23) mg/dl Creatinine 0.59 L (0.6-1.2) mg/dl Est Cr Clr Drug Dosing Not Reportable eGFR 96.29 BUN/Creatinine Ratio 50.8 H (10-20) Glucose 107 H (70-99(Fasting)) mg/dl Calcium 9.1 (8.6-10.3) mg/dl Total Bilirubin 0.8 (0.2-1.0) mg/dl AST 46 H (13-39) U/L ALT 55 H (7-52) U/L Alkaline Phosphatase 178 H (34-104) U/L Troponin I High Sens 5.6 (0-14) pg/ml Total Protein 6.6 (6.0-8.3) gm/dl Albumin 4.0 (3.4-5.0) gm/dl Globulin 2.6 (2.5-4.0) gm/dl Albumin/Globulin Ratio 1.5 (0.9-2) Lipase 7 L (11-82) U/L Urine Color Yellow Urine Appearance Clear (Clear) Urine pH 6.0 (4.5-7.5) Ur Specific [place] > 1.045 H (1.000-1.030) Urine Protein Trace H (Negative) Urine Glucose (UA) Negative (Negative) Urine Ketones 1+ H (Negative) Urine Blood Negative (Negative) Urine Nitrite Negative (Negative) Urine Bilirubin Negative (Negative) Urine Urobilinogen Negative (Negative) Ur Leukocyte Esterase Negative (Negative) Urine WBC (Auto) 0-5 (0-5) /hpf Urine RBC (Auto) 3-5 H (0-2) /hpf U Hyaline Cast (Auto) 0-2 (0-2) /lpf U Epithel Cells (Auto) 0-2 (0-2) /hpf Urine Bacteria (Auto) None Seen (None Seen) Administered Medications Lactated Ringer's (Lr) 1,000 mls @ 80 mls/hr IV .[id number] [facility] Stop: 11/03/24 17:59 Last Admin: 11/02/24 23:24 Dose: 80 mls/hr Documented By: Infusion: 11/02/24 23:24 Dose: Infused Documented By: Admin: 11/02/24 18:39 Dose: 80 mls/hr Documented By: JC Piperacillin Sod/Tazobactam Sod (Zosyn) 4.5 gm in 100 mls @ 25 mls/hr IV Q8H [facility]; Protocol Stop: 11/12/24 22:59 Last Admin: 11/03/24 06:09 Dose: 25 mls/hr Documented By: Infusion: 11/03/24 03:50 Dose: Infused Documented By: Admin: 11/02/24 23:31 Dose: 25 mls/hr Documented By: REBECA Discontinued Medications Sodium Chloride (Nss) 1,000 mls @ 999 mls/hr IV .Q1H1M ONE Stop: 11/02/24 16:33 Last Infusion: 11/02/24 17:16 Dose: Infused Documented By: Admin: 11/02/24 16:14 Dose: 999 mls/hr Documented By: BORIS Piperacillin Sod/Tazobactam Sod (Zosyn) 4.5 gm in 100 mls @ 200 mls/hr IV NOW ONE; Protocol Stop: 11/02/24 17:23 Last Infusion: 11/02/24 17:55 Dose: Infused Documented By: Admin: 11/02/24 17:22 Dose: 200 mls/hr Documented By: JC Ioversol (Optiray 320 100ml) 93 ml IV ONCE ONE Stop: 11/02/24 16:01 Last Admin: 11/02/24 16:00 Dose: 93 ml Documented By: JI Ondansetron HCl (Ondansetron Inj 2 Mg/Ml 2 Ml Vial) 4 mg IV NOW STA Stop: 11/02/24 15:34 Last Admin: 11/02/24 16:14 Dose: 4 mg Documented By: BORIS Imaging Data Attestation: I personally reviewed and interpreted this imaging study as follows: My Impression: CT of the abdomen and pelvis was obtained in the emergency department. My interpretation is no free air or signs of bowel obstruction, final report below. Radiologist's Impression: Cholangiopancreatography MRI 11/02/24 17:55 Exam(s): MRI MRCP EXAM: MR Abdomen Without Intravenous Contrast, MRCP Protocol CLINICAL HISTORY: Reason for exam: ? CBD stone. TECHNIQUE: Multiplanar magnetic resonance images of the abdomen without intravenous contrast using MRCP protocol. COMPARISON: CT abdomen pelvis 11/02/2024 FINDINGS: Bile ducts: No biliary stone. No biliary dilatation. CBD measures 4 mm. No stricturing. Gallbladder: Cholelithiasis. No inflammatory changes around the gallbladder. Liver: Unremarkable. Pancreas: Unremarkable. No ductal dilation. Spleen: Unremarkable. No splenomegaly. Adrenals: Unremarkable. No mass. Kidneys and ureters: Cyst arising from the inferior pole of the left kidney measuring 4.5 x 4.2 cm. Right kidney is unremarkable. No hydronephrosis. Stomach and bowel: Unremarkable. No obstruction. IMPRESSION: 1. No biliary stone or biliary dilatation. 2. Cholelithiasis without acute cholecystitis. Electronically signed by: Damon Clay MD 11/02/24 20:28 PM Discharge Plan Visit Data Chief Complaint: Vomiting Stated Complaint: NAUSEA, VOMITING ED Provider: Anthony Bryan Discharge Problem: Abdominal pain, acute, right upper quadrant, Acute cholecystitis, Nausea & vomiting Patient Disposition: Admitted As Inpatient Discharge Instructions Interventions: ED Discharge Assessment Last Done: 11/02/24 22:11
[2024-11-02] MEDS: OPTIRAY 320 100ml IV ONE (16:00)
[2024-11-02 16:14] LABS: Troponin I High Sensitivity 5.6 pg/ml (0-14)
[2024-11-02] MEDS: ONDANSETRON INJ 2 MG/ML 2 ML VIAL IV STA (16:14)
[2024-11-02] MEDS: SODIUM CHLORIDE 0.9% 1,000 ML IV ONE (16:14)
--- NOTE | 2024-11-02 16:40 | CT Scan Report ---
INDICATION: Nausea and vomiting. COMPARISON: No relevant priors available. TECHNIQUE: Axial CT images of the abdomen and pelvis were obtained following IV contrast administration. Coronal and sagittal reformations were reviewed. FINDINGS: Visualized lung bases appear unremarkable. Calcified granuloma in the right lower lobe. Small amount of fluid surrounding the gallbladder. Gallbladder distention. The liver, spleen, pancreas and adrenal glands appear unremarkable. No hydronephrosis. Simple appearing 4 cm left renal cyst. No evidence of bowel obstruction/colitis/appendicitis. No free air. No drainable fluid collection. Negative for abdominal aortic aneurysm or dissection. The urinary bladder appears unremarkable. Chronic appearing left rib deformities. Degenerative changes in the spine. No acute osseous abnormality evident. IMPRESSION: 1. Findings concerning for acute cholecystitis. Follow-up with ultrasound/HIDA scan as clinically relevant. 2. Simple appearing 4 cm left renal cyst. Electronically signed by Kevin Shaver 11-02-2024 4:40 PM
[2024-11-02] MEDS: PIPERACILLIN/TAZOBACTAM 4.5 GM/100 ML BAG IV ONE (17:22)
[2024-11-02 17:29] LABS: Lipase 7 U/L (11-82)
[2024-11-02] MEDS ORDERED: ONDANSETRON INJ 2 MG/ML 2 ML VIAL IV PRN (17:55)
--- NOTE | 2024-11-02 18:07 | History & Physical Report ---
Date of Service November 02, 2024 Assessment & Plan (1) Acute cholecystitis: Plan: Assessment: 1. Acute cholecystitis. IV Zosyn. General surgery consultation. Ultrasound and MRCP ordered per ER's recommendation from surgery. NPO. IV fluids. 2. Transaminitis secondary to the above. Monitor. 3. Intellectual debility and dementia. Lives in a fpc. Discussed with her caregiver at the bedside as well as her Sister Akanksha by phone. Patient is a DNR per her sister. 4. Hypertension. Continue home medications. 5. History of anxiety. Continue home medication. 6. History of GERD. Continue H2 fátima and PPI as at home. Med rec pending. 7. Osteoarthritis. Plan: As discussed above. Please refer to orders for further planning. History of Present Illness Chief Complaint: Abdominal pain, nausea, vomiting. Primary Care Provider: Evi Cano MD Pleasant 69-year-old female who lives in a fpc. She has intellectual delay and dementia. Over the last 24 hours prior to presentation to ER she developed abdominal discomfort with significant nausea and vomiting. In the emergency department had a CT of the abdomen pelvis suggestive of acute cholecystitis. She had a mildly elevated alkaline phosphatase at 178 with an AST ALT of 46 and 55 respectively. Consultation was obtained with general surgery they are recommending ultrasound and MRCP per the emergency department provider. Patient received IV Zosyn in the ER as well as a couple doses of IV Zofran and a liter of saline. We are called admit the patient for further evaluation and treatment. It should be noted that most of the history is obtained from the past medical history specifically a primary care note from August 26, 2024 as well as the patient's caregiver from the fpc is at the bedside. Allergies Allergy/AdvReac Type Severity Reaction Status Date / Time No Known Allergies Allergy Verified 09/27/24 09:47 Home Medications Medication Instructions Recorded Confirmed Type aluminum-mag hydroxide-simethicone 30 ml PO Q4 PRN Gi Upset 12/23/18 08/27/24 History 200 mg-200 mg-20 mg/5 mL oral susp fluticasone propionate 50 2 spray intranasal QAM 12/23/18 08/27/24 History mcg/actuation nasal spray,suspension (Flonase Allergy Relief) lovastatin 20 mg tablet 20 mg PO QAM 12/23/18 08/27/24 History dextromethorphan-guaifenesin 30 1 tab PO Q12H PRN Cough 04/28/19 08/27/24 History mg-600 mg tablet extended [id number] hr (Mucinex DM) loratadine 10 mg tablet (Claritin) 10 mg PO QPM 04/28/19 08/27/24 History acetaminophen 500 mg tablet 1,000 mg PO Q8 PRN Fever Or Pain 02/26/24 08/27/24 History famotidine 20 mg tablet 20 mg PO QAM 02/26/24 08/27/24 History fluoxetine 40 mg capsule 80 mg PO QAM 02/26/24 08/27/24 History melatonin 5 mg tablet 5 mg PO HS 02/26/24 08/27/24 History mirabegron 25 mg tablet,extended 25 mg PO QAM 02/26/24 08/27/24 History release 24 hr (Myrbetriq) omeprazole 20 mg capsule,delayed 20 mg PO QAM 02/26/24 08/27/24 History release sodium chloride 0.65 % nasal spray 1 spray intranasal UD 02/26/24 08/27/24 History aerosol (Saline Nasal) dextromethorphan-guaifenesin 10 10 ml PO Q4H PRN 03/19/24 08/27/24 History mg-100 mg/5 mL oral syrup (Tussin cold/cough/congestion DM) latanoprost (PF) 0.005 % eye drops 1 drp ophthalmic (eye) HS 03/19/24 08/27/24 History in a dropperette linaclotide 145 mcg capsule 145 mcg PO QAM 03/19/24 08/27/24 History (Linzess) ammonium lactate 12 % lotion 1 applic topical DAILY 03/29/24 08/27/24 History triamcinolone acetonide 0.1 % 1 applic topical BID PRN ECZEMA 14 03/29/24 08/27/24 Rx topical cream days #30 grams moisturizer lotion See Rx Instructions .Route 1XD #1 03/30/24 08/27/24 Rx tube buspirone 10 mg tablet 15 mg PO BID 06/10/24 08/27/24 History miscellaneous medical supply 1 ea miscellaneous DAILY #1 ea 08/27/24 08/27/24 Rx miscellaneous medical supply 1 ea miscellaneous DAILY #1 ea 08/27/24 08/27/24 Rx carbamide peroxide 6.5 % ear drops 5 drp otic (ear) DAILY PRN ear wax 09/27/24 09/27/24 History (Debrox) neomycin-bacitracn Zn-polymyx 3.5 1 applic topical DAILY PRN 09/27/24 09/27/24 Rx mg-400 unit-5,000 unit/gram top cuts/scrapes #14 grams oint (Triple Antibiotic) polyethylene glycol 3350 17 gram 17 g PO DAILY #30 ea 09/27/24 09/27/24 Rx oral powder packet (Miralax) soap ea topical 09/27/24 09/27/24 History food supplemt, lactose-reduced See Rx Instructions PO DAILY 09/29/24 09/29/24 Rx 0.04 gram-1 kcal/mL oral liquid #5,688 mL (Boost) multivitamin 1 tab PO QAM 90 days #90 tabs 09/29/24 09/29/24 Rx amlodipine 5 mg tablet 5 mg PO DAILY #30 tabs 10/17/24 Rx diclofenac sodium 1 % topical gel 2 g topical QID #100 grams 10/20/24 Rx (Voltaren Arthritis Pain) Past Med/Surg History Problem List (Updated 11/02/24 @ 18:02 by Davy Rosario, PhD, DO) Acute cholecystitis Dementia OAB (overactive bladder) Hyponatremia (Acute) Right knee DJD Osteoarthritis of left knee Seasonal allergic rhinitis Moderate intellectual disabilities Hyperlipidemia Anxiety GERD (gastroesophageal reflux disease) Hypertension Glaucoma Osteoarthritis of right ankle DJD (degenerative joint disease) of knee Medical History Intraductal carcinoma of right breast Intertrigo hx Seasonal allergies Constipation Post-traumatic osteoarthritis of knees, bilateral Hx of breast cancer Benign paroxysmal vertigo Unilateral primary osteoarthritis, left knee Age-related nuclear cataract of both eyes Astigmatism Exotropia Myopia Blepharitis Migraine Adjustment disorder with anxiety Recurrent depressive disorder Allergic rhinitis Cervical high risk HPV (human papillomavirus) test positive Surgical History Surgical history unknown Family History Father , of PR age 40 No problems noted. Sister Diabetes 1.5, managed as type 1 Social History Smoking Status: Never smoker Second Hand Exposure: No; Do You Dip or Chew Tobacco: No; Hx Alcohol Use: No Hx Substance Use: No Preferred Language: Spanish Communication Ability: Effective Sagger Maker Required: No Beliefs That Will Affect Care: None marital status: Single Current Living Situation: Personal Care Facility Current Living Situation Comment: [facility] [employer] current occupational status: disabled Feels Safe at Home: Yes Childhood Exposure to Second-Hand Smoke: No Diet: low salt and regular caffeine: Yes Dental Care, Regularly: Yes Physical Activity Frequency: Daily Seatbelt Use: always Sunscreen Use: Yes Assistive Devices: Cane and Wheelchair Review of Systems Review of Systems: A 10 point review of system was obtained and unless otherwise stated here or in history of present illness are negative and noncontributory to chief complaint. Physical Exam Physical Exam: In General: In general 69-year-old female who is alert and oriented and at her baseline from a neurological standpoint per the caregiver at the bedside. She appears to be comfortable currently she is looking at magazines at the time of my examination. She is very pleasant HEENT: Normocephalic atraumatic pupils are equal round and reactive to light bilaterally. No scleral icterus no conjunctival injection external auditory canals are patent septum is in the midline nose is without discharge oral mucosa is pink and moist without lesion. NECK: Supple no rigidity no lymphadenopathy no thyromegaly no carotid bruits no JVD no masses. HEART: Regular rate and rhythm I do not appreciate any ectopy or rub. No murmur. LUNGS: Clear to auscultation bilaterally and anteriorly with no evidence of adventitious sounds/wheezes rales or rhonchi. ABDOMEN: Soft , tender to palpation. Mid epigastric and right upper quadrant. No rebound. No peritoneal sign. No appreciable organomegaly. Positive bowel sounds. EXTREMITIES: Intact, no peripheral cyanosis, clubbing or edema. NEUROLOGICAL: Not able to fully cooperate with cranial nerve exam given her intellectual debility but appears to be at her baseline per the caregiver at the bedside. No focal deficits. Results & Data Results & Data Vital Signs (Past 12 Hours) Vital Signs Temp Pulse Pulse Resp BP BP Pulse Ox 11/02/24 17:00 62 18 138/57 L 100 11/02/24 15:00 70 18 128/61 96 11/02/24 12:39 36.6 C 79 20 115/49 L 100 O2 Del Method 11/02/24 17:00 Room Air 11/02/24 15:00 Room Air 11/02/24 12:39 Code Status & VTE Plan Code Status DNR/DNI. I personally discussed with the patient's sister by phone Akanksha. However family would be fine with general surgery and general anesthesia for cholecystectomy if that was recommended. VTE Prophylaxis Plan VTE Prophylaxis will be ordered: Yes PG Care Time/CCT Total # of Minutes Spent Total Time Spent with Patient: Total time spent is greater than 50% in coordination of care (as documented) at patient's floor/unit and/or counseling patient: Coding Level of Care Code 06078 INT INP/OBS CARE 75MIN Diagnoses Acute cholecystitis K81.0
--- NOTE | 2024-11-02 18:35 | Ultrasound Report ---
INDICATION: Abdominal pain. COMPARISON: CT abdomen pelvis from the same day. TECHNIQUE: Transverse and longitudinal azul scale and color Doppler images of the right upper quadrant were obtained. FINDINGS: Liver: Measures up to 15.1 cm in length. No focal hepatic mass or intrahepatic biliary ductal dilatation. Hepatopedal flow in the portal vein. Gallbladder: Gallstones/sludge in the gallbladder. No significant gallbladder wall thickening or pericholecystic fluid. The common bile duct is not dilated. Pancreas: Free of focal mass, as visualized. Right kidney: Measures up to 9.6 cm. Negative for solid renal mass, hydronephrosis, cyst or shadowing calculus. IMPRESSION: Cholelithiasis without evidence of acute cholecystitis. Follow-up with HIDA scan as clinically relevant. Electronically signed by Kevin Shaver 11-02-2024 6:34 PM
[2024-11-02] MEDS: LACTATED RINGER'S 1,000 ML IV SCH (18:39)
[2024-11-02 19:05] LABS: Appearance Urine Clear (Clear); Bacteria Urine Automated None Seen (None Seen); Bilirubin Urine Negative (Negative); Blood Urine Negative (Negative); Cast Urine Automated 0-2 /lpf (0-2); Color Urine Yellow; Epithelial Cell Urine Auto 0-2 /hpf (0-2); Glucose Urine UA Negative (Negative); Ketones Urine 1+ (Negative); Leukocyte Esterase Urine Negative (Negative); Nitrite Urine Negative (Negative); Protein Urine Trace (Negative); Specific Gravity Urine > 1.045 (1.000-1.030); Urobilinogen Urine Negative (Negative); WBC Urine Automated 0-5 /hpf (0-5)
--- NOTE | 2024-11-02 20:30 | Magnetic Resonance Report ---
Exam(s): MRI MRCP EXAM: MR Abdomen Without Intravenous Contrast, MRCP Protocol CLINICAL HISTORY: Reason for exam: ? CBD stone. TECHNIQUE: Multiplanar magnetic resonance images of the abdomen without intravenous contrast using MRCP protocol. COMPARISON: CT abdomen pelvis 11/02/2024 FINDINGS: Bile ducts: No biliary stone. No biliary dilatation. CBD measures 4 mm. No stricturing. Gallbladder: Cholelithiasis. No inflammatory changes around the gallbladder. Liver: Unremarkable. Pancreas: Unremarkable. No ductal dilation. Spleen: Unremarkable. No splenomegaly. Adrenals: Unremarkable. No mass. Kidneys and ureters: Cyst arising from the inferior pole of the left kidney measuring 4.5 x 4.2 cm. Right kidney is unremarkable. No hydronephrosis. Stomach and bowel: Unremarkable. No obstruction. IMPRESSION: 1. No biliary stone or biliary dilatation. 2. Cholelithiasis without acute cholecystitis. Electronically signed by: Damon Clay MD 11/02/24 20:28 PM
--- OUTSIDE RECORDS SUMMARY | 2024-11-02 20:48 | External Medical Summary | Summary of Care ---
Author Name Unknown Organization [facility] Address [address] [place] [address] Phone [phone] Care Team Providers Care Health Information Technologist Name Role Phone Chel Dugan MD Primary Care Provider [phone] Encounter Details Date Type Department Care Team (Late st Contact Info) Description 07/01/2024 Telephone Pre [facility] [address] [facility] [place] [address] Catia Hernandez MD [address] [place], [place] [address] [address] Allergies Active Allergy Reactions Criticality Noted Date Comments Pollen 11/09/2019 Nasal congestion documented as of this encounter (statuses as of 09/30/2024) Medications Glucosamine-Cho ndroitin-Vit D3 5252-4152-987 MG-MG-UNIT PACK Take 1 Units by mouth daily. Take by mouth. 30 Each 5 06/10/20 18 Active saline (OCEAN NASAL SPRAY) 0.65 % nasal sprayIndication s:Allergic rhinitis, unspecified seasonality, unspecified trigger one sprays in each nostril immediately before steroid nasal spray, or as needed for nasal dryness or congestion 1 Bottle 5 06/10/20 18 Active Dextromethorpha n-guaiFENesin (MUCINEX DM) 30-600 MG TB12 Take 1 Tab by mouth 2 times a day as needed for Cough. Take with plenty of water. Do not cut, crush or chew 40 Tab 2 02/27/20 19 Active Simethicone 20 MG/0.3ML Oral Suspension Take 30 mL by mouth every 4 hours as needed for Nausea (vomiting). Active Neosporin Original External Ointment Apply topically to affected area as needed (cuts, scrapes, & scratches). Active Adult Blood Pressure Cuff Lg KitIndications: Urge incontinence of urine Check blood pressure twice a week, to call DR Landaverde if the systolic goes above 150 1 Kit 10/30/19 21 Active Meclizine HCl 25 MG Oral Tablet (Antivert) TAKE ONE TABLET BY MOUTH THREE TIMES DAILY NEEDED FOR DIZZINESS 20 Tab 06/29/20 21 Active Carbamide Peroxide 6.5 % Otic Solution (Debrox) 5 Drops every morning. Active Dextromethorpha n Polistirex ER 30 MG/5ML Suspension Extended Release Take by mouth . Acti ve Citalopram Hydrobromide 20 MG Oral Tablet (CeleXA)Indicat ions:Anxiety state TAKE 1 TAB BY MOUTH DAILY (DEPRESSION) 90 Tablet 3 01/10/20 23 Active Depend Easy Fit UndergarmentsIn dications:Urina ry incontinence, unspecified type USE DAILY DIRECTED INCONTINENCE MEDLINE [id number] 80 Each 5 01/30/20 23 Active Terbinafine HCl 1 % External Cream (LamISIL AT)Indications: Intertrigo Apply topically to affected area 2 times a day as needed for Other (rash). To affected area. 42 g 1 04/30/20 23 Active Acetaminophen 500 MG Oral Tablet (Tylenol)Indica tions:Chronic pain of right knee,Venous insufficiency,V aricose veins of lower extremity, unspecified laterality, unspecified whether complicated take 2 tablets every 8 hours as needed for pain or fever 100 Tablet 09/05/20 23 Active Quik-Sorb Underpad DIRECTED 3 Each 4 11/16/19 24 Active Triamcinolone Acetonide 0.1 % External Cream (Aristocort)Ind ications:Intert maryann APPLY TO AFFECTED AEA TWICE DAILY FOR INTERTRIGO 80 g 4 11/26/19 24 Active busPIRone HCl 10 MG Oral Tablet (Buspar)Indicat ions:Fear of thunderstorms,G AD (generalized anxiety disorder) One tab by mouth twice daily 01/02/20 24 Active Fluticasone Propionate 50 MCG/ACT Nasal Suspension (Flonase)Indica tions:Nasal congestion INSTILL 2 SPRAYS INTO EACH NOSTRIL DAILY *CONGESTION/ALL ERGIES* 16 g 11 01/22/20 24 Active Ammonium Lactate 12 % External Lotion (Lac-Hydrin) APPLY TOPICALLY TO DRY AREAS OF BOTH FEET AT BEDTIME *DRY SKIN* 225 g 5 02/11/20 24 Active linaCLOtide 145 MCG Oral Capsule (Linzess) Take 1 Capsule by mouth daily before breakfast. 90 Capsule 3 02/13/20 24 Active Additional Information Patient not taking.Reported on 07/02/2024 hydroCHLOROthia zide 12.5 MG Oral Capsule TAKE ONE CAPSULE BY MOUTH DAILY FOR HTN/EDEMA 28 Capsule 11 04/23/20 24 Active Daily-Lobo Oral TabletIndicatio ns:Routine medical exam TAKE ONE TABLET BY MOUTH DAILY *SUPPLEMENT* 28 Tablet 11 04/23/20 24 Active Linzess 290 MCG Oral Capsule (linaCLOtide) Take 1 Capsule by mouth daily before breakfast. 90 Capsule 3 04/29/20 24 Active Bisacodyl 5 MG Oral Tablet Delayed Release (Dulcolax) Take 2 tabs and then ok to repeat 1-2 tabs in 24 hours. Water intake minimum 60-80 oz per day 4 Tablet 04/29/20 24 Active Omeprazole 20 MG Oral Capsule Delayed Release (PriLOSEC)Indic ations:Gastroes ophageal reflux disease without esophagitis TAKE ONE CAPSULE BY MOUTH DAILY 1 HOUR BEFORE THE FIRST MEALS OF THE DAY FOR GERD 28 Capsule 4 05/20/20 24 Active Loratadine 10 MG Oral Tablet (Allergy Relief (Loratadine)) Take 1 Tablet by mouth every afternoon. 90 Tablet 3 05/24/20 24 Active Famotidine 20 MG Oral Tablet (Pepcid) TAKE ONE TABLET BY MOUTH DAILY *GERD* 28 Tablet 5 06/25/20 24 Active Lovastatin 20 MG Oral Tablet (Mevacor)Indica tions:Dyslipide paul, goal LDL below 100 TAKE ONE TAB BY MOUTH DAILY FOR CHOLESTEROL 28 Tablet 5 06/25/20 24 Active Mirabegron ER 25 MG Oral Tablet Extended Release 24 Hour (Myrbetriq)Nury cations:Urge incontinence of urine Take 1 Tablet by mouth in the morning. 28 Tablet 4 03/22/20 24 2023 Discontinued documented as of this encounter (statuses as of 09/30/2024) Active Problems Problem Noted Date Diagnosed Date History of breast cancer 02/13/2024 Primary osteoarthritis of left knee 06/17/2017 Venous insufficiency 04/23/2012 Moderate intellectual disability 09/17/2011 Overview (12/09/2018): ICD-10 update of inactive term Anxiety state 09/17/2011 Dyslipidemia, goal LDL below 100 documented as of this encounter (statuses as of 09/30/2024) Resolved Problems Problem Noted Date Diagnosed Date [...] 35.0 to 39.9 with serious comorbidity 03/19/2017 Overview (06/24/2018): bmi= 37.63 03/19/17 ICD-10 update of inactive diagnosis Abrasion of right leg 03/19/20172017 Encounter for screening mamm ogram for breast cancer 06/12/2016 03/19/2017 Body mass index 39.0-39.9, adult 12/29/2015 03/19/2017 Overview (12/29/2015): bmi= 39.51 12/29/15 Bronchitis, complicated 11/08/201503/08 Viral URI with cough 09/05/2015 017 Closed displaced fracture of nasal bone 06/22/2015 03/19/2017 Scalp contusion 06/22/2015 03/19/2017 Severe obesity with body mas s index (BMI) of 35.0 to 39.9 with serious comorbidity 01/10/2015 Overview (06/24/2018): bmi= 39.38 01/10/15 ICD-10 update of inactive diagnosis Severe obesity with body mas s index (BMI) of 35.0 to 39.9 with serious comorbidity 04/15/2014 Overview (06/24/2018): bmi= 37.64 04/15/14 ICD-10 update of inactive diagnosis Anxiety 09/14/2013 08/02/2019 Severe obesity with body mas s index (BMI) of 35.0 to 39.9 with serious comorbidity 08/12/2013 Overview (06/24/2018): BMI= 38.85 08/12/13 ICD-10 update of inactive diagnosis Severe obesity with body mas s index (BMI) of 35.0 to 39.9 with serious comorbidity 11/12/2012 Overview (06/24/2018): bmi= 38.11 11/12/12 ICD-10 update of inactive diagnosis Acute URI 08/10/2012 01/10/2015 Viral infection 08/10/2012 01/10/2015 Severe obesity with body mas s index (BMI) of 35.0 to 39.9 with serious comorbidity 04/23/2012 Overview (06/24/2018): bmi= 39.09 04/23/12 ICD-10 update of inactive [...] .9, isolated (see actual BMI) 12/04/2009 04/10/2010 Overview (12/04/2009): Per Obesity Taxonomy Synovial cyst 08/22/2009 12/28/2018 Need for influenza vaccination 07/03/2009 01/10/2015 Family history of diabetes mellitus 05/30/2009 01/10/2015 Other screening mammogram 05/30/2008 Overview (11/16/2008): Resolved per Screening Diagnosis Protocol #6 Overweight (BMI 25.0-29.9) 02/29/2008 0 12/04/2009 Overview (12/04/2009): Per Obesity Taxonomy DJD, LEFT KNEE 05/30/2006 01/10/2015 SWELLING, LEFT KNEE 05/30/2006 05/24/20 08 Screening for malignant neoplasm of breast 05/26/2006 11/16/2008 Overview (11/16/2008): Resolved per Screening Diagnosis Protocol #6 Special screening for malign ant neoplasms, colon 05/26/2006 11/16/2008 Overview (11/16/2008): Resolved per Screening Diagnosis Protocol #6 Dyslipidemia, goal to be determined 05/26/2006 12/03/2010 Urinary incontinence 07/26/2005 015 Overview (06/09/2017): ICD-10 update of inactive term SPRAIN OF KNEE, LEFT 03/29/2005 015 ADVANCE DIRECTIVE INFORMATION 03/26/2005 01/10/2015 Overview (03/26/2005): No, Advance Directive brochure given to patient. [...] as of this encounter (statuses as of 09/30/2024) Immunizations Name Administration Dates Next Due COVID-19 mRNA, LNP-s, No Pre serve, 2-Dose Series ([employer]) 09/05/2021,11/02/2020,10/12/2020 Covid-19, Mrna, Lnp-s, Pf, B ivalent, 30 Mcg, IM, 12 yrs and above ([employer]) 07/08/2022 H1N1 2009 Influenza, IM 08/24/2009 PPD 02/13/2024,,02/16/2020,10/2017,04/02/2016,04/15/2014,06/10/20 12,06/06/2010,11/30/2008,12/09/2006 Pneumococcal Conjugate Vacc, 13 Valent (Prevnar) 06/10/2018 Pneumococcal Polysaccharide PPV23 (Pneumovax) 08/02/2019 Seasonal Influenza Vac., MDV , IM, 0.5 mL (Fluzone) 05/25/2015,07/16/2014,07/23/2013,05/10,06/03/2011,06/01/2010,05/30/20 09,07/04/2008,07/10/2007,07/09/2006 05/25/2016 Seasonal Influenza, PF, 6 M & above, IM , (FluLaval or Fluzone) 06/01/2020,06/10/2019,06/10/2018,06/0806/17/2018 Seasonal Influenza, Quadriva lent Hd (Fluzone Hd) 05/22/2022,05/25/2021 Seasonal Influenza, Quadriva lent, No Preserve, IM 07/03/2016 07/03/2017 TDAP (age 10 and older)(Boostrix) 04/02/2016 TDAP, [...] do you feel lonely or isolated from ose around you? Never 02/13/2024 Financial Resource [...] ages 0-17 years) Not on file 02/13/2024 Comments No Sex and Gender Information Value Date Recorded Sex Assigned at Female 11/12/2019 10:39 AM EST Legal Sex Female 4:50 AM EST Gender Identity Female 11/12/2019 10:39 AM EST Sexual Orientation Straight 10/29/2019 12 :27 PM EST documented as of this encounter Miscellaneous Notes * Telephone Encounter - Hilda Mayen RN - 07/02/2024 12:19 PM EDT Spoke with Denia - nurse at [facility] that states this procedure was to be cancelled - Claudia has to have procedures done at [facility] due to insurance issues and that she already had a colon/ EGD done at [facility] in February of this year * Telephone Encounter - Hilda Mayen RN - 07/01/2024 9:26 AM EDT Attempted to call for pre anesthesia evaluation. No answer. Voice mail left requesting return call LM with nurse- Denia [phone] documented in this encounter Plan of Treatment Scheduled Procedures Name Priority Associated Diagnoses Date/Ti me COLONOSCOPY FLEXIBLE PROXIMA L DIAGNOSTIC Recall Tubulovillous [...] 02/12/2025 02/13/2024, 06/22/2015 (Discussed) Cologuard 04/25/2025 04/25/2022, 080 05/2022, 04/16/2022, Additional history exists DXA Scan 09/30/2025 09/30/2018 DTap/Tdap Vaccines (3 - Td or Tdap) 04/02/2026 04/02/2016, 12/09/2006, 07/11/1997 Lipid Panel 02/22/2029 02/23/2024, 06/08, 06/01/2021, Additional history exists Hepatitis B Vaccine Completed 05/22/2004, 2003, 01/26/2003 Pneumococcal Vaccine: 50+ Years Completed 08/02/2019, 06/10/2018 Zoster Vaccines Completed [...] Power of Attor michi? No Care Teams Health Information Technologist Relationship Specialty Start Date End Date Chel Dugan MD PCP - General Internal Medicine 03/21/24 documented as of this encounter
[2024-11-02] MEDS: PIPERACILLIN/TAZOBACTAM 4.5 GM/100 ML BAG IV SCH (23:31)
[2024-11-03 06:37] LABS: Basophils # (auto) 0.01 K/uL (0.00-0.20); Basophils % (auto) 0.3 %; Eosinophils # (auto) 0.11 K/uL (0.00-0.50); Eosinophils % (auto) 2.9 %; Hematocrit (blood only) 35.3 % (37.0-47.0); Hemoglobin 11.8 g/dl (12.0-16.0); Immature Granulocytes # (auto) 0.01 K/uL (0.01-0.20); Immature Granulocytes % (auto) 0.3 %; Lymphocytes # (auto) 0.83 K/uL (1.20-3.40); Lymphocytes % (auto) 21.6 %; Mean Corpuscular Hemoglobin 30.3 pg (25.0-34.0); Mean Corpuscular Hgb Conc 33.4 g/dL (32.0-36.0); Mean Corpuscular Volume 90.5 fL (80.0-100.0); Mean Platelet Volume 9.7 fL (9.4-12.4); Monocytes # (auto) 0.54 K/uL (0.11-0.59); Neutrophils # (auto) 2.35 K/uL (1.40-6.50); Neutrophils % (auto) 60.9 %; Platelet Count 187 K/uL (130-400); RDW Coefficient of Variation 13.4 % (11.5-14.5); RDW Standard Deviation 44.9 fL (36.4-46.3); White Blood Count 3.85 K/ul (4.8-10.8)
[2024-11-03 06:41] LABS: Alanine Aminotransferase 62 U/L (7-52); Albumin Globulin Ratio 1.7 (0.9-2); Albumin Level 3.5 gm/dl (3.4-5.0); Alkaline Phosphatase 142 U/L (34-104); Anion Gap 7 (3-11); Aspartate Aminotransferase 55 U/L (13-39); BUN Creatinine Ratio 49.1 (10-20); Bilirubin,Total 0.7 mg/dl (0.2-1.0); Blood Urea Nitrogen 27 mg/dl (6-23); Calcium 8.4 mg/dl (8.6-10.3); Carbon Dioxide 25 mmol/L (21-32); Chloride 107 mmol/L (98-107); Chol HDL Ratio 2.1 (0-5); Cholesterol 109 mg/dl (0-200); Globulin 2.1 gm/dl (2.5-4.0); Glucose 85 mg/dl (70-99(Fasting)); HDL Cholesterol 52 mg/dl; LDL Cholesterol Calculated 47 mg/dl; Magnesium 1.7 mg/dl (1.7-2.4); Potassium 3.3 mmol/L (3.5-5.1); Sodium 139 mmol/L (136-145); Total Protein 5.6 gm/dl (6.0-8.3); Triglycerides 49 mg/dl (0-150); VLDL Cholesterol 10 mg/dl (0-30)
--- NOTE | 2024-11-03 09:52 | Surgery Consultation ---
Date of Consultation November 03, 2024 Assessment & Plan (1) Cholelithiasis: asymptomatic at this time patient is poor surgical candidate with cognitive status no signs of CBD stones or acute cholecystitis would recommend watchful waiting; if begins to have recurrent symptoms or an acute attack then would proceed with surgical intervention History of Present Illness Attending Physician: Sarah Napier MD History of Present Illness This is a 69YO female who came to ED with nausea and vomiting. The patient has a history of intellectual disability as well as dementia. She had multiple episodes of emesis but no reported pain. She is asymptomatic this AM. There is no reported fever or chills. A CT scan showed gallstones and questionable signs of inflammation, there were also elevation of her intrinsic liver enzymes but TB was normal. An MRCP and US done were read as normal except gallstones and no signs of CBD stones of acute cholecystitis. Allergies Allergy/AdvReac Type Severity Reaction Status Date / Time No Known Allergies Allergy Verified 09/27/24 09:47 Home Medications Medication Instructions Recorded Confirmed Type aluminum-mag hydroxide-simethicone 30 ml PO Q4 PRN Gi Upset 12/23/18 08/27/24 History 200 mg-200 mg-20 mg/5 mL oral susp fluticasone propionate 50 2 spray intranasal QAM 12/23/18 08/27/24 History mcg/actuation nasal spray,suspension (Flonase Allergy Relief) lovastatin 20 mg tablet 20 mg PO QAM 12/23/18 08/27/24 History dextromethorphan-guaifenesin 30 1 tab PO Q12H PRN Cough 04/28/19 08/27/24 History mg-600 mg tablet extended [id number] hr (Mucinex DM) loratadine 10 mg tablet (Claritin) 10 mg PO QPM 04/28/19 08/27/24 History acetaminophen 500 mg tablet 1,000 mg PO Q8 PRN Fever Or Pain 02/26/24 08/27/24 History famotidine 20 mg tablet 20 mg PO QAM 02/26/24 08/27/24 History fluoxetine 40 mg capsule 80 mg PO QAM 02/26/24 08/27/24 History melatonin 5 mg tablet 5 mg PO HS 02/26/24 08/27/24 History mirabegron 25 mg tablet,extended 25 mg PO QAM 02/26/24 08/27/24 History release 24 hr (Myrbetriq) omeprazole 20 mg capsule,delayed 20 mg PO QAM 02/26/24 08/27/24 History release sodium chloride 0.65 % nasal spray 1 spray intranasal UD 02/26/24 08/27/24 History aerosol (Saline Nasal) dextromethorphan-guaifenesin 10 10 ml PO Q4H PRN 03/19/24 08/27/24 History mg-100 mg/5 mL oral syrup (Tussin cold/cough/congestion DM) latanoprost (PF) 0.005 % eye drops 1 drp ophthalmic (eye) HS 03/19/24 08/27/24 History in a dropperette linaclotide 145 mcg capsule 145 mcg PO QAM 03/19/24 08/27/24 History (Linzess) ammonium lactate 12 % lotion 1 applic topical DAILY 03/29/24 08/27/24 History triamcinolone acetonide 0.1 % 1 applic topical BID PRN ECZEMA 14 03/29/24 08/27/24 Rx topical cream days #30 grams moisturizer lotion See Rx Instructions .Route 1XD #1 03/30/24 08/27/24 Rx tube buspirone 10 mg tablet 15 mg PO BID 06/10/24 08/27/24 History miscellaneous medical supply 1 ea miscellaneous DAILY #1 ea 08/27/24 08/27/24 Rx miscellaneous medical supply 1 ea miscellaneous DAILY #1 ea 08/27/24 08/27/24 Rx carbamide peroxide 6.5 % ear drops 5 drp otic (ear) DAILY PRN ear wax 09/27/24 09/27/24 History (Debrox) neomycin-bacitracn Zn-polymyx 3.5 1 applic topical DAILY PRN 09/27/24 09/27/24 Rx mg-400 unit-5,000 unit/gram top cuts/scrapes #14 grams oint (Triple Antibiotic) polyethylene glycol 3350 17 gram 17 g PO DAILY #30 ea 09/27/24 09/27/24 Rx oral powder packet (Miralax) soap ea topical 09/27/24 09/27/24 History food supplemt, lactose-reduced See Rx Instructions PO DAILY 09/29/24 09/29/24 Rx 0.04 gram-1 kcal/mL oral liquid #5,688 mL (Boost) multivitamin 1 tab PO QAM 90 days #90 tabs 09/29/24 09/29/24 Rx amlodipine 5 mg tablet 5 mg PO DAILY #30 tabs 10/17/24 Rx diclofenac sodium 1 % topical gel 2 g topical QID #100 grams 10/20/24 Rx (Voltaren Arthritis Pain) Patient History Medical History Intraductal carcinoma of right breast Intertrigo hx Seasonal allergies Constipation Post-traumatic osteoarthritis of knees, bilateral Hx of breast cancer Benign paroxysmal vertigo Unilateral primary osteoarthritis, left knee Age-related nuclear cataract of both eyes Astigmatism Exotropia Myopia Blepharitis Migraine Adjustment disorder with anxiety Recurrent depressive disorder Allergic rhinitis Cervical high risk HPV (human papillomavirus) test positive Surgical History Surgical history unknown Family History Father , of [place] age 40 No problems noted. 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 current occupational status: disabled Feels Safe at Home: Yes Childhood Exposure to Second-Hand Smoke: No Diet: low salt and regular caffeine: Yes Dental Care, Regularly: Yes Physical Activity Frequency: Daily Seatbelt Use: always Sunscreen Use: Yes Assistive Devices: Walker Review of Systems Review of Systems: Unobtainable due to cognitive status (she will answer questions as below but questionable reliability) Constitutional: no fever, no chills and no anorexia Respiratory: no cough and no dyspnea Cardiovascular: no chest pain Gastrointestinal: no abdominal pain, no nausea and no vomiting Musculoskeletal: no back pain Psychiatric: no behavioral changes Physical Exam Constitutional: WD/WN, vitals as above Eyes: PERRL, conjunctivae normal, anicteric sclerae ENMT: external ear and nose normal, oropharynx normal Neck: trachea midline Respiratory: normal respiratory effort, lungs clear to auscultation Cardiovascular: RRR, no murmur, no edema Gastrointestinal (Abdomen): Inspection/Auscultation: abdomen normal to inspection and normal bowel sounds; abdomen not distended and no abdominal surgical scar Percussion/Palpation: abdomen soft; abdomen nontender, no guarding and abdomen not rigid Musculoskeletal: Head/Neck/Chest: normocephalic and head atraumatic Skin: no rashes, warm and dry Psychiatric: Orientation: alert and cooperative Results & Data Vital Signs (Past 12 Hours) Vital Signs Temp Pulse Pulse Resp BP Pulse Ox O2 Del Method 11/03/24 07:45 36.6 C 63 16 122/78 100 Room Air 11/03/24 07:29 36.5 C 63 18 147/79 H 100 Room Air 11/02/24 23:42 Room Air 11/02/24 22:52 36.4 C L 68 12 135/69 100 Room Air 11/02/24 22:11 Room Air Diagnostic Findings EXAM: MR Abdomen Without Intravenous Contrast, MRCP Protocol CLINICAL HISTORY: Reason for exam: ? CBD stone. TECHNIQUE: Multiplanar magnetic resonance images of the abdomen without intravenous contrast using MRCP protocol. COMPARISON: CT abdomen pelvis 11/02/2024 FINDINGS: Bile ducts: No biliary stone. No biliary dilatation. CBD measures 4 mm. No stricturing. Gallbladder: Cholelithiasis. No inflammatory changes around the gallbladder. Liver: Unremarkable. Pancreas: Unremarkable. No ductal dilation. Spleen: Unremarkable. No splenomegaly. Adrenals: Unremarkable. No mass. Kidneys and ureters: Cyst arising from the inferior pole of the left kidney measuring 4.5 x 4.2 cm. Right kidney is unremarkable. No hydronephrosis. Stomach and bowel: Unremarkable. No obstruction. IMPRESSION: 1. No biliary stone or biliary dilatation. 2. Cholelithiasis without acute cholecystitis. US: COMPARISON: CT abdomen pelvis from the same day. TECHNIQUE: Transverse and longitudinal azul scale and color Doppler images of the right upper quadrant were obtained. FINDINGS: Liver: Measures up to 15.1 cm in length. No focal hepatic mass or intrahepatic biliary ductal dilatation. Hepatopedal flow in the portal vein. Gallbladder: Gallstones/sludge in the gallbladder. No significant gallbladder wall thickening or pericholecystic fluid. The common bile duct is not dilated. Pancreas: Free of focal mass, as visualized. Right kidney: Measures up to 9.6 cm. Negative for solid renal mass, hydronephrosis, cyst or shadowing calculus. IMPRESSION: Cholelithiasis without evidence of acute cholecystitis. Follow-up with HIDA scan as clinically relevant.
--- NOTE | 2024-11-03 14:17 | Hospitalist Progress Note ---
Date of Service November 03, 2024 Assessment & Plan (1) Acute cholecystitis: Plan: Rosmery is a 69-year-old female with a past medical history of hypertension, intellectual disability, dimension, anxiety, GERD, hyperlipidemia, history of breast cancer, and urinary incontinence who presents to the ER with new Nausea and vomiting. CT abdomen and pelvis in the ER concerning for acute cholecystitis. Admitted for further workup #cholelithiasis/Transaminitis CT A/P showed concerns for acute cholecystitis with fluid around the gallbladder. MRCP and gallbladder ultrasound showed Cholelithiasis without acute cholecystitis. General surgery consultedrecommend conservative measures for now, continue antibiotics, okay for clear liquid diet advance as tolerated Zosyn continued. IV fluids discontinued Transaminitis and elevation in alkaline phosphatase is mildslightly increased from day prior, continue to trend. No elevation in bilirubin Check biofire and HIDA scan for further eval. NPO at midnight #Intellectual disability/dementia Baseline oriented to self, minimally verbal. Lives in a senior living. #Hypertension - continue amlodipine. Lasix held #Hyperlipidemiacontinue statin #Urinary incontinencecontinue Myrbetriq or formulary equivalent #GERD - continue famotidine and PPI #Mental health - continue BuSpar Dispo: Continued inpatient stay, continuing IV antibiotics and advancing diet as tolerated DVT prophy: SCDs LM for sister 11/03 Admission and Anticipated Discharge Date Admission Date: November 02, 2024 Supervising Physician Co-Signing Physician Notes PA Supervision Note: I did not personally see or examine the patient today, but I verified all iglesias points of EMIL Kapoor's assessment and plan with the following exceptions/additions: None Subjective patient seen while eating lunch, clear liquid diet does not seem to having issues with this Alert and oriented to self but does tell me that she is keeping her gallbladder. She denies any abdominal pain. No caregivers or family at bedside Review of Systems Review of Systems: All systems reviewed & are unremarkable except as noted in Subjective Physical Exam Physical Exam: General: NAD, VS as above, sitting up in bed eating lunch. Very pleasant Resp: normal respiratory effort, lungs clear to auscultation CV: RRR, no murmur, Abd: normal bowel sounds, non tender, soft, no guarding Extremities: Moves all extremities, no edema Neuro: A&O x1, Skin: intact, no lesions noted Results & Data Results & Data Vital Signs (Past 12 Hours) Vital Signs Temp Pulse Pulse Resp BP Pulse Ox O2 Del Method 11/03/24 11:34 97.7 F 64 16 126/82 100 Room Air 11/03/24 07:45 97.9 F 63 16 122/78 100 Room Air 11/03/24 07:29 97.7 F 63 18 147/79 H 100 Room Air Laboratory Results CBC, chemistry, LFTs, lipid panel reviewed PG Care Time/CCT Total # of Minutes Spent Total Time Spent with Patient: Total time spent is greater than 50% in coordination of care (as documented) at patient's floor/unit and/or counseling patient: Coding Level of Care Code 71779 SUB INP/OBS CARE 3/50MIN Diagnoses Acute cholecystitis K81.0
[2024-11-03] MEDS: POTASSIUM CHLORIDE CRTAB 20 MEQ TABCR PO STA (15:01)
[2024-11-03] MEDS: PANTOprazole 40 MG TAB PO SCH (15:02)
[2024-11-03] MEDS: ONDANSETRON 4 MG OD TAB PO STA (16:17)
[2024-11-03] MEDS: MELATONIN 3 MG TAB PO PRN (20:14)
[2024-11-03] MEDS: ACETAMINOPHEN 325 MG TAB PO PRN (20:14)
[2024-11-03] MEDS: busPIRone 15 MG TAB PO SCH (20:14)
[2024-11-03] MEDS: LATANOPROST 0.005% OP SOLN 2.5 ML BTL OP SCH (20:15)
[2024-11-03] MEDS ORDERED: PIPERACILLIN/TAZOBACTAM 4.5 GM/100 ML BAG IV SCH (23:00)
[2024-11-04 06:39] LABS: Basophils # (auto) 0.02 K/uL (0.00-0.20); Basophils % (auto) 0.5 %; Eosinophils # (auto) 0.17 K/uL (0.00-0.50); Eosinophils % (auto) 3.9 %; Hematocrit (blood only) 34.3 % (37.0-47.0); Hemoglobin 11.6 g/dl (12.0-16.0); Immature Granulocytes # (auto) 0.02 K/uL (0.01-0.20); Immature Granulocytes % (auto) 0.5 %; Lymphocytes # (auto) 1.31 K/uL (1.20-3.40); Lymphocytes % (auto) 30.3 %; Mean Corpuscular Hemoglobin 30.4 pg (25.0-34.0); Mean Corpuscular Hgb Conc 33.8 g/dL (32.0-36.0); Mean Platelet Volume 9.4 fL (9.4-12.4); Monocytes # (auto) 0.56 K/uL (0.11-0.59); Neutrophils # (auto) 2.24 K/uL (1.40-6.50); Neutrophils % (auto) 51.8 %; Platelet Count 173 K/uL (130-400); RDW Coefficient of Variation 13.3 % (11.5-14.5); Red Blood Count 3.81 M/uL (4.20-5.40); White Blood Count 4.32 K/ul (4.8-10.8)
[2024-11-04 07:10] LABS: Alanine Aminotransferase 76 U/L (7-52); Albumin Globulin Ratio 1.7 (0.9-2); Albumin Level 3.5 gm/dl (3.4-5.0); Alkaline Phosphatase 146 U/L (34-104); Anion Gap 5 (3-11); Aspartate Aminotransferase 62 U/L (13-39); Bilirubin,Total 0.7 mg/dl (0.2-1.0); Blood Urea Nitrogen 18 mg/dl (6-23); Calcium 8.4 mg/dl (8.6-10.3); Carbon Dioxide 28 mmol/L (21-32); Chloride 104 mmol/L (98-107); Globulin 2.1 gm/dl (2.5-4.0); Glucose 86 mg/dl (70-99(Fasting)); Potassium 3.6 mmol/L (3.5-5.1); Sodium 137 mmol/L (136-145); Total Protein 5.6 gm/dl (6.0-8.3)
[2024-11-04 10:01] LABS: Adenovirus PCR Not Detected (NotDetected); Bordetella parapertussis PCR Not Detected (NotDetected); Bordetella pertussis PCR Not Detected (NotDetected); Chlamydia pneumoniae PCR Not Detected (NotDetected); Coronavirus 229E PCR Not Detected (NotDetected); Coronavirus CoV-2 (COVID19)PCR Not Detected (NotDetected); Coronavirus HKU1 PCR Not Detected (NotDetected); Coronavirus NL63 PCR Not Detected (NotDetected); Coronavirus OC43PCR Not Detected (NotDetected); Human Metapneumovirus PCR Not Detected (NotDetected); Influenza A PCR Not Detected (NotDetected); Influenza B PCR Not Detected (NotDetected); Mycoplasma pneumoniae PCR Not Detected (NotDetected); Parainfluenza Virus 1 PCR Not Detected (NotDetected); Parainfluenza Virus 2 PCR Not Detected (NotDetected); Parainfluenza Virus 3 PCR Not Detected (NotDetected); Parainfluenza Virus 4 PCR Not Detected (NotDetected); Respiratory Syncytial VirusPCR Not Detected (NotDetected); Rhinovirus/Enterovirus PCR Not Detected (NotDetected)
--- NOTE | 2024-11-04 13:52 | Nuclear Medicine Report ---
NM hepatobiliary EF CLINICAL HISTORY: 69 years-old Female with increasing LFTs. Acutely elevated LFTs TECHNIQUE: Following the intravenous administration of 5. mCi of technetium-99m Choletec, sequential abdominal images were obtained. In order to evaluate the contractile response of the gallbladder, 1 .3 mcg of Kinevac was administered by slow intravenous infusion over 30 min starting approximately 60 min after the administration of the radiopharmaceutical. Sequential imaging was continued for 45 mi n after the start of the Kinevac infusion. COMPARISON: CT 11/02/2024 FINDINGS: There is prompt, uniform accumulation of the tracer by the liver. There is normal filling of the int rahepatic ducts, common bile duct and gallbladder and normal excretion of the tracer into the duodenu m. There is normal contraction of the gallbladder. The calculated gallbladder ejection fraction is 97% (normal >40%). There is moderate enterogastric reflux. IMPRESSION: 1. Normal contractile response of the gallbladder to Kinevac infusion. 2. Enterogastric reflux. ACT 112: Negative or not required by law. The above report was generated using voice recognition software. It may contain grammatical, syntax o r spelling errors. Electronically signed by: Nico Youngblood M.D. 11/04/2024 1:51 PM
[2024-11-04] MEDS: FLUTICASONE PROPIONATE NA SPR 16 GM BTL SCH (15:14)
[2024-11-04] MEDS: LOVASTATIN 20 MG TAB PO SCH (15:15)
[2024-11-04] MEDS: amLODIPine BESYLATE 5 MG TAB PO SCH (15:15)
[2024-11-04] MEDS: VIBEGRON 75 MG TAB PO SCH (15:15)
[2024-11-04] MEDS: FAMOTIDINE 20 MG TAB PO SCH (15:15)
[2024-11-04] MEDS: SODIUM CHLORIDE 0.9% IV ONE (15:16)
[2024-11-04] MEDS: SINCALIDE IV ONE (15:16)
--- NOTE | 2024-11-04 15:32 | Hospitalist Progress Note ---
Date of Service November 04, 2024 Assessment & Plan (1) Acute cholecystitis: Plan: Rosmery is a 69-year-old female with a past medical history of hypertension, intellectual disability, dimension, anxiety, GERD, hyperlipidemia, history of breast cancer, and urinary incontinence who presents to the ER with new Nausea and vomiting with abdominal pain. CT abdomen and pelvis in the ER concerning for acute cholecystitis. Admitted for further workup #cholelithiasis/Transaminitis CT A/P showed concerns for acute cholecystitis with fluid around the gallbladder. MRCP and gallbladder ultrasound showed Cholelithiasis without acute cholecystitis. Hida scan showed enterogastric reflux but no cholecystitis General surgery consultedrecommend conservative measures for now, continue antibiotics, okay for clear liquid diet advance as tolerated Zosyn continued. IV fluids discontinued Transaminitis and elevation in alkaline phosphatase is mildslightly increased from day prior, continue to trend. No elevation in bilirubin. Biofire negative. AM CMP , check CK HIDA scan also negative - cause of transaminitis remains unclear - ?viral GI infection. is on fluoxetine 80mg and lovastatin - but has been on this dose for at least a year. Hx of breast CA. Did find report of labs done at [facility] 02/2024 ALT 39, ALK 149. EGD/[facility] 03/2024 w/ benign polyps. Multiple PCP notes in the past reporting nausea and vomiting. Advanced to low fat diet today #Intellectual disability/dementia Baseline oriented to self, minimally verbal. Lives in a [facility]. #Hypertension - continue amlodipine. Lasix held #Hyperlipidemiacontinue statin #Urinary incontinencecontinue Myrbetriq or formulary equivalent #GERD - continue famotidine and PPI #Mental health - continue BuSpar Dispo: Continued inpatient stay, continuing IV antibiotics and advancing diet as tolerated DVT prophy: SCDs LM for sister 11/03 & 11/04 Admission and Anticipated Discharge Date Admission Date: November 02, 2024 Supervising Physician Co-Signing Physician Notes EMIL Supervision Note: I did not personally see or examine the patient today, but I verified all iglesias points of EMIL Kapoor's assessment and plan with the following exceptions/additions: None Subjective patient seen sitting up in the chair, very pleasant Denies any pain Has not eaten today during the time of my visit because she was n.p.o. but RN reports she had no issues with her full liquid diet yesterday Review of Systems Review of Systems: All systems reviewed & are unremarkable except as noted in Subjective Physical Exam Physical Exam: General: NAD, VS as above, sitting up in bed eating lunch. Very pleasant Resp: normal respiratory effort, lungs clear to auscultation CV: RRR, no murmur, Abd: normal bowel sounds, non tender, soft, no guarding Extremities: Moves all extremities, no edema Neuro: A&O x1, Skin: intact, no lesions noted Results & Data Results & Data Vital Signs (Past 12 Hours) Vital Signs Temp Pulse Resp BP Pulse Ox O2 Del Method 11/04/24 14:32 97.9 F 59 L 16 157/74 H 95 Room Air 11/04/24 07:58 Room Air 11/04/24 07:25 97.7 F 60 16 130/76 99 Room Air Laboratory Results CBC chemistry reviewed BioFire reviewed Diagnostic Findings HIDA scan reviewed PG Care Time/CCT Total # of Minutes Spent Total Time Spent with Patient: Total time spent is greater than 50% in coordination of care (as documented) at patient's floor/unit and/or counseling patient: Coding Level of Care Code 25447 SUB INP/OBS CARE 3/50MIN Diagnoses Acute cholecystitis K81.0
[2024-11-04 16:15] LABS: Creatine Kinase 51 U/L (26-192)
[2024-11-04 20:32] VITALS: O2SAT 100
[2024-11-05 07:29] LABS: Alanine Aminotransferase 79 U/L (7-52); Albumin Globulin Ratio 1.8 (0.9-2); Albumin Level 3.9 gm/dl (3.4-5.0); Alkaline Phosphatase 155 U/L (34-104); Anion Gap 7 (3-11); Aspartate Aminotransferase 55 U/L (13-39); BUN Creatinine Ratio 19.6 (10-20); Bilirubin,Total 0.8 mg/dl (0.2-1.0); Blood Urea Nitrogen 11 mg/dl (6-23); Carbon Dioxide 26 mmol/L (21-32); Chloride 103 mmol/L (98-107); Globulin 2.2 gm/dl (2.5-4.0); Glucose 79 mg/dl (70-99(Fasting)); Potassium 3.8 mmol/L (3.5-5.1); Sodium 136 mmol/L (136-145); Total Protein 6.1 gm/dl (6.0-8.3)
[2024-11-05 08:05] VITALS: PULSE 62; RESP 14
[2024-11-05 12:06] VITALS: BP 140/70; TEMP 97.2
--- NOTE | 2024-11-05 13:32 | Discharge Summary ---
Discharge Summary Date of Service November 05, 2024 Principal Dx & Hospital Course #1 = Principal Diagnosis (1) Nausea & vomiting: (2) Cholelithiasis: Plan #cholelithiasis/Transaminitis Rosmery is a 69-year-old female with a past medical history of hypertension, intellectual disability, dimension, anxiety, GERD, hyperlipidemia, history of breast cancer, and urinary incontinence who presents to the ER with new Nausea and vomiting with abdominal pain. CT abdomen and pelvis in the ER concerning for acute cholecystitis. However, MRCP, gallbladder US and HIDA scan did not show cholecystitis, but did have cholelithiasis. Has tolerated diet without further nausea and vomiting. General surgery consulted - no indication for surgery. Antibiotics discontinued as no active infection. Transaminitis mild, and downtrending. Cause not definitive, but suspect viral GI infection. Meds that could cause LFT elevations are not new. Biofire negative, CK WNL. . EGD/COLO 03/2024 w/ benign polyps. Her alk phos is chronically elevated, hx of breast CA. Consider outpatient alk phos iso enzyme, recommend repeat CMP in one week. #Intellectual disability/dementia - Baseline oriented to self, minimally verbal. Lives in a residential, at baseline. #Hypertension - continue amlodipine and lasix #Hyperlipidemiacontinue statin #Urinary incontinencecontinue Myrbetriq #GERD - continue famotidine and PPI #Mental health - continue BuSpar Dispo: discharge to residential today residential updated 11/05 LM for sister Notes For Next Care Provider Consider outpatient alk phos iso enzyme, recommend repeat CMP in one week. Medication Changes From Visit None Admission HPI Per Admitting Provider Pleasant 69-year-old female who lives in a residential. She has intellectual delay and dementia. Over the last 24 hours prior to presentation to ER she developed abdominal discomfort with significant nausea and vomiting. In the emergency department had a CT of the abdomen pelvis suggestive of acute cholecystitis. She had a mildly elevated alkaline phosphatase at 178 with an AST ALT of 46 and 55 respectively. Consultation was obtained with general surgery they are recommending ultrasound and MRCP per the emergency department provider. Patient received IV Zosyn in the ER as well as a couple doses of IV Zofran and a liter of saline. We are called admit the patient for further evaluation and treatment. It should be noted that most of the history is obtained from the past medical h istory specifically a primary care note from August 26, 2024 as well as the patient's caregiver from the residential is at the bedside. Discharge Exam General: NAD, VS as above, sitting up in the chair. Very pleasant Resp: normal respiratory effort, lungs clear to auscultation CV: RRR, no murmur, Abd: normal bowel sounds, non tender, soft, no guarding Extremities: Moves all extremities, no edema Neuro: A&O x1, Skin: intact, no lesions noted Discharge Plan Discharge Items Patient Disposition: Home - Self-Care Reason For Visit: ACUTE CHOLECYSTITIS Discharge Diagnosis: Nausea and vomiting resolved Activity: Resume your previous activity Weightbearing: Full weightbearing Non-emergency contact: Primary Care Provider Call non-emergency contact if: you have any medication questions, your symptoms worsen, your pain is worsening and your temperature is above 101 Follow-up/Referrals: Evi Cano MD [Primary Care Provider] - 11/10/24 3:00 pm (follow up within one week With Isela Sherman PA-c ) Diet: Regular Addtl Attending Provider Instructions: Rosmery, You were hospitalized after having nausea and vomiting, initially there were concerns about your gallbladder being infected. However, after multiple different studies, your gallbladder looks great. Your labs are stable and you have had no pain and eating a normal diet. It is possible that you had a viral GI infection that has resolved. Your Liver function tests were elevated, but have come down slightly and are stable. Recommend repeating these in the next week or so to make sure they continue to improve. No changes to your home medications. Follow-up appointments: Make an appointment with your primary care physician within one week of discharge. A copy of this summary will be sent to them. Every time you see your primary care physician, or any other doctor, bring your medication list, and a list of questions. CONTACT YOUR PRIMARY CARE PROVIDER if you experience any of the following: Shortness of breath or difficulty breathing Fevers or chills Feeling tired with normal activity or experiencing dizziness or fainting Difficulty following your treatment plan, or difficulty taking medications CALL 911 OR GO TO THE EMERGENCY DEPARTMENT if you experience any of the following: Severe abdominal pain or nausea/vomiting Severe chest pain, or chest pain that radiates (moves) to your jaw or arm Sudden, severe shortness of breath or difficulty breathing Thank you for allowing us to participate in your care. Ailyn Kapoor PA-C Pending Studies at Discharge: No Stand-Alone Forms: My [facility], Smoking Cessation Medications and DC Order Prescriptions: Continued moisturizer lotion See Rx Instructions .ROUTE 1XD Qty: 1 11RF Rx Instructions: amt. as needed for B/l arms 1 time daily; amlodipine 5 mg tablet 5 mg PO DAILY Qty: 30 2RF diclofenac sodium [Voltaren Arthritis Pain] 1 % gel 2 g topical QID Qty: 100 3RF Rx Instructions: place a dime sized drop in the bilateral knees up to 4 times a day. Triple Antibiotic 3.5mg-400 unit- 5,000 unit/gram ointment 1 applic topical DAILY PRN (Reason: cuts/scrapes) Qty: 14 0RF soap Shampoo topical Rx Instructions: baby shampoo to cleanse eyelashes polyethylene glycol 3350 [Miralax] 17 gram powder in packet 17 g PO DAILY Qty: 30 1RF Debrox 6.5 % drops 5 drp otic (ear) DAILY PRN (Reason: ear wax) Rx Instructions: Instill then place cotton in ear for 15-30 minutes to soften cerumen for removal Boost 0.04 gram- 1 kcal/mL liquid See Rx Instructions PO DAILY Qty: 5688 1RF Rx Instructions: 1 bottle at dinner time once daily orally daily; multivitamin Tablet 1 tab PO QAM 90 Days Qty: 90 4RF ammonium lactate 12 % lotion 1 applic topical DAILY Rx Instructions: Apply topically to dry areas of both feet at bedtime for dry skin triamcinolone acetonide 0.1 % cream 1 applic TOPICAL BID PRN (Reason: ECZEMA) 14 Days Qty: 30 1RF Rx Instructions: Please apply twin film twice daily to affected areas for eczema flares. Once rash resolves, this no longer needs to be applied. buspirone 10 mg tablet 15 mg PO BID Patient Comments: PER JANINA SHE "THINKS" SHE IS ON 15MG BID NOW. WILL BRING MED LIST TO APPT ON 06/15 TO CONFIRM. miscellaneous medical supply Misc 1 ea miscellaneous DAILY Qty: 1 0RF Rx Instructions: 1 bed alarm, use while pt is in bed at all times. miscellaneous medical supply Kit 1 ea miscellaneous DAILY Qty: 1 0RF Rx Instructions: 1 chair alarm, use while pt is in the chair at all times alum-mag hydroxide-simeth 200-200-20 mg/5 mL Suspension 30 ml PO Q4 PRN (Reason: Gi Upset) lovastatin 20 mg Tablet 20 mg PO QAM fluticasone propionate [Flonase Allergy Relief] 50 mcg/actuation [place],Suspension 2 spray INTRANASAL QAM Mucinex DM 30-600 mg Tablet Extended Release 12 Hr 1 tab PO Q12H PRN (Reason: Cough) loratadine [Claritin] 10 mg Tablet 10 mg PO QPM fluoxetine 40 mg capsule 80 mg PO QAM famotidine 20 mg tablet 20 mg PO QAM omeprazole 20 mg capsule,delayed release(DR/EC) 20 mg PO QAM Saline Nasal 0.65 % Aerosol,[place] 1 spray INTRANASAL UD Rx Instructions: Immediately before steroid nasal spray or as needed melatonin 5 mg Tablet 5 mg PO HS mirabegron [Myrbetriq] 25 mg tablet extended release 24 hr 25 mg PO QAM acetaminophen 500 mg tablet 1,000 mg PO Q8 PRN (Reason: Fever Or Pain) dextromethorphan-guaifenesin [Tussin DM] 10-100 mg/5 mL Syrup 10 ml PO Q4H PRN (Reason: cold/cough/congestion) latanoprost (PF) 0.005 % Dropperette 1 drp OPHTHALMIC (EYE) HS Rx Instructions: B/L eyes Held Linzess 145 mcg Capsule 145 mcg PO QAM Hold Instructions: Home Medication placed on hold at Doctor's office Discontinued amlodipine 5 mg tablet Discharge Orders: Discharge Order (Routine); Ordered 11/05/24 Ordered By: Ailyn Kapoor Admission Data Admit Date/Time: 11/02/24 17:56 Attending Provider: Sarah Napier Admit Provider: Davy Rosario Primary Care Provider: Evi Cano Other Providers: Stanislaw Kang; Davy Rosario Other Interventions: Discharge Summary Assessment (RN) Last Done: 11/05/24 13:38 Hospital Stay Data Consultations 11/02/24 17:00 Consult General Surgery Stat 11/02/24 17:54 ED Decision to Admit Stat Diagnostic Imagining Performed Abdomen/Pelvis CT 11/02/24 15:33 INDICATION: Nausea and vomiting. COMPARISON: No relevant priors available. TECHNIQUE: Axial CT images of the abdomen and pelvis were obtained following IV contrast administration. Coronal and sagittal reformations were reviewed. FINDINGS: Visualized lung bases appear unremarkable. Calcified granuloma in the right lower lobe. Small amount of fluid surrounding the gallbladder. Gallbladder distention. The liver, spleen, pancreas and adrenal glands appear unremarkable. No hydronephrosis. Simple appearing 4 cm left renal cyst. No evidence of bowel obstruction/colitis/appendicitis. No free air. No drainable fluid collection. Negative for abdominal aortic aneurysm or dissection. The urinary bladder appears unremarkable. Chronic appearing left rib deformities. Degenerative changes in the spine. No acute osseous abnormality evident. IMPRESSION: 1. Findings concerning for acute cholecystitis. Follow-up with ultrasound/HIDA scan as clinically relevant. 2. Simple appearing 4 cm left renal cyst. Electronically signed by Kevin Shaver 11-02-2024 4:40 PM Gallbladder Ultrasound 11/02/24 17:34 INDICATION: Abdominal pain. COMPARISON: CT abdomen pelvis from the same day. TECHNIQUE: Transverse and longitudinal azul scale and color Doppler images of the right upper quadrant were obtained. FINDINGS: Liver: Measures up to 15.1 cm in length. No focal hepatic mass or intrahepatic biliary ductal dilatation. Hepatopedal flow in the portal vein. Gallbladder: Gallstones/sludge in the gallbladder. No significant gallbladder wall thickening or pericholecystic fluid. The common bile duct is not dilated. Pancreas: Free of focal mass, as visualized. Right kidney: Measures up to 9.6 cm. Negative for solid renal mass, hydronephrosis, cyst or shadowing calculus. IMPRESSION: Cholelithiasis without evidence of acute cholecystitis. Follow-up with HIDA scan as clinically relevant. Electronically signed by Kevin Shaver 11-02-2024 6:34 PM Cholangiopancreatography MRI 11/02/24 17:55 Exam(s): MRI MRCP EXAM: MR Abdomen Without Intravenous Contrast, MRCP Protocol CLINICAL HISTORY: Reason for exam: ? CBD stone. TECHNIQUE: Multiplanar magnetic resonance images of the abdomen without intravenous contrast using MRCP protocol. COMPARISON: CT abdomen pelvis 11/02/2024 FINDINGS: Bile ducts: No biliary stone. No biliary dilatation. CBD measures 4 mm. No stricturing. Gallbladder: Cholelithiasis. No inflammatory changes around the gallbladder. Liver: Unremarkable. Pancreas: Unremarkable. No ductal dilation. Spleen: Unremarkable. No splenomegaly. Adrenals: Unremarkable. No mass. Kidneys and ureters: Cyst arising from the inferior pole of the left kidney measuring 4.5 x 4.2 cm. Right kidney is unremarkable. No hydronephrosis. Stomach and bowel: Unremarkable. No obstruction. IMPRESSION: 1. No biliary stone or biliary dilatation. 2. Cholelithiasis without acute cholecystitis. Electronically signed by: Damon Clay MD 11/02/24 20:28 PM Hepatobiliary Scan Nuclear Medicine 11/04/24 11:30 NM hepatobiliary EF CLINICAL HISTORY: 69 years-old Female with increasing LFTs. Acutely elevated LFTs TECHNIQUE: Following the intravenous administration of 5. mCi of technetium-99m Choletec, sequential abdominal images were obtained. In order to evaluate the contractile response of the gallbladder, 1.3 mcg of Kinevac was administered by slow intravenous infusion over 30 min starting approximately 60 min after the administration of the radiopharmaceutical. Sequential imaging was continued for 45 min after the start of the Kinevac infusion. COMPARISON: CT 11/02/2024 FINDINGS: There is prompt, uniform accumulation of the tracer by the liver. There is normal filling of the intrahepatic ducts, common bile duct and gallbladder and normal excretion of the tracer into the duodenum. There is normal contraction of the gallbladder. The calculated gallbladder ejection fraction is 97% (normal >40%). There is moderate enterogastric reflux. IMPRESSION: 1. Normal contractile response of the gallbladder to Kinevac infusion. 2. Enterogastric reflux. ACT 112: Negative or not required by law. The above report was generated using voice recognition software. It may contain grammatical, syntax or spelling errors. Electronically signed by: Nico Youngblood M.D. 11/04/2024 1:51 PM Pending Results Patient Have Any Pending Studies at Discharge: No Discharge Instructions Given to Patient (Per Discharging Provider) Rosmery, You were hospitalized after having nausea and vomiting, initially there were concerns about your gallbladder being infected. However, after multiple different studies, your gallbladder looks great. Your labs are stable and you have had no pain and eating a normal diet. It is possible that you had a viral GI infection that has resolved. Your Liver function tests were elevated, but have come down slightly and are stable. Recommend repeating these in the next week or so to make sure they continue to improve. No changes to your home medications. Follow-up appointments: Make an appointment with your primary care physician within one week of discharge. A copy of this summary will be sent to them. Every time you see your primary care physician, or any other doctor, bring your medication list, and a list of questions. CONTACT YOUR PRIMARY CARE PROVIDER if you experience any of the following: Shortness of breath or difficulty breathing Fevers or chills Feeling tired with normal activity or experiencing dizziness or fainting Difficulty following your treatment plan, or difficulty taking medications CALL 911 OR GO TO THE EMERGENCY DEPARTMENT if you experience any of the following: Severe abdominal pain or nausea/vomiting Severe chest pain, or chest pain that radiates (moves) to your jaw or arm Sudden, severe shortness of breath or difficulty breathing Thank you for allowing us to participate in your care. Ailyn Kapoor PA-C Supervising Physician Co-Signing Physician Notes PA Supervision Note: I did not personally see or examine the patient today, but I verified all iglesias points of EMIL Kapoor's assessment and plan with the following exceptions/additions: None Total Time Total Time Spent Total Time Spent (In Minutes): Time spent day of discharge 40 minutes including direct patient care, medication reconciliation, documentation, review of labs and images, and coordination of care. Coding Level of Care Code 99572 INP/OBS DISCH >30 MIN Diagnoses Nausea & vomiting R11.2 Cholelithiasis K80.20
--- NOTE | 2024-11-05 23:22 | Electrocardiogram Report ---
Test Reason : Blood Pressure : */* mmHG Vent. Rate : 68 BPM Atrial Rate : 68 BPM P-R Int : 154 ms QRS Dur : 78 ms QT Int : 482 ms P-R-T Axes : 44 41 76 degrees QTcB Int : 512 ms Poor data quality, interpretation may be adversely affected Normal sinus rhythm Nonspecific ST and T wave abnormality Prolonged QT Abnormal ECG When compared with ECG of 21-Aug-2024 09:13, Premature supraventricular complexes are no longer Present Inverted T waves have replaced nonspecific T wave abnormality in Anterior leads Confirmed by Buck Sher ([id number]) on 11/05/2024 11:22:16 PM Referred By: REFERRED SELF Confirmed By: Buck Sher
== END 2024-11-05 15:50 | disposition home or self-care (01) | DRG 446 ==
LOC: ED 12:27 → INTOOBSV 17:56 → EDINP 17:56 → SUATTDRO 17:56 → 3E 22:11